=== PATIENT | female | born 1945 | race Caucasian/White ===

== ENCOUNTER → 2017-10-01 16:00 | Outpatient (CLI) | payer MEDICARE, MEDICAID, SELFPAY ==
--- NOTE | 2017-10-01 16:00 | DT_ITS ---
This patient was seen during an EMR downtime September 27, 2017 - October 04, 2017. This patient may have a combination of paper and electronic documentation or all paper documentation. All documentation is viewable within the e-chart portion of [employer] for each patient visit.
[2017-10-05 16:43] LABS: Hematocrit 37.9 % (37-47); Hemoglobin 11.3 g/dl (12.0-15.0); Mean Corpuscular Hgb 26.1 pg (27.0-32.0); Mean Corpuscular Volume 87.5 fL (81-99); Red Blood Count 4.33 M/mm3 (4.2-5.4); White Blood Count 11.5 K/mm3 (4.4-11.0)
[2017-10-05 16:44] LABS: Absolute Neutrophil Count 6.3 X10^3/uL (2.0-7.7); Basophil# 0.03 X10^3/uL; Basophil% 0.3 % (0-1); Eosinophil# 0.05 X10^3/uL; Eosinophils% 0.4 % (0-5); Lymphocyte % 23.6 % (19-41); Mean Corp Hgb Conc 29.8 g/gl (32-36); Mean Platelet Vol. 9.4 fl (6.2-12.0); Monocyte# 2.31 X10^3/uL; Monocyte% 20.2 % (0-10); Neutrophil # 6.32 X10^3/uL (2.7-7.7); Neutrophil % 55.1 % (47-70); POSITIVE COUNT NO; POSITIVE DIFFERENTIAL NO; POSITIVE MORPHOLOGY NO; Platelet Count 490 K/mm3 (150-450); RBC Distribution Width CV 14.9 % (11.6-14.6); RBC Distribution Width SD 47.1 fl (35.1-43.9)
[2017-10-05 16:54] LABS: ALB/GLOB Ratio 0.6 RATIO (0.9-2.4); AST(SGOT) 15 U/L (15-37); Alanine Aminotransfer ALT/SGPT 10 U/L (13-56); Albumin, Serum 2.7 g/dL (3.2-5.0); Alkaline Phosphatase 102 U/L (45-117); BUN 5 mg/dL (7-18); BUN/Creat Ratio 10.4 RATIO (10-20); Calcium,Total 8.9 mg/dL (8.5-10.1); Cholesterol 111 mg/dL (200); Creatinine, Serum 0.48 mg/dL (0.55-1.02); EST Glomerular Filtration Rate 135 mL/min (>60); Est Glom Filt Rate - Afr Amer 164 mL/min (>60); Globulin 4.6 g/dL (2.2-4.2); Glucose 102 mg/dL (74-106); Protein, Total 7.3 g/dL (6.4-8.2)
[2017-10-05 16:55] LABS: Anion Gap 8 (5-15); Chloride 100 mmol/L (98-107); High Density Lipoprotein 43 mg/dL; Potassium 3.5 mmol/L (3.5-5.1); Sodium Level 137 mmol/L (136-145); Thyroid Stim Hormone (TSH) 0.74 uIU/mL (0.358-3.74); Triglycerides 93 mg/dL; Very Low Density Lipoprotein 19 mg/dL (5-40)
[2017-10-05 17:07] LABS: Hemoglobin A1c 5.5 % (4.2-6.3)
== END ==
PROVIDERS: Visit Provider Family Medicine
DX: E11.9 Type 2 diabetes mellitus without complications (principal); Z72.0 Tobacco use
CPT/HCPCS: 36415; 80053; 80061; 83036; 84443; 85025

== ENCOUNTER → 2017-10-13 14:24 | Outpatient (CLI) | payer MEDICARE, SELFPAY ==
--- NOTE | 2017-10-13 14:33 | RAD_ITS ---
STUDY: X-RAY CHEST REASON FOR EXAM: Female, 72 years old. Cough, COPD exacerbation. TECHNIQUE: PA and lateral chest COMPARISON: None. FINDINGS: There is mild underlying pulmonary hyperlucency with flattening of the hemidiaphragms and increased AP diameter of the chest suggesting the presence of underlying COPD/emphysema. There is mild interstitial prominence perihilar bilateral with small bilateral layering pleural effusions and bibasilar atelectasis. There is no significant cardiomegaly. Normal mediastinal silhouette, mercedes and pleural margins. Osteopenia, mild scoliosis. Mild thoracic kyphosis and minimal thoracic degenerative disc disease. RAD/Chest PA and Lateral IMPRESSION: Small bilateral effusions, bibasilar atelectasis, with suspected very minimal perihilar infiltrates. The pattern suggests the possibility of mild CHF. Correlate also for any evidence of acute pneumonia. Electronically Signed: Tobi Pratima, at 15:26 EDT Tel , Service support ,
== END ==
PROVIDERS: Family Provider Family Medicine; PCP Family Medicine; Visit Provider Family Medicine
DX: J44.1 Chronic obstructive pulmonary disease with (acute) exacerbation (principal); N39.0 Urinary tract infection, site not specified
CPT/HCPCS: 71046; 87086; 87088; 87186

== ENCOUNTER → 2017-11-16 08:43 | Outpatient (CLI) | payer MEDICARE, SELFPAY ==
--- NOTE | 2017-11-16 12:03 | PFTCOMP_ITS ---
COMPLETE PULMONARY FUNCTION TEST INTERPRETATION Brief HPI: Patient is a 72 year old female, currently under the care of Dr. Del Valle, who presents to [facility] for complete pulmonary function tests secondary to diagnosis of COPD. Respiratory therapist reports good effort and reproducible results. Interpretation: Forced expiration spirometry shows a moderate large airways obstructive ventilatory defect with an FEV1 of 68% predicted. There is no significant bronchodilator response by ATS criteria. Spirograms are of good quality and plateau slowly, indicating slowly emptying areas of the lungs. The respiratory flow volume loop shows decreased expiratory flow rates at high lung volumes consistent with small airways obstruction. Lung volumes by body plethysmography show a normal total lung capacity at 3.89 L , 93% predicted. All other lung volumes are within normal limits. Diffusion capacity by carbon monoxide is normal at 77% predicted. The airway resistance is elevated. No previous pulmonary function tests were available for review. Impression: Irreversible moderate large airways obstructive ventilatory defect consistent with a diagnosis of chronic bronchitis
== END ==
PROVIDERS: Family Provider Family Medicine; PCP Family Medicine; Visit Provider Family Medicine
DX: J44.9 Chronic obstructive pulmonary disease, unspecified (principal)
CPT/HCPCS: 94060; 94726; 94729

== ENCOUNTER → 2017-11-19 14:04 | Outpatient (CLI) | payer MEDICARE, SELFPAY ==
[2017-11-19 16:06] LABS: Uric Acid 6.6 mg/dL (2.6-6.0)
[2017-11-19 16:20] LABS: Vitamin D,25 Hydroxy 16.1 ng/mL (29.95-100.01)
== END ==
PROVIDERS: Family Provider Family Medicine; PCP Family Medicine; Visit Provider Family Medicine
DX: E55.9 Vitamin D deficiency, unspecified (principal); M10.9 Gout, unspecified
CPT/HCPCS: 36415; 82306; 84550

== ENCOUNTER → 2017-12-20 13:49 | Outpatient (CLI) | payer MEDICARE, SELFPAY | PROVIDERS: Family Provider Family Medicine; PCP Family Medicine; Visit Provider Family Medicine | DX: E04.2 Nontoxic multinodular goiter (principal); I38 Endocarditis, valve unspecified | CPT/HCPCS: 76536; 93306 ==

== ENCOUNTER → 2018-01-11 14:14 | Outpatient (CLI) | payer MEDICARE, SELFPAY | PROVIDERS: Family Provider Family Medicine; PCP Family Medicine; Visit Provider Family Medicine | DX: N39.0 Urinary tract infection, site not specified (principal); Z72.0 Tobacco use; E55.9 Vitamin D deficiency, unspecified; I10 Essential (primary) hypertension; M10.9 Gout, unspecified; E11.9 Type 2 diabetes mellitus without complications | CPT/HCPCS: 87086; 87088; 87186 ==

== ENCOUNTER → 2018-05-03 10:02 | Outpatient (CLI) | payer MEDICARE, SELFPAY ==
[2018-05-03 10:06] LABS: Mucous, Urine 0 SEEN /hpf (<or=2+); Red Blood Cells-Urine 0 SEEN /hpf (0-5)
[2018-05-03 12:15] LABS: Absolute Neutrophil Count 7.2 X10^3/uL (2.0-7.7); Basophil# 0.02 X10^3/uL; Basophil% 0.1 % (0-1); Eosinophil# 0.09 X10^3/uL; Eosinophils% 0.7 % (0-5); Hematocrit 43.2 % (37-47); Hemoglobin 13.6 g/dl (12.0-15.0); Lymphocyte % 29.5 % (19-41); Mean Corp Hgb Conc 31.5 g/gl (32-36); Mean Corpuscular Hgb 27.1 pg (27.0-32.0); Mean Corpuscular Volume 86.1 fL (81-99); Mean Platelet Vol. 9.6 fl (6.2-12.0); Monocyte% 16.2 % (0-10); Neutrophil # 7.21 X10^3/uL (2.7-7.7); Neutrophil % 53.3 % (47-70); Platelet Count 409 K/mm3 (150-450); RBC Distribution Width CV 13.8 % (11.6-14.6); RBC Distribution Width SD 43.3 fl (35.1-43.9); Red Blood Count 5.02 M/mm3 (4.2-5.4); White Blood Count 13.6 K/mm3 (4.4-11.0)
[2018-05-03 12:16] LABS: Differential Indicated SCAN CRITERIA MET; POSITIVE COUNT NO; POSITIVE DIFFERENTIAL YES; POSITIVE MORPHOLOGY NO
[2018-05-03 12:23] LABS: ALB/GLOB Ratio 0.9 RATIO (0.9-2.4); AST(SGOT) 14 U/L (15-37); Alanine Aminotransfer ALT/SGPT 15 U/L (13-56); Albumin, Serum 3.9 g/dL (3.2-5.0); Alkaline Phosphatase 139 U/L (45-117); Anion Gap 9 (5-15); BUN 16 mg/dL (7-18); BUN/Creat Ratio 20.2 RATIO (10-20); Calcium,Total 9.7 mg/dL (8.5-10.1); Chloride 101 mmol/L (98-107); Creatinine, Serum 0.79 mg/dL (0.55-1.02); EST Glomerular Filtration Rate 75 mL/min (>60); Est Glom Filt Rate - Afr Amer 91 mL/min (>60); Globulin 4.4 g/dL (2.2-4.2); Glucose 160 mg/dL (74-106); Potassium 4.8 mmol/L (3.5-5.1); Protein, Total 8.3 g/dL (6.4-8.2); Sodium Level 137 mmol/L (136-145); Uric Acid 7.7 mg/dL (2.6-6.0)
[2018-05-03 12:35] LABS: Color, Urine Yellow (Yellow); Glucose, Dipstick Normal (Normal); Ketone-Dipstick Negative (Negative); Leukocyte Esterase-Dipstick 500 /ul (Negative); Nitrite-Dipstick Negative (Negative); Occult Blood-Urine 25 /ul (Negative); Protein-Dipstick 30 mg/dl (Negative); Urine Bilirubin Dipstick Negative (Negative); Urine Clarity Sl. Cloudy (Clear); Urine Urobilinogen Normal (Normal)
[2018-05-03 12:47] LABS: Bacteria 4+ /hpf (None Seen); Squamous Epithelial Cells - UA 0-5 SEEN /hpf (5-10); White Blood Cells 50-100 SEEN /hpf (0-5)
[2018-05-03 12:53] LABS: Hemoglobin A1c 8.8 % (4.2-6.3)
[2018-05-03 12:59] LABS: Differential Comment SCANNED
[2018-05-03 13:14] LABS: Vitamin D,25 Hydroxy 50.3 ng/mL (29.95-100.01)
== END ==
PROVIDERS: Family Provider Family Medicine; PCP Family Medicine; Visit Provider Family Medicine
DX: E11.9 Type 2 diabetes mellitus without complications (principal); Z72.0 Tobacco use; E55.9 Vitamin D deficiency, unspecified; M10.9 Gout, unspecified; I10 Essential (primary) hypertension; N39.0 Urinary tract infection, site not specified
CPT/HCPCS: 36415; 80053; 81001; 82306; 83036; 84550; 85025; 87086; 87088; 87186

== ENCOUNTER 2018-09-21 00:06 | Inpatient (IN) | payer MEDICARE, SELFPAY ==
[2018-09-21] VITALS (22 sets, daily range): BP systolic 102–198; BP diastolic 52–93; PULSE 50–82; RESP 16–24; TEMP 36.8–37.4; O2SAT 93–100; BMI 28.9; BMI 29.0; BMI 29.2
--- NOTE | 2018-09-21 00:23 | RAD_ITS ---
STUDY: X-RAY - PELVIS AND LEFT HIP REASON FOR EXAM: Female, 73 years old. Left hip pain status post fall TECHNIQUE: 2 views of the left hip with AP view pelvis. COMPARISON: None. FINDINGS: There is a non-specific bowel gas pattern. Normal visualized soft tissue structures. Mild degenerative change of bilateral sacroiliac joints and of the visualized lower lumbar spine. Normal bilateral iliac wings . Normal bilateral superior and inferior pubic rami. Normal pubic symphysis. Normal bilateral ischial tuberosities. Left hip is in normal alignment with moderate degenerative change. Mildly impacted fracture deformity of the mid left femoral neck. Right hip is in normal alignment with mild degenerative change. No right femoral fracture. RAD/HIP, UNI W/ Pelvis 2-3 Views IMPRESSION: 1. Impacted transcervical left femoral neck fracture 2. Mild to moderate bilateral hip and sacroiliac joint osteoarthritic change. Electronically Signed: Nick Hammonds MD at 2:50 EDT Tel , Service support ,
--- NOTE | 2018-09-21 00:25 | ED.DCSUM_ITS ---
- ER Visit Summary Date of Service: 09/21/18 Chief Complaint: Fall History of Present Illness: The patient is a 73 F presenting after fall. Patient states she was using her walker trying to get back into her house. She stepped down one step and lost her balance. She fell onto her left hip. She did not hit her head or lose consciousness. She is not on anticoagulants. She was unable to get up after the fall and EMS was called. Physical Examination: Vitals are stable. Patient is afebrile. Alert no acute distress. HEENT exam is unremarkable. Neck is nontender Lungs are clear and equal bilaterally. Heart is regular rate and rhythm. Abdomen is soft nontender nondistended. Extremities left hip tenderness, left lower extremity externally rotated and shortened, pain with logrolling. Neurovascularly intact distally. Skin is warm and dry. No focal neurologic deficit. Remainder of exam is unremarkable. Emergency Department Course and Treatment: Patient was given morphine, Zofran IV. CBC shows white count 12.2, chemistries unremarkable. Left hip x-ray shows impacted transcervical left femoral neck fracture. Patient was given additional dose of morphine. Discussed with the hospitalist and orthopedics. Disposition: Admission Impression: Left hip fracture status post mechanical fall This note was generated with [employer] dictation software. It may contain incorrect words, spelling, and punctuation that were not noted in review of the chart prior to signing ED Disposition - Plan for ED Patient:
[2018-09-21] MEDS: Ondansetron 4 MG/2 ML Vial IV (00:53)
[2018-09-21] MEDS: Morphine 4 MG/ML Syringe IV ×3 (00:53→04:43)
[2018-09-21 00:57] LABS: Absolute Lymphocyte Count 3.55 X10^3/ul (0.83-4.51); Absolute Neutrophil Count 5.7 X10^3/uL (2.0-7.7); Basophil# 0.02 X10^3/uL; Basophil% 0.2 % (0-1); Eosinophil# 0.08 X10^3/uL; Eosinophils% 0.7 % (0-5); Hematocrit 41.9 % (37-47); Hemoglobin 13.9 g/dl (12.0-15.0); Lymphocyte # 3.55 X10^3/ul (4.0); Mean Corp Hgb Conc 33.2 g/gl (32-36); Mean Corpuscular Hgb 27.7 pg (27.0-32.0); Mean Corpuscular Volume 83.6 fL (81-99); Mean Platelet Vol. 9.4 fl (6.2-12.0); Monocyte% 22.9 % (0-10); Neutrophil # 5.69 X10^3/uL (2.7-7.7); Neutrophil % 46.4 % (47-70); Platelet Count 334 K/mm3 (150-450); RBC Distribution Width SD 42.1 fl (35.1-43.9); Red Blood Count 5.01 M/mm3 (4.2-5.4); White Blood Count 12.2 K/mm3 (4.4-11.0)
[2018-09-21 00:58] LABS: Differential Indicated SCAN CRITERIA MET; POSITIVE COUNT NO; POSITIVE DIFFERENTIAL YES; POSITIVE MORPHOLOGY NO
[2018-09-21 01:08] LABS: Anion Gap 8 (5-15); BUN 18 mg/dL (7-18); BUN/Creat Ratio 20.5 RATIO (10-20); Calcium,Total 9.1 mg/dL (8.5-10.1); Chloride 97 mmol/L (98-107); Creatinine, Serum 0.88 mg/dL (0.55-1.02); EST Glomerular Filtration Rate 67 mL/min (>60); Est Glom Filt Rate - Afr Amer 81 mL/min (>60); Estimated Creatinine Clearance 40.29 ml/min; Glucose 124 mg/dL (74-106); Potassium 3.7 mmol/L (3.5-5.1); Sodium Level 134 mmol/L (136-145)
[2018-09-21 01:33] LABS: Differential Comment SCANNED; Reactive Lymphocyte 2+
--- NOTE | 2018-09-21 03:57 | PCM.HP.STD ---
Problem List (1) Left hip pain Status: Acute History of Present Illness Date of Admission: 09/21/18 Chief Complaint: Left hip pain The patient is a 73 year old F was seen in the emergency room at [facility] after sustaining a fall at home landing on her left hip and complaining of inability to ambulate due to severe left hip pain. Work-up in the emergency room included x-rays of the left hip and pelvis, there was noted to be an impacted transcervical left femoral neck fracture, lab was drawn, white blood cells were slightly elevated at 12.2, glucose was 124, sodium was 134 and the remainder the patient's labs were unremarkable. Patient will be admitted to [place] [address], orthopedic surgery will be consulted (Dr. Jackson). Past Medical History Allergies Sulfa (Sulfonamide Antibiotics) Allergy (Verified 09/21/18 00:17) Hives atorvastatin Adverse Reaction (Verified 09/21/18 00:17) Nausea Home Medications: Ambulatory Orders Medication Instructions Recorded Diltiazem HCl [Cartia Xt] 1 tab PO DAILY 09/21/18 Ergocalciferol [Vitamin D] 1 tab PO QWEEK 09/21/18 Famotidine 20 mg PO BID 09/21/18 Fluticasone/Vilanterol [Breo 1 puff IH DAILY PRN 09/21/18 Ellipta 100-25 Mcg INH] Hydrochlorothiazide [Hctz] 25 mg PO DAILY 09/21/18 Lisinopril [Zestril] 20 mg PO DAILY 09/21/18 Metformin HCl 1,000 mg PO BID 09/21/18 Metoprolol Succinate 100 mg PO BID 09/21/18 Pyridoxine HCl (Vitamin B6) [B-6] 100 mg PO DAILY 09/21/18 Tobramycin Sulf 0.3% [Tobrex] 1 drop LEFT EYE Q4H PRN 09/21/18 Surgical History: cholecystectomy, hysterectomy, tonsillectomy, - - Repair of right femoral fracture Psychiatric History: No pertinent psych hx 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 Lives: With Family Smoking Status: Current every day smoker Tobacco Use: Cigarettes Alcohol: Occasional Drugs: None - *Family History Maternal History Items: Heart Disease Paternal History Items: Heart Disease Review of Systems Constitutional: Denies: Anorexia, Chills, Fever, Night Sweats, Malaise, Weakness, Weight Change, Fatigue Eyes: Denies: Conjunctivae Inflammation, Double vision, Drainage HEENT: Denies: Difficulty Swallowing, Dysphasia, Ear Pain, Eye Pain, Hearing Changes, Nasal bleeding, Nasal Congestion, Post Nasal Drip Cardiovascular: Denies: Chest Pain, Claudication, Chest Pressure, Chest Tightness, Edema, Heaviness, Light Headedness, Orthopnea, Palpitations, Paroxysmal Noc. Dyspnea Respiratory: Denies: Cough, Hemoptysis, Pleuritic Pain, Shortness of Breath, Shortness of breath at rest, Shortness of breath upon exertion, Sputum production Gastrointestinal: Denies: Abdominal Pain, Constipation, Diarrhea, Hematemesis, Hematochezia, Nausea, Melena, Vomiting Genitourinary: Denies: Dysuria, Frequency, Hematuria, Hesitancy, Nocturia, Retention, Urgency Gynecological: Denies: Breast symptoms Musculoskeletal: Reports: Joint Pain - Left hip pain since sustaining fall, Joint Tenderness - Tenderness over left hip area, Leg Pain - Left leg pain since fall. Denies: Back Pain, Hand Pain, Joint stiffness, Joint swelling Skin: Denies: Dryness, Pruritis, Rash Neurological: Denies: Blurred vision, Double vision, Change in Speech, Slurred speech, Difficulty swallowing, Focal weakness, Headaches, Incoordination, Numbness, Tingling, Tremor Psychiatric: Denies: Anxiety, Depression, Homicidal Ideations, Suicidal Ideations Endocrine: Denies: Change in Body Habitus, Heat/ Cold Intolerance, Polydipsia, Polyuria Hematologic/ Lymphatic: Denies: Adenopathy, Anemia, Easy Bruising, Easy Bleeding, Petechiae, Purpura VTE Information - Inpt Only VTE Present on Admission: No VTE Mechan Device Prophylaxis: None VTE Pharm Prophylaxis ordered?: Yes Patient Problems: Active and Suspected Problems Left hip pain (Acute) - Physical Exam General: Alert, Oriented x3, Cooperative, No apparent distress, Well developed, Well nourished HEENT: Atraumatic, PERRLA, EOMI, Normocephalic Oral: Moist Mucosa Neck: Supple, No JVD, Negative Carotid Bruits, No Nuchal Rigidity, Trachea Midline, Thyroid Normal Size and Texture Lungs: Clear to auscultation, Normal air movement, No rhonchi, No wheeze, No rales Cardiovascular: Regular rate, Regular Rhythm, Normal S1, Normal S2, No murmurs, PMI Normal, No rub noted, No Gallop, - - Occasional ectopic beats were noted on examination Abdomen: Bowel Sounds Present, Soft, Non Tender, Non-Distended, No hernias noted Extremities: No clubbing, No cyanosis, Capillary Refill Less than 3 Seconds, Edema - Mild +1 mm pitting edema is noted of both lower legs Skin: No rashes, No breakdown Musculoskeletal: Tenderness - Tenderness to palpation is noted over the left hip area Neurological: Cranial nerves II-XII grossly intact, Neuro grossly intact, Sensory exam intact to light touch and pain Psych/Mental Status: Normal Affect, Appropriate, Alert and oriented to time, place, person, mood and affect Vital Signs Temp Pulse Resp BP Pulse Ox 98.6 F 58 L 16 168/58 H 93 09/21/18 00:07 09/21/18 02:44 09/21/18 02:44 09/21/18 02:44 09/21/18 02:44 Oxygen Delivery Method Room Air Weight: 67.261 kg Body Mass Index (BMI) 28.9 Laboratory Tests Past 24 Hrs 09/21/18 09/21/18 00:45 00:45 WBC 12.2 H RBC 5.01 Hgb 13.9 Hct 41.9 MCV 83.6 MCH 27.7 MCHC 33.2 RDW 14.0 RDW Differential 42.1 Plt Count 334 MPV 9.4 Immature Gran % (Auto) 0.800 Neut % (Auto) 46.4 L Lymph % (Auto) 29.0 [place] % (Auto) 22.9 H Eos % (Auto) 0.7 Baso % (Auto) 0.2 Absolute Neuts (auto) 5.7 Absolute Lymphs (auto) 3.55 Total Counted Not Reportable Differential Comment SCANNED Diff Path Review May foll Reactive Lymphocytes 2+ Sodium 134 L Potassium 3.7 Chloride 97 L Carbon Dioxide 29.0 Anion Gap 8 BUN 18 Creatinine 0.88 Estim Creat Clear Calc 40.29 Est GFR (MDRD) Af Amer 81 Est GFR (MDRD) Non-Af 67 BUN/Creatinine Ratio 20.5 H Glucose 124 H Calcium 9.1 Assessment/Plan All Active Problems Left hip pain (Acute) #1 left impacted transcervical femoral neck fracture secondary to osteoporosis and mechanical fall-patient will be admitted to [facility] 3, she will be seen in consultation by orthopedic surgery #2 type 2 diabetes-blood sugars will be monitored, patient was placed on sliding scale insulin per protocol #3 chronic obstructive pulmonary disease-patient uses a Brio elliptica, I will place her on Pulmicort aerosols twice daily and albuterol aerosols as needed #4 osteoporosis #5 hypertension #6 history of right foot [id number] is secondary to her previous right femoral shaft fracture, patient uses a walker chronically, I discussed the possibility that the patient may need to go to an extended care facility for short-term rehab after her surgery this admission, patient understood that this will probably happen as she requires a walker to ambulate and has a right foot drop. Patient states she lives with her family due to the fact that she cannot live independently because she cannot ambulate without a walker. Code Visit Inpatient E&M: 80188 Init Hosp L3
--- NOTE | 2018-09-21 04:01 | HP.PCM_ITS ---
Problem List (1) Left hip pain Status: Acute History of Present Illness Date of Admission: 09/21/18 Chief Complaint: Left hip pain The patient is a 73 year old F was seen in the emergency room at [facility] after sustaining a fall at home landing on her left hip and complaining of inability to ambulate due to severe left hip pain. Work-up in the emergency room included x-rays of the left hip and pelvis, there was noted to be an impacted transcervical left femoral neck fracture, lab was drawn, white blood cells were slightly elevated at 12.2, glucose was 124, sodium was 134 and the remainder the patient's labs were unremarkable. Patient will be admitted to [place] [address], orthopedic surgery will be consulted (Dr. Jackson). Past Medical History Allergies Sulfa (Sulfonamide Antibiotics) Allergy (Verified 09/21/18 00:17) Hives atorvastatin Adverse Reaction (Verified 09/21/18 00:17) Nausea Home Medications: Ambulatory Orders Medication Instructions Recorded Diltiazem HCl [Cartia Xt] 1 tab PO DAILY 09/21/18 Ergocalciferol [Vitamin D] 1 tab PO QWEEK 09/21/18 Famotidine 20 mg PO BID 09/21/18 Fluticasone/Vilanterol [Breo 1 puff IH DAILY PRN 09/21/18 Ellipta 100-25 Mcg INH] Hydrochlorothiazide [Hctz] 25 mg PO DAILY 09/21/18 Lisinopril [Zestril] 20 mg PO DAILY 09/21/18 Metformin HCl 1,000 mg PO BID 09/21/18 Metoprolol Succinate 100 mg PO BID 09/21/18 Pyridoxine HCl (Vitamin B6) [B-6] 100 mg PO DAILY 09/21/18 Tobramycin Sulf 0.3% [Tobrex] 1 drop LEFT EYE Q4H PRN 09/21/18 Surgical History: cholecystectomy, hysterectomy, tonsillectomy, - - Repair of right femoral fracture Psychiatric History: No pertinent psych hx 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 Lives: With Family Smoking Status: Current every day smoker Tobacco Use: Cigarettes Alcohol: Occasional Drugs: None - *Family History Maternal History Items: Heart Disease Paternal History Items: Heart Disease Review of Systems Constitutional: Denies: Anorexia, Chills, Fever, Night Sweats, Malaise, Weakness, Weight Change, Fatigue Eyes: Denies: Conjunctivae Inflammation, Double vision, Drainage HEENT: Denies: Difficulty Swallowing, Dysphasia, Ear Pain, Eye Pain, Hearing Changes, Nasal bleeding, Nasal Congestion, Post Nasal Drip Cardiovascular: Denies: Chest Pain, Claudication, Chest Pressure, Chest Tightness, Edema, Heaviness, Light Headedness, Orthopnea, Palpitations, Paroxysmal Noc. Dyspnea Respiratory: Denies: Cough, Hemoptysis, Pleuritic Pain, Shortness of Breath, Shortness of breath at rest, Shortness of breath upon exertion, Sputum production Gastrointestinal: Denies: Abdominal Pain, Constipation, Diarrhea, Hematemesis, Hematochezia, Nausea, Melena, Vomiting Genitourinary: Denies: Dysuria, Frequency, Hematuria, Hesitancy, Nocturia, Retention, Urgency Gynecological: Denies: Breast symptoms Musculoskeletal: Reports: Joint Pain - Left hip pain since sustaining fall, Joint Tenderness - Tenderness over left hip area, Leg Pain - Left leg pain since fall. Denies: Back Pain, Hand Pain, Joint stiffness, Joint swelling Skin: Denies: Dryness, Pruritis, Rash Neurological: Denies: Blurred vision, Double vision, Change in Speech, Slurred speech, Difficulty swallowing, Focal weakness, Headaches, Incoordination, Numbness, Tingling, Tremor Psychiatric: Denies: Anxiety, Depression, Homicidal Ideations, Suicidal Ideations Endocrine: Denies: Change in Body Habitus, Heat/ Cold Intolerance, Polydipsia, Polyuria Hematologic/ Lymphatic: Denies: Adenopathy, Anemia, Easy Bruising, Easy Bleeding, Petechiae, Purpura VTE Information - Inpt Only VTE Present on Admission: No VTE Mechan Device Prophylaxis: None VTE Pharm Prophylaxis ordered?: Yes Patient Problems: Active and Suspected Problems Left hip pain (Acute) - Physical Exam General: Alert, Oriented x3, Cooperative, No apparent distress, Well developed, Well nourished HEENT: Atraumatic, PERRLA, EOMI, Normocephalic Oral: Moist Mucosa Neck: Supple, No JVD, Negative Carotid Bruits, No Nuchal Rigidity, Trachea Midline, Thyroid Normal Size and Texture Lungs: Clear to auscultation, Normal air movement, No rhonchi, No wheeze, No rales Cardiovascular: Regular rate, Regular Rhythm, Normal S1, Normal S2, No murmurs, PMI Normal, No rub noted, No Gallop, - - Occasional ectopic beats were noted on examination Abdomen: Bowel Sounds Present, Soft, Non Tender, Non-Distended, No hernias noted Extremities: No clubbing, No cyanosis, Capillary Refill Less than 3 Seconds, Edema - Mild +1 mm pitting edema is noted of both lower legs Skin: No rashes, No breakdown Musculoskeletal: Tenderness - Tenderness to palpation is noted over the left hip area Neurological: Cranial nerves II-XII grossly intact, Neuro grossly intact, Sensory exam intact to light touch and pain Psych/Mental Status: Normal Affect, Appropriate, Alert and oriented to time, place, person, mood and affect Vital Signs Temp Pulse Resp BP Pulse Ox 98.6 F 58 L 16 168/58 H 93 09/21/18 00:07 09/21/18 02:44 09/21/18 02:44 09/21/18 02:44 09/21/18 02:44 Oxygen Delivery Method Room Air Weight: 67.261 kg Body Mass Index (BMI) 28.9 Laboratory Tests Past 24 Hrs 09/21/18 09/21/18 00:45 00:45 WBC 12.2 H RBC 5.01 Hgb 13.9 Hct 41.9 MCV 83.6 MCH 27.7 MCHC 33.2 RDW 14.0 RDW Differential 42.1 Plt Count 334 MPV 9.4 Immature Gran % (Auto) 0.800 Neut % (Auto) 46.4 L Lymph % (Auto) 29.0 [place] % (Auto) 22.9 H Eos % (Auto) 0.7 Baso % (Auto) 0.2 Absolute Neuts (auto) 5.7 Absolute Lymphs (auto) 3.55 Total Counted Not Reportable Differential Comment SCANNED Diff Path Review May foll Reactive Lymphocytes 2+ Sodium 134 L Potassium 3.7 Chloride 97 L Carbon Dioxide 29.0 Anion Gap 8 BUN 18 Creatinine 0.88 Estim Creat Clear Calc 40.29 Est GFR (MDRD) Af Amer 81 Est GFR (MDRD) Non-Af 67 BUN/Creatinine Ratio 20.5 H Glucose 124 H Calcium 9.1 Assessment/Plan All Active Problems Left hip pain (Acute) #1 left impacted transcervical femoral neck fracture secondary to osteoporosis and mechanical fall-patient will be admitted to [facility] 3, she will be seen in consultation by orthopedic surgery #2 type 2 diabetes-blood sugars will be monitored, patient was placed on sliding scale insulin per protocol #3 chronic obstructive pulmonary disease-patient uses a Brio elliptica, I will place her on Pulmicort aerosols twice daily and albuterol aerosols as needed #4 osteoporosis #5 hypertension #6 history of right foot [id number] is secondary to her previous right femoral shaft fracture, patient uses a walker chronically, I discussed the possibility that the patient may need to go to an extended care facility for short-term rehab after her surgery this admission, patient understood that this will probably happen as she requires a walker to ambulate and has a right foot drop. Patient states she lives with her family due to the fact that she cannot live independently because she cannot ambulate without a walker. Code Visit Inpatient E&M: 28336 Init Hosp L3
--- NOTE | 2018-09-21 04:09 | EKG12_ITS ---
Test Reason : AM Blood Pressure : / mmHG Vent. Rate : 058 BPM Atrial Rate : 058 BPM P-R Int : 114 ms QRS Dur : 110 ms QT Int : 474 ms P-R-T Axes : 031 -39 092 degrees QTc Int : 465 ms Sinus bradycardia with Premature atrial complexes in a pattern of bigeminy Left axis deviation Incomplete left bundle branch block Nonspecific ST and T wave abnormality Abnormal ECG No previous ECGs available Confirmed by KUMAR SINGH, MARGARITA ([id number]), photographic editor GALINA BUCIO ([id number] on 09/26/2018 2:46:40 PM Referred By: Confirmed By:MARGARITA HEATH MD
--- NOTE | 2018-09-21 04:10 | RAD_ITS ---
STUDY: X-RAY CHEST REASON FOR EXAM: Female, 73 years old. Preoperative for hip fracture TECHNIQUE: Single AP portable view of the chest. COMPARISON: October 13, 2017 FINDINGS: In the right lateral lower lobe, there is a rounded pulmonary nodule measuring 1.5 cm. Could possibly be calcified. Lungs are otherwise clear. The lungs are clear and expanded. There is no demonstrated pleural abnormality. There is mild cardiac enlargement. Normal mediastinum and mercedes. Normal visualized pulmonary arteries. Normal visualized aortic arch and descending thoracic aorta. There are diffuse degenerative changes of the visualized thoracic spine. Normal visualized ribs, clavicles, and shoulders. There is no demonstrated abnormality of the visualized soft tissue structures of the upper abdomen. RAD/Chest 1 View (Portable) IMPRESSION: Lungs are clear. Possible partially calcified right lower lobe nodule. Recommend chest CT to further evaluate Electronically Signed: Manolo Meneses DO at 9:03 EDT Tel , Service support ,
[2018-09-21] MEDS: 0.9% Normal Saline 1,000 ML 75 ML IV (04:21)
[2018-09-21] MEDS: 0.9% NaCl Peripheral Flush Adult/Peds IV (04:22)
[2018-09-21] MEDS: Insulin Lispro 100 UNIT/ML INSULN.PEN SC ×2 (06:44→16:06)
[2018-09-21 06:56] LABS: Bedside Glucose 181 mg/dL (70-110)
[2018-09-21] MEDS: Budesonide Respules 0.5 MG/2 ML AMPUL.NEB. INHALATION (07:00)
[2018-09-21] MEDS: Metoprolol(XL)Succ 100 MG Tablet PO ×2 (07:19→21:30)
[2018-09-21] MEDS: Famotidine 20 MG Tablet PO ×2 (07:19→21:31)
[2018-09-21] MEDS: Lisinopril 20 MG Tablet PO (07:20)
[2018-09-21] MEDS: hydroCHLOROthiazide 25 MG Tablet PO (07:21)
[2018-09-21] MEDS: dilTIAZem CD 180 MG Capsule PO (07:25)
--- NOTE | 2018-09-21 08:15 | NURSING ---
Daughter Lisandra called, aware of surgery time this am and warehouse picker will be at 0915 from the unit.
--- NOTE | 2018-09-21 08:33 | NURSING ---
called report to ac
--- NOTE | 2018-09-21 08:34 | NURSING ---
pt left for surgery
--- NOTE | 2018-09-21 09:20 | CON.PCM_ITS ---
Reason for Consult Date of Consultation: 09/21/18 Reason for Consultation: Displaced left subcapital femoral neck fracture. Requested by Dr Hardin History of Present Illness: The patient is a 73 year old F with history of multiple medical comorbidities and previous right femur fracture about a year ago. After her right femur fracture patient had a foot drop which has been chronic. She lives at home with her family and is a smoker and uses a walker due to her right foot drop and limited mobility. In public she states she uses a scooter at the grocery store. She was walking in the house from smoking a cigarette last night when she tripped and had a mechanical fall. She had left hip pain. Left hip pain is rated 10 out of 10 located in the left thigh. No associated numbness and tingling. Pain is relieved with immobilization, increased with movement. No fevers chills or night sweats. No lightheadedness dizziness or loss of consciousness. Past Medical History Allergies Sulfa (Sulfonamide Antibiotics) Allergy (Verified 09/21/18 00:17) Hives atorvastatin Adverse Reaction (Verified 09/21/18 00:17) Nausea Home Medications: Ambulatory Orders Medication Instructions Recorded Acetaminophen [Tylenol Extra 500 - 1,000 mg PO Q6H PRN PRN 09/21/18 Strength] Diltiazem HCl [Cartia Xt] 240 mg PO DAILY 09/21/18 Ergocalciferol [Vitamin D] 1 tab PO QWEEK 09/21/18 Famotidine 20 mg PO BID 09/21/18 Fluticasone/Vilanterol [Breo 1 puff IH DAILY PRN 09/21/18 Ellipta 100-25 Mcg INH] Hydrochlorothiazide [Hctz] 25 mg PO DAILY 09/21/18 Lisinopril [Zestril] 20 mg PO BID 09/21/18 Metformin HCl 500 mg PO BID 09/21/18 Metoprolol Succinate 100 mg PO DAILY 09/21/18 Pyridoxine HCl (Vitamin B6) [B-6] 100 mg PO DAILY 09/21/18 Tobramycin Sulf 0.3% [Tobrex] 1 drop LEFT EYE TID 09/21/18 Surgical History: cholecystectomy, hysterectomy, tonsillectomy, - - Repair of right femoral fracture Psychiatric History: No pertinent psych hx 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 Lives: With Family Smoking Status: Current every day smoker Tobacco Use: Cigarettes Alcohol: Occasional Drugs: None - *Family History Maternal History Items: Heart Disease Paternal History Items: Heart Disease Review of Systems Constitutional: Denies: Chills, Fever, Weight Change HEENT: Denies: Head Aches, Sinus Congestion, Sinus Drainage Cardiovascular: Denies: Chest Pain, Palpitations Respiratory: Denies: Cough, Shortness of breath at rest, Sputum production Gastrointestinal: Denies: Abdominal Pain, Nausea, Vomiting Genitourinary: Denies: Dysuria Musculoskeletal: Reports: Joint Pain, Joint Tenderness Skin: Denies: Rash, Wounds Neurological: Reports: - - Chronic right foot drop. Denies: Focal weakness, Numbness, Tingling Psychiatric: Denies: Anxiety, Depression, Homicidal Ideations, Suicidal Ideations Hematologic/ Lymphatic: Denies: Easy Bruising, Easy Bleeding Patient Problems: Active and Suspected Problems Left hip pain (Acute) Objective: Left femur x-ray shows a displaced subcapital femoral neck fracture - Physical Exam General: Alert, Oriented x3, Cooperative Extremities: - - Left lower extremity: Skin clean, dry, and intact. Limb is shortened and externally rotated Motor is intact dorsiflexion, EHL and plantar flexion. Sensation is intact to light touch saphenous, anne,l superficial peroneal, deep peroneal and tibial distributions. Calves are soft and supple. Vital Signs Temp Pulse Resp BP Pulse Ox 98.4 F 68 18 165/84 H 93 09/21/18 07:28 09/21/18 07:28 09/21/18 07:28 09/21/18 07:28 09/21/18 07:28 Oxygen Delivery Method Room Air Weight: 149 lb 8 oz Body Mass Index (BMI) 29.2 Intake and Output for Last 24 Hours 09/19/18 09/20/18 09/21/18 23:59 23:59 23:59 Intake Total 70 / 70 Output Total 525 / 525 Balance -455 / -455 Laboratory Tests Past 24 Hrs 09/21/18 09/21/18 00:45 00:45 WBC 12.2 H RBC 5.01 Hgb 13.9 Hct 41.9 MCV 83.6 MCH 27.7 MCHC 33.2 RDW 14.0 RDW Differential 42.1 Plt Count 334 MPV 9.4 Immature Gran % (Auto) 0.800 Neut % (Auto) 46.4 L Lymph % (Auto) 29.0 [place] % (Auto) 22.9 H Eos % (Auto) 0.7 Baso % (Auto) 0.2 Absolute Neuts (auto) 5.7 Absolute Lymphs (auto) 3.55 Total Counted Not Reportable Differential Comment SCANNED Diff Path Review May foll Reactive Lymphocytes 2+ Sodium 134 L Potassium 3.7 Chloride 97 L Carbon Dioxide 29.0 Anion Gap 8 BUN 18 Creatinine 0.88 Estim Creat Clear Calc 40.29 Est GFR (MDRD) Af Amer 81 Est GFR (MDRD) Non-Af 67 BUN/Creatinine Ratio 20.5 H Glucose 124 H Calcium 9.1 POC Glucose 09/21/18 06:41 POC Glucose 181 H Assessment/Plan All Active Problems Left hip pain (Acute) Displaced left subcapital femoral neck fracture Natural history of the disease process and treatment options were discussed with patient. At this time I recommended a left hip hemiarthroplasty based on patient's limited mobility, maintained joint spaces and overall medical comorbidities. Risks and benefits of the procedure were discussed the patient including but not limited to blood loss, DVTs, PEs, neurovascular damage, infec tion, the risk of anesthesia including loss of life. Patient demonstrates an understanding medical clearance has been obtained we will proceed with surgery today. Patient is n.p.o. 2 g of Ancef will be ordered on-call to the operating room. Patient is adequately consented and cleared. [facility] Office:
[2018-09-21 09:46] LABS: Hemoglobin A1c 7.1 % (4.2-6.3)
--- NOTE | 2018-09-21 10:00 | RAD_ITS ---
STUDY: X-RAY -LEFT HIP REASON FOR EXAM: Female, 73 years old. Total hip. TECHNIQUE: Fluoroscopic assistance was provided to Dr. Lopez. 2 fluoroscopic spot views of the left hip are submitted. FLUOROSCOPY TIME: 3.3 seconds. RADIATION DOSAGE (If Supplied By Facility): 0.33 mGy COMPARISON: The pelvis and additional views of the left hip 0123 hours. FINDINGS: There is a non-specific bowel gas pattern. Normal visualized soft tissue structures. Normal left superior and inferior pubic rami. Normal pubic symphysis. Normal disc and. The patient has undergone left total hip arthroplasty. Following resection of the femoral head and neck, metal bipolar hip prosthesis was placed. Radiopaque cement surrounds the stem of the femoral prosthesis. The acetabular and femoral components appear well seated, and in anatomic alignment. Gas lucencies overlapping the upper consistent with recent surgery. There is no demonstrated acute fracture. RAD/Hip 1 view with Pelvis IMPRESSION: Status post left total hip arthroplasty. Electronically Signed: Dipesh Estrada MD at 14:54 EDT , Service support ,
--- NOTE | 2018-09-21 10:15 | HIP_PTH ---
PATIENT: MARTHA GRAHAM LOC: MS3 U#:[id number] AGE/SX: 73/F ROOM: [facility]306 RE09/21/[address]: Dr. Windy Walker MD : 1945 BED: 1 DIS: 09/26/2018 SPEC #: [id number] RECD: 09/22/18 09:50 STATUS: MAXINE REQ #: [id number] JEANNIE: 09/21/18 10:[address]: Cristino Lopez DEPT: SURGICAL PATHOLOGY RECD BY: Jesus Brumfield ENTERED: 09/22/18 13:11 SP TYPE: TOTAL HIP OTHR DR: MD Dr. Geremias Sheikh DO Dr. Mark Tereletsky, DO Dr. Nana Yaa Koram, MD Tissues: Hip, NOS Procedures: Decalcification bone/plaque Surgery Specimen Level IV HEADER OPERATION: Hemiarthroplasty, hip anterior PRE-OP DIAGNOSIS: Impacted transcervical left femoral neck fracture TISSUE SUBMITTED: Femoral head MICROSCOPIC DIAGNOSIS Femoral head, hemiarthroplasty: Femoral head with focal area of hemorrhage, clinically impacted transcervical left femoral neck fracture. BESSY:huong 09/28/18 MICROSCOPIC DESCRIPTION Slides are reviewed. GROSS DESCRIPTION Received in fixative is one container labeled with the patient's name and designated femoral head. The specimen consists of a fam femoral head measuring 4.7 x 4.5 cm with a femoral neck fracture site at 3.5 cm. The articular surface of the femoral head is fam with some focal granularity. The fracture site shows uneven bone with recent hemorrhage. Crm Developer sections are submitted in two cassettes after decalcification. / CE:huong 09/22/18 TC:5 CPT: 15896, 31563
[2018-09-21] MEDS: Cefazolin 2 GM in 0.9% Normal Saline 100 ML IV (11:27)
--- NOTE | 2018-09-21 11:28 | PCM.PN.HOSP ---
Patient Problems: Active and Suspected Problems Left hip pain (Acute) Subjective: Patient seen and examined. She was admitted through the ED in the early hours of this morning after she fell at home and landed on her left hip was brought in due to severe pain in her left hip and inability to ambulate. She was found to have an impacted transcervical left femoral neck fracture. She has been managed for left hip fracture due to mechanical fall and is awaiting left hip hemiarthroplasty. Patient complains of pain and states is not well controlled. She denies any fever chills, palpitations chest pain, nausea vomiting or diarrhea. Review of systems otherwise negative. Labs and vitals reviewed. She is to go for surgery today. Vitals/I&O's: Vital Signs Temp Pulse Resp BP Pulse Ox 98.4 F 68 18 165/84 H 93 09/21/18 07:28 09/21/18 07:28 09/21/18 07:28 09/21/18 07:28 09/21/18 07:28 Oxygen Delivery Method Room Air Weight: 149 lb 8 oz Body Mass Index (BMI) 29.2 Intake and Output for Last 24 Hours 09/19/18 09/20/18 09/21/18 23:59 23:59 23:59 Intake Total 70 / 70 Output Total 525 / 525 Balance -455 / -455 General: Alert, Oriented x3, Cooperative, No apparent distress HEENT: Atraumatic, PERRLA, EOMI, Normocephalic Oral: Moist Mucosa Neck: Supple, No JVD, Negative Carotid Bruits Lungs: Clear to auscultation, Normal air movement, No rhonchi, No wheeze, No rales Cardiovascular: Regular rate, Regular Rhythm, Normal S1, Normal S2, No murmurs Abdomen: Bowel Sounds Present, Soft, Non Tender, Non-Distended, No Hepato-splenomegaly Extremities: No edema, Capillary Refill Less than 3 Seconds Skin: No rashes, No breakdown Musculoskeletal: - - Left leg slightly shortened with minimal external rotation. Lymphatic: No Cervical, Supraclavicular, or Inguinal Adenopathy Neurological: Cranial nerves II-XII grossly intact, Neuro grossly intact Psych/Mental Status: Normal Affect, Appropriate, Alert and oriented to time, place, person, mood and affect Laboratory Results 09/21/18 00:45: WBC 12.2 H, RBC 5.01, Hgb 13.9, Hct 41.9, MCV 83.6, MCH 27.7, MCHC 33.2, RDW 14.0, RDW Differential 42.1, Plt Count 334, MPV 9.4, Immature Gran % (Auto) 0.800, Neut % (Auto) 46.4 L, Lymph % (Auto) 29.0, Todd % (Auto) 22.9 H, Eos % (Auto) 0.7, Baso % (Auto) 0.2, Absolute Neuts (auto) 5.7, Absolute Lymphs (auto) 3.55, Total Counted Not Reportable, Differential Comment SCANNED, Diff Path Review August, Reactive Lymphocytes 2+ 09/21/18 00:45: Sodium 134 L, Potassium 3.7, Chloride 97 L, Carbon Dioxide 29.0, Anion Gap 8, BUN 18, Creatinine 0.88, Estim Creat Clear Calc 40.29, Est GFR (MDRD) Af Amer 81, Est GFR (MDRD) Non-Af 67, BUN/Creatinine Ratio 20.5 H, Glucose 124 H, Calcium 9.1 09/21/18 06:41: POC Glucose 181 H 09/21/18 09:18: Hemoglobin A1c 7.1 H 09/21/18 09:18: Blood Type A POSITIVE, Antibody Screen NEGATIVE Diagnostic Data Hip/Pelvis X-Ray 09/21/18 00:23 IMPRESSION: 1. Impacted transcervical left femoral neck fracture 2. Mild to moderate bilateral hip and sacroiliac joint osteoarthritic change. Electronically Signed: Nick Hammonds MD at 2:50 EDT Tel , Service support , Chest X-Ray 09/21/18 04:10 IMPRESSION: Lungs are clear. Possible partially calcified right lower lobe nodule. Recommend chest CT to further evaluate Electronically Signed: Manolo Meneses DO at 9:03 EDT Tel , Service support , Current Medications Acetaminophen (Tylenol) 650 mg PO Q6H PRN PRN PRN Reason: Mild Pain (1-3)/Temp > 100.7 F Albuterol Sulfate (Ventolin Aerosols) 2.5 mg INHALATION Q2H PRN PRN PRN Reason: DYSPNEA Budesonide (Pulmicort Aerosol) 0.5 mg INHALATION BID.RT [facility] Last Admin: 09/21/18 07:00 Dose: 0.5 mg Calcium Carbonate (Tums) 500 mg PO BIDCM [facility] Last Admin: 09/21/18 07:22 Dose: Not Given Cholecalciferol (Vitamin D) 2,000 unit PO DAILY [facility] Last Admin: 09/21/18 07:22 Dose: Not Given Diltiazem HCl (Cardizem Cd) 180 mg PO DAILY [facility] Last Admin: 09/21/18 07:25 Dose: 180 mg Docusate Sodium (Colace) 200 mg PO DAILY [facility] Last Admin: 09/21/18 07:21 Dose: Not Given Enoxaparin Sodium (Lovenox) 40 mg SC DAILY@1000 [facility] Last Admin: 09/21/18 07:21 Dose: Not Given Famotidine (Pepcid) 20 mg PO BID [facility] Last Admin: 09/21/18 07:19 Dose: 20 mg Hydrochlorothiazide (Hctz) 25 mg PO DAILY [facility] Last Admin: 09/21/18 07:21 Dose: 25 mg Sodium Chloride () 1,000 mls @ 75 mls/hr IV .[id number] [facility] Last Admin: 09/21/18 04:21 Dose: 75 mls/hr Tranexamic Acid 2,000 mg/ (Sodium Chloride) 120 mls @ 660 mls/hr IV X1 ONE Stop: 09/21/18 11:35 Insulin Human Lispro (Humalog Kwikpen (Bkc)) 0 unit SC ACHS [facility]; Protocol Last Admin: 09/21/18 06:44 Dose: 2 u Lisinopril (Zestril) 20 mg PO DAILY [facility] Last Admin: 09/21/18 07:20 Dose: 20 mg [facility] Last Admin: 09/21/18 07:22 Dose: Not Given Metoprolol Succinate (Toprol Xl (Beta Dionisio)) 100 mg PO BID [facility] Last Admin: 09/21/18 07:19 Dose: 100 mg Morphine Sulfate () 4 - 6 mg IV Q3H PRN PRN PRN Reason: Severe pain (7-10/10) Last Admin: 09/21/18 04:43 Dose: 4 mg Nutritional Formula (Lactose Free) (Glucerna Shake) 120 ml PO 4X/DAY [facility] Last Admin: 09/21/18 07:21 Dose: Not Given Ondansetron HCl (Zofran) 4 mg IV Q6H PRN PRN PRN Reason: NAUSEA/VOMITING Pyridoxine HCl (Vitamin B-6) 100 mg PO DAILY [facility] Last Admin: 09/21/18 07:22 Dose: Not Given Sodium Chloride () 5 - 15 ml IV UD PRN PRN Reason: SALINE FLUSH Last Admin: 09/21/18 04:22 Dose: 10 ml Temazepam (Restoril) 15 mg PO QHS PRN PRN PRN Reason: INSOMNIA Medical Necessity - Tobacco Use Smoking Status: Current every day smoker Tobacco Use: Cigarettes Assessment/Plan All Active Problems Left hip pain (Acute) 1. Left transcervical femoral neck fracture due to mechanical fall pain fairly well controlled. orthopedic surgery on board; for left hip arthroplasty today RCRI risk calclulator 3.9% 30 day risk of , PR or cardiac arrest patient is a Class I risk for surgery 2. Type 2 diabetes mellitus: on ISS. accuchecks ACHS 3. COPD: on Breo. Lungs are clear to auscultation and she was on room air. On a 4. Hypertension: On lisinopril and Cardizem. Is on metoprolol. 5. History of osteoporosis: Vitamin D 6. History of right foot drop: due to previous right femoral neck fracture. Stable DVT prophylaxis: Lovenox Code Visit Inpatient E&M: 94096 [facility] L[facility]
--- NOTE | 2018-09-21 11:39 | PN_ITS ---
Patient Problems: Active and Suspected Problems Left hip pain (Acute) Subjective: Patient seen and examined. She was admitted through the ED in the early hours of this morning after she fell at home and landed on her left hip was brought in due to severe pain in her left hip and inability to ambulate. She was found to have an impacted transcervical left femoral neck fracture. She has been managed for left hip fracture due to mechanical fall and is awaiting left hip hemiarthroplasty. Patient complains of pain and states is not well controlled. She denies any fever chills, palpitations chest pain, nausea vomiting or diarrhea. Review of systems otherwise negative. Labs and vitals reviewed. She is to go for surgery today. Vitals/I&O's: Vital Signs Temp Pulse Resp BP Pulse Ox 98.4 F 68 18 165/84 H 93 09/21/18 07:28 09/21/18 07:28 09/21/18 07:28 09/21/18 07:28 09/21/18 07:28 Oxygen Delivery Method Room Air Weight: 149 lb 8 oz Body Mass Index (BMI) 29.2 Intake and Output for Last 24 Hours 09/19/18 09/20/18 09/21/18 23:59 23:59 23:59 Intake Total 70 / 70 Output Total 525 / 525 Balance -455 / -455 General: Alert, Oriented x3, Cooperative, No apparent distress HEENT: Atraumatic, PERRLA, EOMI, Normocephalic Oral: Moist Mucosa Neck: Supple, No JVD, Negative Carotid Bruits Lungs: Clear to auscultation, Normal air movement, No rhonchi, No wheeze, No rales Cardiovascular: Regular rate, Regular Rhythm, Normal S1, Normal S2, No murmurs Abdomen: Bowel Sounds Present, Soft, Non Tender, Non-Distended, No Hepato- splenomegaly Extremities: No edema, Capillary Refill Less than 3 Seconds Skin: No rashes, No breakdown Musculoskeletal: - - Left leg slightly shortened with minimal external rotation. Lymphatic: No Cervical, Supraclavicular, or Inguinal Adenopathy Neurological: Cranial nerves II-XII grossly intact, Neuro grossly intact Psych/Mental Status: Normal Affect, Appropriate, Alert and oriented to time, place, person, mood and affect Laboratory Results 09/21/18 00:45: WBC 12.2 H, RBC 5.01, Hgb 13.9, Hct 41.9, MCV 83.6, MCH 27.7, MCHC 33.2, RDW 14.0, RDW Differential 42.1, Plt Count 334, MPV 9.4, Immature Gran % (Auto) 0.800, Neut % (Auto) 46.4 L, Lymph % (Auto) 29.0, Humphreys % (Auto) 22.9 H, Eos % (Auto) 0.7, Baso % (Auto) 0.2, Absolute Neuts (auto) 5.7, Absolute Lymphs (auto) 3.55, Total Counted Not Reportable, Differential Comment SCANNED, Diff Path Review August, Reactive Lymphocytes 2+ 09/21/18 00:45: Sodium 134 L, Potassium 3.7, Chloride 97 L, Carbon Dioxide 29.0, Anion Gap 8, BUN 18, Creatinine 0.88, Estim Creat Clear Calc 40.29, Est GFR (MDRD) Af Amer 81, Est GFR (MDRD) Non-Af 67, BUN/Creatinine Ratio 20.5 H, Glucose 124 H, Calcium 9.1 09/21/18 06:41: POC Glucose 181 H 09/21/18 09:18: Hemoglobin A1c 7.1 H 09/21/18 09:18: Blood Type A POSITIVE, Antibody Screen NEGATIVE Diagnostic Data Hip/Pelvis X-Ray 09/21/18 00:23 IMPRESSION: 1. Impacted transcervical left femoral neck fracture 2. Mild to moderate bilateral hip and sacroiliac joint osteoarthritic change. Electronically Signed: Nick Hammonds MD at 2:50 EDT Tel , Service support , Chest X-Ray 09/21/18 04:10 IMPRESSION: Lungs are clear. Possible partially calcified right lower lobe nodule. Recommend chest CT to further evaluate Electronically Signed: Manolo Meneses DO at 9:03 EDT Tel , Service support , Current Medications Acetaminophen (Tylenol) 650 mg PO Q6H PRN PRN PRN Reason: Mild Pain (1-3)/Temp > 100.7 F Albuterol Sulfate (Ventolin Aerosols) 2.5 mg INHALATION Q2H PRN PRN PRN Reason: DYSPNEA Budesonide (Pulmicort Aerosol) 0.5 mg INHALATION BID.RT [facility] Last Admin: 09/21/18 07:00 Dose: 0.5 mg Calcium Carbonate (Tums) 500 mg PO BIDCM [facility] Last Admin: 09/21/18 07:22 Dose: Not Given Cholecalciferol (Vitamin D) 2,000 unit PO DAILY [facility] Last Admin: 09/21/18 07:22 Dose: Not Given Diltiazem HCl (Cardizem Cd) 180 mg PO DAILY [facility] Last Admin: 09/21/18 07:25 Dose: 180 mg Docusate Sodium (Colace) 200 mg PO DAILY [facility] Last Admin: 09/21/18 07:21 Dose: Not Given Enoxaparin Sodium (Lovenox) 40 mg SC DAILY@1000 [facility] Last Admin: 09/21/18 07:21 Dose: Not Given Famotidine (Pepcid) 20 mg PO BID [facility] Last Admin: 09/21/18 07:19 Dose: 20 mg Hydrochlorothiazide (Hctz) 25 mg PO DAILY [facility] Last Admin: 09/21/18 07:21 Dose: 25 mg Sodium Chloride () 1,000 mls @ 75 mls/hr IV .[id number] [facility] Last Admin: 09/21/18 04:21 Dose: 75 mls/hr Tranexamic Acid 2,000 mg/ (Sodium Chloride) 120 mls @ 660 mls/hr IV X1 ONE Stop: 09/21/18 11:35 Insulin Human Lispro (Humalog Kwikpen (Bkc)) 0 unit SC ACHS [facility]; Protocol Last Admin: 09/21/18 06:44 Dose: 2 u Lisinopril (Zestril) 20 mg PO DAILY [facility] Last Admin: 09/21/18 07:20 Dose: 20 mg Metformin HCl (Glucophage) [facility] Last Admin: 09/21/18 07:22 Dose: Not Given Metoprolol Succinate (Toprol Xl (Beta Dionisio)) 100 mg PO BID [facility] Last Admin: 09/21/18 07:19 Dose: 100 mg Morphine Sulfate () 4 - 6 mg IV Q3H PRN PRN PRN Reason: Severe pain (7-10/10) Last Admin: 09/21/18 04:43 Dose: 4 mg Nutritional Formula (Lactose Free) (Glucerna Shake) 120 ml PO 4X/DAY [facility] Last Admin: 09/21/18 07:21 Dose: Not Given Ondansetron HCl (Zofran) 4 mg IV Q6H PRN PRN PRN Reason: NAUSEA/VOMITING Pyridoxine HCl (Vitamin B-6) 100 mg PO DAILY [facility] Last Admin: 09/21/18 07:22 Dose: Not Given Sodium Chloride () 5 - 15 ml IV UD PRN PRN Reason: SALINE FLUSH Last Admin: 09/21/18 04:22 Dose: 10 ml Temazepam (Restoril) 15 mg PO QHS PRN PRN PRN Reason: INSOMNIA Medical Necessity - Tobacco Use Smoking Status: Current every day smoker Tobacco Use: Cigarettes Assessment/Plan All Active Problems Left hip pain (Acute) 1. Left transcervical femoral neck fracture due to mechanical fall * pain fairly well controlled. * orthopedic surgery on board; for left hip arthroplasty today * RCRI risk calclulator 3.9% 30 day risk of , [place] or cardiac arrest * patient is a Class I risk for surgery * 2. Type 2 diabetes mellitus: on ISS. accuchecks ACHS 3. COPD: on Breo. Lungs are clear to auscultation and she was on room air. On a 4. Hypertension: On lisinopril and Cardizem. Is on metoprolol. 5. History of osteoporosis: Vitamin D 6. History of right foot drop: due to previous right femoral neck fracture. Stable DVT prophylaxis: Lovenox Code Visit Inpatient E&M: 15479 [facility] Hosp L3
[2018-09-21 12:16] LABS: Pathologist Review Reviewed
--- NOTE | 2018-09-21 12:48 | OP.PCM_ITS ---
Report of Operation Date of Procedure: 09/21/18 Pre-Operative Diagnosis: Left hip displaced subcapital femoral neck fracture Post-Operative Diagnosis: Left hip displaced subcapital femoral neck fracture Surgery/Procedure Performed:: Left hip cemented hemiarthroplasty Description of Surgical Findings:: Stable hip equal leg lengths orthotics prosthetics assistant: Koffi Aguirre Type of Anesthesia:: Spinal Anesthesiologist: Bruce Laboy Special Medications: 2 g Ancef, 2 g TXA lavage at completion of case, joint cocktail (5 mg Duramorph, 30 mL of 0.5% Ropivicaine, 1000 units of epinephrine, 30 mg of Toradol) Specimen's removed: Femoral head Estimated Blood Loss (mL): 150 Fluids Replaced: 700 mL crystalloid Description of Procedure: Components used: 1. Dory Accolade C size 3 cemented stem 2. Irving Unitrax cobalt-chromium 47 mm femoral head with -4 mm inner sleeve Brief history operative indications: 73-year-old female who fell with displaced subcapital left femoral neck fracture. Risks and benefits of the procedure were discussed the patient including gone to blood loss, DVTs, PEs, neurovascular damage, infection, the risk of anesthesia. We elected to proceed with a hemiarthroplasty based on patient's health age and fracture pattern. Procedure: On the date of procedure the patient's L hip was marked in the preoperative area. Patient was then taken back to the operating room where anesthesia assumed control of the C-spine and airway and administered anesthetic. Patient was transferred to the operating table and placed in the supine position. The hips were placed the break of the bed and a bump was placed in the sacrum. The L lower extremity was then prepped out in a sterile fashion using chlorhexidine while the surgeon scrubbed. Upon reentering the room the L lower extremity was draped in the standard orthopedic fashion and the incision was marked. A timeout was called and everyone agreed upon the side, the site, the procedure be performed, antibody given, and patient's identity. At this time incision was made through skin, subcutaneous tissue, and fat down to fascia. The fascia was then incised and the TFL was retracted laterally. A retractor was placed on the lateral border of the femoral neck. Attention was directed to the inferior portion of the approach and all crossing vessels were identified and appropriately coagulated. A retractor was then placed on the medial portion of the femoral neck. The anterior capsule was then cleared of all soft tissue and then H shaped capsulotomy was made. The retractors were then placed inside the capsule. The femoral neck was identified and a cleanup cut was made. At this time a power corkscrew was used to remove the femoral head. The femoral head was measures and a 47 mm bipolar component was selected. Soft tissue releases on the medial and lateral femoral neck were appropriately done, the leg was externally rotated and lateralized. A Anguiano retractor was placed medially and proximally to the greater trochanter this allowed appropriate visualization and exposure of the femoral canal. Rongeour was then used to remove excess lateral bone. A canal finder and entry broach were used to open the proximal canal. Once we verified we were down the femoral canal we subsequently broached up to a size 3 femur. The appropriate neck was placed in the previously selected head was trialed with a -4mm neck. Traction was pulled and the hip was reduced with internal rotation. Once it was appropriately reduced and stability was checked. There was minimal shuck, equal leg lengths and appropriate stability with hyperextension and external rotation as well as with 90? flexion and internal rotation. The trial components were then dislocated the proximal femur was again exposed and the components were removed from the wound. The final components were verified and opened. The wound was copiously irrigated out with normal saline and bone was prepped for cement. The acetabulum was checked for any residual debris. The final components were cemented into place and cement was allowed to cure and femoral head was again trialed and -4 femoral head was selected. Trunnion was cleaned and impacted in place. Traction and internal rotation were again used to reduce the hip. After adequate reduction the hip remained stable with appropriate leg lengths. The wound was then copiously irrigated with normal saline once more, and hemostasis was obtained. Closure was then done using #1 Vicryl runner to close the fascia. A 2-0 Vicryl runner was used to close the subcutaneous skin. A 3-0 Monocryl and Steri-Strips were used for final skin closure. A Silverlon dressing was placed. Patient was awakened by anesthesia and transferred to the [facility]. Patient was then transferred to the PACU for recovery. Postoperative plan: Patient will get 24 hours postop antibiotics. Patient will get in-house physical therapy and will be weight-bear as tolerated. Patient will follow up in office in 2 weeks for a wound check and x-rays. Grafts/Implants Used: Irving - Complications None - Admit VTE Documentation VTE Present on Admission: No VTE Mechan Device Prophylaxis: Thigh High ANJALI Hose VTE Pharm Prophylaxis ordered?: Yes
--- NOTE | 2018-09-21 12:50 | RAD_ITS ---
STUDY: X-RAY - PELVIS AND LEFT HIP REASON FOR EXAM: Female, 73 years old. Postop left hip. TECHNIQUE: 2 views of the pelvis and hip. COMPARISON: AP pelvis and additional views of the right hip are 0123 hours. FINDINGS: There is a non-specific bowel gas pattern. Vascular calcifications in the pelvic soft tissues are less conspicuous today, but calcific plaquing in the superficial femoral arteries better visualize the mid thighs. Normal visualized bilateral iliac wings and sacrum. Early degenerative changes of the sacroiliac joints may be present. Normal bilateral superior and inferior pubic rami. Normal pubic symphysis. Normal bilateral ischial tuberosities. Minor narrowing of the radiocarpal joint space again noted. The patient has undergone left total hip arthroplasty. Following resection of the femoral head and neck, metal bipolar hip prosthesis was placed. Radiopaque cement surrounds the stem of the femoral prosthesis. The acetabular and femoral components appear well seated, and in anatomic alignment. Gas lucencies in the tissues of the hip and upper thigh are consistent with recent surgery. There is no demonstrated acute fracture. RAD/HIP, UNI W/ Pelvis 2-3 Views IMPRESSION: Status post left total hip arthroplasty. Electronically Signed: Dipesh Estrada MD at 15:19 EDT , Service support ,
[2018-09-21 13:46] LABS: Bedside Glucose 146 mg/dL (70-110)
[2018-09-21] MEDS: Calcium Carbonate 500 MG Tablet PO (16:09)
[2018-09-21] MEDS: Ensure Surgery 237 ML LIQUID PO (16:09)
[2018-09-21] MEDS: metFORMIN HCl 500 MG Tablet 1000 MG PO (16:10)
[2018-09-21 16:20] LABS: Bedside Glucose 171 mg/dL (70-110)
[2018-09-21] MEDS: Cefazolin 1 GM/50 ML BAG IV (18:54)
[2018-09-21] MEDS: Glucerna Shake 120 ML LIQUID PO (21:34)
[2018-09-21 23:16] LABS: Bedside Glucose 146 mg/dL (70-110)
[2018-09-22] VITALS (14 sets, daily range): BP systolic 111–159; BP diastolic 49–87; PULSE 65–88; RESP 16–28; TEMP 37.2–38.5; O2SAT 2–97
--- NOTE | 2018-09-22 02:09 | NURSING ---
PT RESTLESS, KEEPS PULLING HER O2 OFF, CONFUSED AT TIMES, MOIST PRODUCTIVE COUGH, RESP 24-28, COARSE UPPER AIRWAY THAT W CLEAR W COUGH, CRACKLES IN THE BASES. PULSE OX WAS 100% ON 3LNC, DECREASED TO 2L, 96%. CALLED FOR A BREATHING TREATMENT
[2018-09-22] MEDS: Albuterol 2.5 MG/3 ML VIAL.NEB. INHALATION ×4 (02:40→18:54)
--- NOTE | 2018-09-22 02:45 | CPS ---
PRN aerosol treatment given. During tx pt taking oxygen off and swinging arms. This [employer]IV[employer]IST expressed to pt that it is important to keep oxygen on and that we can assist her putting it back on. 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 Nursing aware. Oxygen off at this time SPO2 92% on Room Air.
[2018-09-22] MEDS: Acetaminophen 325 MG Tablet 650 MG PO ×2 (03:04→11:50)
[2018-09-22] MEDS: Ondansetron 4 MG/2 ML Vial IV (03:10)
[2018-09-22] MEDS: Morphine 4 MG/ML Syringe IV (03:10)
[2018-09-22] MEDS: Cefazolin 1 GM/50 ML BAG IV (03:12)
--- NOTE | 2018-09-22 05:12 | RAD_ITS ---
STUDY: X-RAY CHEST REASON FOR EXAM: Female, 73 years old. Fever. Recent hip surgery. TECHNIQUE: Single AP portable view of the chest. COMPARISON: Comparison is made with prior study of September 21, 2018. FINDINGS: The lungs are clear and expanded. Stable calcified nodule in the lateral aspect of the right lower lobe. There is no demonstrated pleural abnormality. Normal size heart. Normal mediastinum and mercedes. Normal visualized pulmonary arteries. There is atherosclerotic calcification of the aortic arch with tortuosity. There are degenerative changes of the visualized thoracic spine. Normal visualized ribs, clavicles, and shoulders. There is no demonstrated abnormality of the visualized soft tissue structures of the upper abdomen. RAD/Chest 1 View (Portable) IMPRESSION: No acute abnormality is seen. There has been no change since prior examination. Electronically Signed: Jr Muñoz, at 10:02 EDT , Service support ,
[2018-09-22 06:21] LABS: Anion Gap 7 (5-15); BUN 13 mg/dL (7-18); BUN/Creat Ratio 17.7 RATIO (10-20); Calcium,Total 8.6 mg/dL (8.5-10.1); Chloride 99 mmol/L (98-107); Creatinine, Serum 0.74 mg/dL (0.55-1.02); EST Glomerular Filtration Rate 82 mL/min (>60); Est Glom Filt Rate - Afr Amer 99 mL/min (>60); Estimated Creatinine Clearance 35.45 ml/min; Glucose 140 mg/dL (74-106); Potassium 3.6 mmol/L (3.5-5.1); Sodium Level 131 mmol/L (136-145)
[2018-09-22 06:52] LABS: Absolute Lymphocyte Count 3.48 X10^3/ul (0.83-4.51); Absolute Neutrophil Count 10.9 X10^3/uL (2.0-7.7); Basophil# 0.02 X10^3/uL; Basophil% 0.1 % (0-1); Eosinophil# 0.04 X10^3/uL; Eosinophils% 0.2 % (0-5); Hemoglobin 12.2 g/dl (12.0-15.0); Lymphocyte # 3.48 X10^3/ul (4.0); Lymphocyte % 19.3 % (19-41); Mean Corpuscular Hgb 27.7 pg (27.0-32.0); Mean Corpuscular Volume 83.9 fL (81-99); Mean Platelet Vol. 9.5 fl (6.2-12.0); Monocyte% 19.4 % (0-10); Neutrophil # 10.94 X10^3/uL (2.7-7.7); Neutrophil % 60.7 % (47-70); Platelet Count 272 K/mm3 (150-450); RBC Distribution Width CV 13.8 % (11.6-14.6); RBC Distribution Width SD 42.4 fl (35.1-43.9); Red Blood Count 4.41 M/mm3 (4.2-5.4)
[2018-09-22 06:58] LABS: Differential Indicated SCAN CRITERIA MET; POSITIVE COUNT NO; POSITIVE DIFFERENTIAL YES; POSITIVE MORPHOLOGY YES
[2018-09-22] MEDS: Budesonide Respules 0.5 MG/2 ML AMPUL.NEB. INHALATION ×2 (07:24→18:54)
[2018-09-22 07:25] LABS: Reactive Lymphocyte 1+
[2018-09-22 08:41] LABS: Bacteria 0 SEEN /hpf (None Seen); Mucous, Urine 0 SEEN /hpf (<or=2+)
[2018-09-22 08:48] LABS: Color, Urine Yellow (Yellow); Glucose, Dipstick Normal (Normal); Ketone-Dipstick Negative (Negative); Leukocyte Esterase-Dipstick 500 /ul (Negative); Nitrite-Dipstick Negative (Negative); Occult Blood-Urine 50 /ul (Negative); Protein-Dipstick 30 mg/dl (Negative); Specific Gravity, Urine 1.015 (1.002-1.030); Urine Clarity Cloudy (Clear); Urine Urobilinogen 8 mg/dl (Normal)
[2018-09-22 08:50] LABS: Urine Bilirubin Dipstick 3 mg/dL (Negative)
[2018-09-22 08:51] LABS: Red Blood Cells-Urine 0-5 SEEN /hpf (0-5); Squamous Epithelial Cells - UA 0-5 SEEN /hpf (5-10); White Blood Cells 5-10 SEEN /hpf (0-5)
[2018-09-22] MEDS: Ensure Surgery 237 ML LIQUID PO (09:14)
[2018-09-22] MEDS: Calcium Carbonate 500 MG Tablet PO ×2 (09:15→17:41)
[2018-09-22] MEDS: metFORMIN HCl 500 MG Tablet 1000 MG PO ×2 (09:15→17:41)
[2018-09-22] MEDS: dilTIAZem CD 180 MG Capsule PO (09:16)
[2018-09-22] MEDS: Docusate Sodium 100 MG Capsule 200 MG PO (09:16)
--- NOTE | 2018-09-22 09:16 | PCM.PN.ORT ---
Patient Problems: Active and Suspected Problems Left hip pain (Acute) Subjective: The patient was sitting in bed upon examination. Patient denies any chest pain, shortness of breath, dizziness, lightheadedness, nausea or vomiting, or calf pain. Patient states her pain is very well controlled with regards to her left hip. Pain is controlled on medications. Nursing states she has had postoperative confusion. Respiratory is involved for treatments. Objective: Temperature 99.6, respiratory rate 20, blood pressure 114/49. Patient is able to plantarflex and dorsiflex actively left lower extremity. Sensation is intact to light touch to saphenous, sural, superficial and deep peroneal, and tibial distribution. Dressing is clean dry and intact. Negative Homans bilaterally, negative signs and symptoms of DVT. - Physical Exam General: Alert, Cooperative, No apparent distress Vital Signs Temp Pulse Resp BP Pulse Ox 99.6 F H 82 16 139/81 H 94 09/22/18 05:00 09/22/18 07:24 09/22/18 07:24 09/22/18 05:00 09/22/18 07:24 Oxygen Flow Rate (L/min) 2 Oxygen Delivery Method Nasal Cannula Weight: 67.812 kg Body Mass Index (BMI) 29.2 Finger Stick Blood Glucose 146 Intake and Output for Last 24 Hours 09/20/18 09/21/18 09/22/18 23:59 23:59 23:59 Intake Total 1564 / 1564 835 / 835 Output Total 1275 / 1275 475 / 475 Balance 289 / 289 360 / 360 Laboratory Tests Past 24 Hrs 09/21/18 09/21/18 09/21/18 00:45 09:18 09:18 WBC RBC Hgb Hct MCV MCH MCHC RDW RDW Differential Plt Count MPV Immature Gran % (Auto) Neut % (Auto) Lymph % (Auto) [place] % (Auto) Eos % (Auto) Baso % (Auto) Absolute Neuts (auto) Absolute Lymphs (auto) Total Counted Differential Comment Diff Path Review Reviewed Reactive Lymphocytes Sodium Potassium Chloride Carbon Dioxide Anion Gap BUN Creatinine Estim Creat Clear Calc Est GFR (MDRD) Af Amer Est GFR (MDRD) Non-Af BUN/Creatinine Ratio Glucose Hemoglobin A1c 7.1 H Calcium Urine Color Urine Clarity Urine pH Ur Specific G[place] Urine Protein Urine Glucose (UA) Urine Ketones Urine Occult Blood Urine Nitrite Urine Bilirubin Urine Urobilinogen Ur Leukocyte Esterase Urine RBC Urine WBC Ur Squamous Epith Cells Urine Bacteria Urine Mucus Blood Type A POSITIVE Antibody Screen NEGATIVE 09/22/18 09/22/18 09/22/18 05:20 05:20 06:00 WBC 18.0 H RBC 4.41 Hgb 12.2 Hct 37.0 MCV 83.9 MCH 27.7 MCHC 33.0 RDW 13.8 RDW Differential 42.4 Plt Count 272 MPV 9.5 Immature Gran % (Auto) 0.300 Neut % (Auto) 60.7 Lymph % (Auto) 19.3 [place] % (Auto) 19.4 H Eos % (Auto) 0.2 Baso % (Auto) 0.1 Absolute Neuts (auto) 10.9 H Absolute Lymphs (auto) 3.48 Total Counted Not Reportable Differential Comment Diff Path Review May foll Reactive Lymphocytes 1+ Sodium 131 L Potassium 3.6 Chloride 99 Carbon Dioxide 25.0 Anion Gap 7 BUN 13 Creatinine 0.74 Estim Creat Clear Calc 35.45 Est GFR (MDRD) Af Amer 99 Est GFR (MDRD) Non-Af 82 BUN/Creatinine Ratio 17.7 Glucose 140 H Hemoglobin A1c Calcium 8.6 Urine Color Yellow Urine Clarity Cloudy Urine pH 5.0 Ur Specific G[place]ay 1.015 Urine Protein 30 H Urine Glucose (UA) Normal Urine Ketones Negative Urine Occult Blood 50 H Urine Nitrite Negative Urine Bilirubin 3 H Urine Urobilinogen 8 H Ur Leukocyte Esterase 500 H Urine RBC 0-5 SEEN Urine WBC 5-10 SEEN Ur Squamous Epith Cells 0-5 SEEN Urine Bacteria 0 SEEN Urine Mucus 0 SEEN Blood Type Antibody Screen POC Glucose 09/21/18 09/21/18 09/21/18 22:47 16:04 13:41 POC Glucose 146 H 171 H 146 H Medical Necessity - Tobacco Use Smoking Status: Current every day smoker Tobacco Use: Cigarettes Assessment/Plan All Active Problems Left hip pain (Acute) 1. S/P left hip cemented hemiarthroplasty POD #1 2. Continue Pain Medications: Continue with Tylenol primarily for pain control, only use oxycodone for as needed breakthrough pain. 3. DVT Prophylaxis: Lovenox 4. PT/OT: Weightbearing as tolerated 5. H & H: 12.2/37.0, asymptomatic 6. Encouraged Incentive Spirometry 7. Continue postoperative medical management per medicine 8. Disposition: Case management involved for appropriate transfer when medically stable.
[2018-09-22] MEDS: Enoxaparin 40 MG/0.4 ML Syringe SC (09:20)
[2018-09-22] MEDS: Famotidine 20 MG Tablet PO ×2 (09:20→21:46)
[2018-09-22] MEDS: Lisinopril 20 MG Tablet PO (09:21)
[2018-09-22] MEDS: hydroCHLOROthiazide 25 MG Tablet PO (09:21)
[2018-09-22] MEDS: Glucerna Shake 120 ML LIQUID PO (09:22)
--- NOTE | 2018-09-22 10:12 | PCM.PN.HOSP ---
Patient Problems: Active and Suspected Problems Left hip pain (Acute) Subjective: Patient seen and examined. She is postop day 1 for left hemiarthroplasty due to displaced subcapital femoral neck fracture of the left hip. Patient states pain is well controlled. She denies any fever chills, palpitations, dizziness, chest pain, diarrhea vomiting. Review of systems otherwise negative. Labs and vitals reviewed. Vitals/I&O's: Vital Signs Temp Pulse Resp BP Pulse Ox 99.6 F H 87 16 114/49 L 94 09/22/18 05:00 09/22/18 09:35 09/22/18 07:24 09/22/18 09:35 09/22/18 07:24 Oxygen Flow Rate (L/min) 2 Oxygen Delivery Method Nasal Cannula Weight: 149 lb 7.998 oz Body Mass Index (BMI) 29.2 Finger Stick Blood Glucose 146 Intake and Output for Last 24 Hours 09/20/18 09/21/18 09/22/18 23:59 23:59 23:59 Intake Total 1564 / 1564 835 / 835 Output Total 1275 / 1275 475 / 475 Balance 289 / 289 360 / 360 General: Alert, Oriented x3, Cooperative, No apparent distress HEENT: Atraumatic, PERRLA, EOMI, Normocephalic Oral: Moist Mucosa Neck: Supple, No JVD, Negative Carotid Bruits Lungs: has diminished breath sounds bibasally, no wheeze or crackles. Few crackles auscultated bibasally. Cardiovascular: Regular rate, Regular Rhythm, Normal S1, Normal S2, No murmurs Abdomen: Bowel Sounds Present, Soft, Non Tender, Non-Distended, No Hepato-splenomegaly Extremities: No edema, Capillary Refill Less than 3 Seconds Skin: No rashes, No breakdown Musculoskeletal: - - left hip dressing intact Lymphatic: No Cervical, Supraclavicular, or Inguinal Adenopathy Neurological: Cranial nerves II-XII grossly intact, Neuro grossly intact Psych/Mental Status: Normal Affect, Appropriate, Alert and oriented to time, place, person, mood and affect Laboratory Results 09/21/18 00:45: Diff Path Review Reviewed 09/21/18 13:41: POC Glucose 146 H 09/21/18 16:04: POC Glucose 171 H 09/21/18 22:47: POC Glucose 146 H 09/22/18 05:20: WBC 18.0 H, RBC 4.41, Hgb 12.2, Hct 37.0, MCV 83.9, MCH 27.7, MCHC 33.0, RDW 13.8, RDW Differential 42.4, Plt Count 272, MPV 9.5, Immature Gran % (Auto) 0.300, Neut % (Auto) 60.7, Lymph % (Auto) 19.3, [place]ardo % (Auto) 19.4 H, Eos % (Auto) 0.2, Baso % (Auto) 0.1, Absolute Neuts (auto) 10.9 H, Absolute Lymphs (auto) 3.48, Total Counted Not Reportable, Differential Comment , Diff Path Review May foll, Reactive Lymphocytes 1+ 09/22/18 05:20: Sodium 131 L, Potassium 3.6, Chloride 99, Carbon Dioxide 25.0, Anion Gap 7, BUN 13, Creatinine 0.74, Estim Creat Clear Calc 35.45, Est GFR (MDRD) Af Amer 99, Est GFR (MDRD) Non-Af 82, BUN/Creatinine Ratio 17.7, Glucose 140 H, Calcium 8.6 09/22/18 06:00: Urine Color Yellow, Urine Clarity Cloudy, Urine pH 5.0, Ur Specific Frederica 1.015, Urine Protein 30 H, Urine Glucose (UA) Normal, Urine Ketones Negative, Urine Occult Blood 50 H, Urine Nitrite Negative, Urine Bilirubin 3 H, Urine Urobilinogen 8 H, Ur Leukocyte Esterase 500 H, Urine RBC 0-5 SEEN, Urine WBC 5-10 SEEN, Ur Squamous Epith Cells 0-5 SEEN, Urine Bacteria 0 SEEN, Urine Mucus 0 SEEN Current Medications Acetaminophen (Tylenol) 650 mg PO Q6H PRN PRN PRN Reason: Mild Pain (1-3)/Temp > 100.7 F Last Admin: 09/22/18 03:04 Dose: 650 mg Albuterol Sulfate (Ventolin Aerosols) 2.5 mg INHALATION Q2H PRN PRN PRN Reason: DYSPNEA Last Admin: 09/22/18 02:40 Dose: 2.5 mg Budesonide (Pulmicort Aerosol) 0.5 mg INHALATION BID.RT JYOTI Last Admin: 09/22/18 07:24 Dose: 0.5 mg Calcium Carbonate (Tums) 500 mg PO BIDCM JYOTI Last Admin: 09/22/18 09:15 Dose: 500 mg Cholecalciferol (Vitamin D) 2,000 unit PO DAILY [facility] Last Admin: 09/22/18 09:20 Dose: 2,000 unit Diltiazem HCl (Cardizem Cd) 180 mg PO DAILY [facility] Last Admin: 09/22/18 09:16 Dose: 180 mg Docusate Sodium (Colace) 200 mg PO DAILY [facility] Last Admin: 09/22/18 09:16 Dose: 200 mg Enoxaparin Sodium (Lovenox) 40 mg SC DAILY@1000 [facility] Last Admin: 09/22/18 09:20 Dose: 40 mg Enteral Nutritional Formula (Ensure Surgery) 237 ml PO TIDCM [facility] Last Admin: 09/22/18 09:14 Dose: 237 ml Famotidine (Pepcid) 20 mg PO BID [facility] Last Admin: 09/22/18 09:20 Dose: 20 mg Hydrochlorothiazide (Hctz) 25 mg PO DAILY [facility] Last Admin: 09/22/18 09:21 Dose: 25 mg Sodium Chloride () 1,000 mls @ 75 mls/hr IV .[id number] [facility] Last Admin: 09/21/18 04:21 Dose: 75 mls/hr Insulin Human Lispro (Humalog Kwikpen (Bkc)) 0 unit SC ACHS [facility]; Protocol Last Admin: 09/22/18 06:55 Dose: Not Given Lisinopril (Zestril) 20 mg PO DAILY [facility] Last Admin: 09/22/18 09:21 Dose: 20 mg Metformin HCl (Glucophage) [facility] Last Admin: 09/22/18 09:15 Dose: 1,000 mg Metoprolol Succinate (Toprol Xl (Beta Dionisio)) 100 mg PO BID [facility] Last Admin: 09/22/18 09:35 Dose: Not Given Morphine Sulfate () 4 - 6 mg IV Q3H PRN PRN PRN Reason: Severe pain (7-10/10) Last Admin: 09/22/18 03:10 Dose: 4 mg Nutritional Formula (Lactose Free) (Glucerna Shake) 120 ml PO 4X/DAY [facility] Last Admin: 09/22/18 09:22 Dose: 120 ml Ondansetron HCl (Zofran) 4 mg IV Q6H PRN PRN PRN Reason: NAUSEA/VOMITING Last Admin: 09/22/18 03:10 Dose: 4 mg Oxycodone HCl (Oxyir) 2.5 mg PO Q4H PRN PRN PRN Reason: MOD-SEVERE PAIN (4-10/10) Pyridoxine HCl (Vitamin B-6) 100 mg PO DAILY JYOTI Last Admin: 09/21/18 07:22 Dose: Not Given Sodium Chloride () 5 - 15 ml IV UD PRN PRN Reason: SALINE FLUSH Last Admin: 09/21/18 04:22 Dose: 10 ml Temazepam (Restoril) 15 mg PO QHS PRN PRN PRN Reason: INSOMNIA Medical Necessity - Tobacco Use Smoking Status: Current every day smoker Tobacco Use: Cigarettes Assessment/Plan All Active Problems Left hip pain (Acute) 1. Left transcervical femoral neck fracture due to mechanical fall s/p left hip hemiarthroplasty. Today is POD 1. pain is well controlled on Tylenol oxycodone and IV morphine for pain PT OT on board. 2. Type 2 diabetes mellitus: on ISS. accuchecks ACHS 3. COPD: on Breo. Has diminished breath sounds this morning with few crackles. This is likely due to postop atelectasis. Incentive spirometry. Chest physiotherapy. Breathing treatments 4. Hypertension: On lisinopril and Cardizem and metoprolol. 5. History of osteoporosis: Vitamin D 6. History of right foot drop: due to previous right femoral neck fracture. Stable DVT prophylaxis: Lovenox 40mg daily. To switch to eliquis tomorrow. Disposition: will need placement. Code Visit Inpatient E&M: 42343 Subs Hosp L2
--- NOTE | 2018-09-22 10:16 | PN_ITS ---
Patient Problems: Active and Suspected Problems Left hip pain (Acute) Subjective: Patient seen and examined. She is postop day 1 for left hemiarthroplasty due to displaced subcapital femoral neck fracture of the left hip. Patient states pain is well controlled. She denies any fever chills, palpitations, dizziness, chest pain, diarrhea vomiting. Review of systems otherwise negative. Labs and vitals reviewed. Vitals/I&O's: Vital Signs Temp Pulse Resp BP Pulse Ox 99.6 F H 87 16 114/49 L 94 09/22/18 05:00 09/22/18 09:35 09/22/18 07:24 09/22/18 09:35 09/22/18 07:24 Oxygen Flow Rate (L/min) 2 Oxygen Delivery Method Nasal Cannula Weight: 149 lb 7.998 oz Body Mass Index (BMI) 29.2 Finger Stick Blood Glucose 146 Intake and Output for Last 24 Hours 09/20/18 09/21/18 09/22/18 23:59 23:59 23:59 Intake Total 1564 / 1564 835 / 835 Output Total 1275 / 1275 475 / 475 Balance 289 / 289 360 / 360 General: Alert, Oriented x3, Cooperative, No apparent distress HEENT: Atraumatic, PERRLA, EOMI, Normocephalic Oral: Moist Mucosa Neck: Supple, No JVD, Negative Carotid Bruits Lungs: has diminished breath sounds bibasally, no wheeze or crackles. Few crackles auscultated bibasally. Cardiovascular: Regular rate, Regular Rhythm, Normal S1, Normal S2, No murmurs Abdomen: Bowel Sounds Present, Soft, Non Tender, Non-Distended, No Hepato- splenomegaly Extremities: No edema, Capillary Refill Less than 3 Seconds Skin: No rashes, No breakdown Musculoskeletal: - - left hip dressing intact Lymphatic: No Cervical, Supraclavicular, or Inguinal Adenopathy Neurological: Cranial nerves II-XII grossly intact, Neuro grossly intact Psych/Mental Status: Normal Affect, Appropriate, Alert and oriented to time, place, person, mood and affect Laboratory Results 09/21/18 00:45: Diff Path Review Reviewed 09/21/18 13:41: POC Glucose 146 H 09/21/18 16:04: POC Glucose 171 H 09/21/18 22:47: POC Glucose 146 H 09/22/18 05:20: WBC 18.0 H, RBC 4.41, Hgb 12.2, Hct 37.0, MCV 83.9, MCH 27.7, MCHC 33.0, RDW 13.8, RDW Differential 42.4, Plt Count 272, MPV 9.5, Immature Gran % (Auto) 0.300, Neut % (Auto) 60.7, Lymph % (Auto) 19.3, [place] % (Auto) 19.4 H, Eos % (Auto) 0.2, Baso % (Auto) 0.1, Absolute Neuts (auto) 10.9 H, Absolute Lymphs (auto) 3.48, Total Counted Not Reportable, Differential Comment , Diff Path Review May foll, Reactive Lymphocytes 1+ 09/22/18 05:20: Sodium 131 L, Potassium 3.6, Chloride 99, Carbon Dioxide 25.0, Anion Gap 7, BUN 13, Creatinine 0.74, Estim Creat Clear Calc 35.45, Est GFR (MDRD) Af Amer 99, Est GFR (MDRD) Non-Af 82, BUN/Creatinine Ratio 17.7, Glucose 140 H, Calcium 8.6 09/22/18 06:00: Urine Color Yellow, Urine Clarity Cloudy, Urine pH 5.0, Ur Specific [place] 1.015, Urine Protein 30 H, Urine Glucose (UA) Normal, Urine Ketones Negative, Urine Occult Blood 50 H, Urine Nitrite Negative, Urine Bilirubin 3 H, Urine Urobilinogen 8 H, Ur Leukocyte Esterase 500 H, Urine RBC 0- 5 SEEN, Urine WBC 5-10 SEEN, Ur Squamous Epith Cells 0-5 SEEN, Urine Bacteria 0 SEEN, Urine Mucus 0 SEEN Current Medications Acetaminophen (Tylenol) 650 mg PO Q6H PRN PRN PRN Reason: Mild Pain (1-3)/Temp > 100.7 F Last Admin: 09/22/18 03:04 Dose: 650 mg Albuterol Sulfate (Ventolin Aerosols) 2.5 mg INHALATION Q2H PRN PRN PRN Reason: DYSPNEA Last Admin: 09/22/18 02:40 Dose: 2.5 mg Budesonide (Pulmicort Aerosol) 0.5 mg INHALATION BID.RT JYOTI Last Admin: 09/22/18 07:24 Dose: 0.5 mg Calcium Carbonate (Tums) 500 mg PO BIDCM JYOTI Last Admin: 09/22/18 09:15 Dose: 500 mg Cholecalciferol (Vitamin D) 2,000 unit PO DAILY [facility] Last Admin: 09/22/18 09:20 Dose: 2,000 unit Diltiazem HCl (Cardizem Cd) 180 mg PO DAILY [facility] Last Admin: 09/22/18 09:16 Dose: 180 mg Docusate Sodium (Colace) 200 mg PO DAILY [facility] Last Admin: 09/22/18 09:16 Dose: 200 mg Enoxaparin Sodium (Lovenox) 40 mg SC DAILY@1000 [facility] Last Admin: 09/22/18 09:20 Dose: 40 mg Enteral Nutritional Formula (Ensure Surgery) 237 ml PO TIDCM [facility] Last Admin: 09/22/18 09:14 Dose: 237 ml Famotidine (Pepcid) 20 mg PO BID [facility] Last Admin: 09/22/18 09:20 Dose: 20 mg Hydrochlorothiazide (Hctz) 25 mg PO DAILY [facility] Last Admin: 09/22/18 09:21 Dose: 25 mg Sodium Chloride () 1,000 mls @ 75 mls/hr IV .[id number] [facility] Last Admin: 09/21/18 04:21 Dose: 75 mls/hr Insulin Human Lispro (Humalog Kwikpen (Bkc)) 0 unit SC ACHS [facility]; Protocol Last Admin: 09/22/18 06:55 Dose: Not Given Lisinopril (Zestril) 20 mg PO DAILY [facility] Last Admin: 09/22/18 09:21 Dose: 20 mg [facility] Last Admin: 09/22/18 09:15 Dose: 1,000 mg Metoprolol Succinate (Toprol Xl (Beta Dionisio)) 100 mg PO BID [facility] Last Admin: 09/22/18 09:35 Dose: Not Given Morphine Sulfate () 4 - 6 mg IV Q3H PRN PRN PRN Reason: Severe pain (7-10/10) Last Admin: 09/22/18 03:10 Dose: 4 mg Nutritional Formula (Lactose Free) (Glucerna Shake) 120 ml PO 4X/DAY [facility] Last Admin: 09/22/18 09:22 Dose: 120 ml Ondansetron HCl (Zofran) 4 mg IV Q6H PRN PRN PRN Reason: NAUSEA/VOMITING Last Admin: 09/22/18 03:10 Dose: 4 mg Oxycodone HCl (Oxyir) 2.5 mg PO Q4H PRN PRN PRN Reason: MOD-SEVERE PAIN (4-10/10) Pyridoxine HCl (Vitamin B-6) 100 mg PO DAILY JYOTI Last Admin: 09/21/18 07:22 Dose: Not Given Sodium Chloride () 5 - 15 ml IV UD PRN PRN Reason: SALINE FLUSH Last Admin: 09/21/18 04:22 Dose: 10 ml Temazepam (Restoril) 15 mg PO QHS PRN PRN PRN Reason: INSOMNIA Medical Necessity - Tobacco Use Smoking Status: Current every day smoker Tobacco Use: Cigarettes Assessment/Plan All Active Problems Left hip pain (Acute) 1. Left transcervical femoral neck fracture due to mechanical fall * s/p left hip hemiarthroplasty. Today is POD 1. * pain is well controlled * on Tylenol oxycodone and IV morphine for pain * PT OT on board. * * 2. Type 2 diabetes mellitus: on ISS. accuchecks ACHS 3. COPD: * on Breo. Has diminished breath sounds this morning with few crackles. * This is likely due to postop atelectasis. * Incentive spirometry. Chest physiotherapy. * Breathing treatments 4. Hypertension: On lisinopril and Cardizem and metoprolol. 5. History of osteoporosis: Vitamin D 6. History of right foot drop: due to previous right femoral neck fracture. Stable DVT prophylaxis: Lovenox 40mg daily. To switch to eliquis tomorrow. Disposition: will need placement. Code Visit Inpatient E&M: 19303 Subs Hosp L2
--- NOTE | 2018-09-22 10:50 | CASEMGMT ---
KITTY GUZMÁN Face to Face with patient for initial transition planning/care coordination assessment. KITTY GUZMÁN introduced self and role at [facility]. Patient lying in bed, alert and oriented, daughter at bedside. Patient willing to participate in assessment and is able to answer all questions appropriately. Care providers, pharmacy, and demographics verified. Patient wishes to discharge to SNF with [facility] as her first choice. KITTY GUZMÁN explained that LAY would review if [facility] is in network with her insurance, if not, LAY will provide list of in network facilities. Patient states she has no further needs or concerns at this time. LAY Serra updated with request for SNF. PCP: Ivon Specialists: None [facility]erred [facility]acy[facility] Insurance: [facility] Prescription Benefit: Yes Living Will/HPOA: Yes, daughter Lisandra Gerber LNOK: daughters Living Arrangements: Patient lives with family in 1 story home with 3 steps to enter the home. Transportation: family DME/HHC: Patient has cane, walker, and wheelchair. Patient denies HHC in past. Patient states she has been to [facility] previously. Disposition Plan: SNF pending PreCert Daniella NINO, RN, CM
[2018-09-22 11:40] LABS: Bedside Glucose 149 mg/dL (70-110)
[2018-09-22 11:46] LABS: Bedside Glucose 160 mg/dL (70-110)
[2018-09-22] MEDS: Insulin Lispro 100 UNIT/ML INSULN.PEN SC ×2 (11:51→21:44)
[2018-09-22] MEDS: Pyridoxine HCl 100 MG Tablet PO (11:52)
[2018-09-22 14:28] LABS: Pathologist Review Reviewed
[2018-09-22 16:10] LABS: Bedside Glucose 134 mg/dL (70-110)
--- NOTE | 2018-09-22 16:14 | CASEMGMT ---
Social Work Note LAY placed a call to [facility] and spoke with Leanna who confirms they are not in network with pt's insurance. SW met with pt, introduced self and role at [facility]. Pt is alert and orientated x3. SW informed pt that [facility] not in network with pt's insurance and that pt can go to [facility] but that it would be private pay. SW educated on on SNF in area that accept pt's insurance. Pt gave this worker permission to call her daughter Lisandra to ask about SNF and that Lisandra can decide on SNF for pt. SW educated pt on [facility] but that this worker isn't sure if they have a bed. Pt gave this worker permission to check with TCU regarding beds. SW placed a call to Leah with [facility]. Leah states it is unlikely pt would get approved for [facility] and that TCU doesn't have any beds. SW placed a call to pt's daughter Lisandra. SW updated Lisandra that [facility] is not in network with pt's insurance. Lisandra asked about [facility]. SW reviewed in network list of SNF and [facility] is not listed as in network facility. SW informed Lisandra that this worker can check with [facility] but it appears that they are not in network. LAY educated pt on SNF in area that take pt's insurance ([facility], [place] and [facility]). Lisandra states pt was at [facility] in the past and doesn't want pt to return there. LAY went over Medicare ratings with Lisandra. Lisandra agreeable to send referral to [facility] if [facility] is not in network with pt's insurance. LAY placed a call to [facility] and spoke with Tara. Tara confirms that they are not in network. LAY placed a call to Setphanie at [facility], left message informing her of referral and to submit for pre-cert if they are able to accept pt. LAY faxed referral to [facility]. Plan: [facility] pending acceptance and pre-cert Daniella Serra APPLICATION PACKAGER, TRAILER TECHNICIAN
[2018-09-22] MEDS: Metoprolol(XL)Succ 100 MG Tablet PO (21:46)
[2018-09-22 22:30] LABS: Bedside Glucose 198 mg/dL (70-110)
[2018-09-23] VITALS (12 sets, daily range): BP systolic 138–153; BP diastolic 64–93; PULSE 70–85; RESP 16–20; TEMP 37–38.1; O2SAT 92–97
[2018-09-23] MEDS: Acetaminophen 325 MG Tablet 650 MG PO ×2 (03:56→10:26)
[2018-09-23 05:38] LABS: Hematocrit 34.2 % (37-47); Hemoglobin 11.4 g/dl (12.0-15.0); Mean Corp Hgb Conc 33.3 g/gl (32-36); Mean Corpuscular Hgb 27.7 pg (27.0-32.0); Mean Platelet Vol. 9.2 fl (6.2-12.0); Platelet Count 248 K/mm3 (150-450); RBC Distribution Width CV 13.7 % (11.6-14.6); RBC Distribution Width SD 41.3 fl (35.1-43.9); Red Blood Count 4.12 M/mm3 (4.2-5.4); White Blood Count 22.7 K/mm3 (4.4-11.0)
[2018-09-23 05:54] LABS: Anion Gap 9 (5-15); BUN 13 mg/dL (7-18); BUN/Creat Ratio 20.2 RATIO (10-20); Calcium,Total 8.9 mg/dL (8.5-10.1); Chloride 95 mmol/L (98-107); Creatinine, Serum 0.64 mg/dL (0.55-1.02); EST Glomerular Filtration Rate 96 mL/min (>60); Est Glom Filt Rate - Afr Amer 116 mL/min (>60); Estimated Creatinine Clearance 35.45 ml/min; Glucose 158 mg/dL (74-106); Potassium 3.5 mmol/L (3.5-5.1); Sodium Level 131 mmol/L (136-145)
[2018-09-23 05:57] LABS: Differential Indicated MANUAL DIFF; POSITIVE COUNT NO; POSITIVE DIFFERENTIAL NO; POSITIVE MORPHOLOGY YES
[2018-09-23 06:08] LABS: Lymphocyte 11 % (19-41); Monocyte 17 % (0-10); Neutrophil-Band 1 % (0-5); Neutrophil-Segmented 71 % (47-70); Total Cells Counted 100 (MANUAL DIFF)
[2018-09-23] MEDS: Insulin Lispro 100 UNIT/ML INSULN.PEN SC ×2 (06:34→11:50)
--- NOTE | 2018-09-23 06:34 | PCM.PN.ORT ---
Patient Problems: Active and Suspected Problems Left hip pain (Acute) Subjective: Patient remains in stable condition. No acute events overnight. Patient was found to have no dressing over the wound this morning on nursing assessment. Dressing was unable to be found. No documentation of nursing removing dressing. She is breathing somewhat labored this morning with raspy air movements. She is laying flat in bed. She states the hip feels well with minimal pain. No excessive swelling. No chest pain. No calf pain. Her white count did jump to 22.7. Hemoglobin remained stable. Objective: Postoperative radiographs show stable well-placed left cemented hemiarthroplasty - Physical Exam General: Alert, Oriented x3, Cooperative Extremities: - - Left lower extremity: Dressing is clean dry and intact Sensations intact to light touch saphenous, sural, superficial peroneal, deep peroneal, and tibial distributions Motors intact EHL, DF, PF calves are soft and supple There is some mild lateral erythema appears more reactive than infectious in nature. No tenderness or unexpected swelling in the thigh. Vital Signs Temp Pulse Resp BP Pulse Ox 100.6 F H 84 20 H 152/93 H 93 09/23/18 03:52 09/23/18 03:52 09/23/18 03:52 09/23/18 03:52 09/23/18 03:52 Oxygen Flow Rate (L/min) 2 Oxygen Delivery Method Room Air Weight: 149 lb 7.998 oz Body Mass Index (BMI) 29.2 Finger Stick Blood Glucose 146 Intake and Output for Last 24 Hours 09/21/18 09/22/18 09/23/18 23:59 23:59 23:59 Intake Total 1564 / 1564 2235 / 2235 200 / 200 Output Total 1275 / 1275 1425 / 1425 Balance 289 / 289 810 / 810 200 / 200 Laboratory Tests Past 24 Hrs 09/22/18 09/22/18 09/23/18 05:20 06:00 05:10 WBC 18.0 H 22.7 H RBC 4.41 4.12 L Hgb 12.2 11.4 L Hct 37.0 34.2 L MCV 83.9 83.0 MCH 27.7 27.7 MCHC 33.0 33.3 RDW 13.8 13.7 RDW Differential 42.4 41.3 Plt Count 272 248 MPV 9.5 9.2 Immature Gran % (Auto) 0.300 Neut % (Auto) 60.7 Not Reportable Lymph % (Auto) 19.3 [place] % (Auto) 19.4 H Eos % (Auto) 0.2 Baso % (Auto) 0.1 Absolute Neuts (auto) 10.9 H Not Reportable Absolute Lymphs (auto) 3.48 Total Counted Not Reportable 100 Neutrophils % (Manual) 71 H Band Neutrophils % 1 Lymphocytes % (Manual) 11 L Monocytes % (Manual) 17 H Differential Comment Diff Path Review Reviewed May foll Reactive Lymphocytes 1+ Sodium Potassium Chloride Carbon Dioxide Anion Gap BUN Creatinine Estim Creat Clear Calc Est GFR (MDRD) Af Amer Est GFR (MDRD) Non-Af BUN/Creatinine Ratio Glucose Calcium Urine Color Yellow Urine Clarity Cloudy Urine pH 5.0 Ur Specific [place] 1.015 Urine Protein 30 H Urine Glucose (UA) Normal Urine Ketones Negative Urine Occult Blood 50 H Urine Nitrite Negative Urine Bilirubin 3 H Urine Urobilinogen 8 H Ur Leukocyte Esterase 500 H Urine RBC 0-5 SEEN Urine WBC 5-10 SEEN Ur Squamous Epith Cells 0-5 SEEN Urine Bacteria 0 SEEN Urine Mucus 0 SEEN 09/23/18 05:10 WBC RBC Hgb Hct MCV MCH MCHC RDW RDW Differential Plt Count MPV Immature Gran % (Auto) Neut % (Auto) Lymph % (Auto) [place] % (Auto) Eos % (Auto) Baso % (Auto) Absolute Neuts (auto) Absolute Lymphs (auto) Total Counted Neutrophils % (Manual) Band Neutrophils % Lymphocytes % (Manual) Monocytes % (Manual) Differential Comment Diff Path Review Reactive Lymphocytes Sodium 131 L Potassium 3.5 Chloride 95 L Carbon Dioxide 27.0 Anion Gap 9 BUN 13 Creatinine 0.64 Estim Creat Clear Calc 35.45 Est GFR (MDRD) Af Amer 116 Est GFR (MDRD) Non-Af 96 BUN/Creatinine Ratio 20.2 H Glucose 158 H Calcium 8.9 Urine Color Urine Clarity Urine pH Ur Specific [place] Urine Protein Urine Glucose (UA) Urine Ketones Urine Occult Blood Urine Nitrite Urine Bilirubin Urine Urobilinogen Ur Leukocyte Esterase Urine RBC Urine WBC Ur Squamous Epith Cells Urine Bacteria Urine Mucus POC Glucose 09/22/18 09/22/18 09/22/18 21:43 16:06 11:40 POC Glucose 198 H 134 H 160 H 09/22/18 06:44 POC Glucose 149 H Medical Necessity - Tobacco Use Smoking Status: Current every day smoker Tobacco Use: Cigarettes Assessment/Plan All Active Problems Left hip pain (Acute) Displaced left subcapital femoral neck fracture 1. S/P left hip cemented hemiarthroplasty POD #2 2. Continue Pain Medications: Continue with Tylenol primarily for pain control, only use oxycodone for as needed breakthrough pain. 3. DVT Prophylaxis: Lovenox 4. PT/OT: Weightbearing as tolerated 5. H & H: 11.4, asymptomatic 6. Encouraged Incentive Spirometry. Discussed incentive spirometer at length with the patient. Patient is breathing more labored. She was only able to obtain assisted to her goal incentive spirometry on deep inspiration. She is also becoming more labored in breathing. My concern is that the increased white blood cell count is related to pulmonary issues. The thigh and hip itself have no signs of infection. I explained the serious complications that can be associated with postoperative pneumonia in this setting with the patient including a possible admission to the ICU which could be life-threatening. 7. Continue postoperative medical management per medicine 8. Disposition: Case management involved for appropriate transfer when medically stable. At this time patient hip is following a adequate postoperative course. Please contact orthopedics for any further questions. Upon discharge patient should remain on Lovenox for DVT prophylaxis her decreased mobility puts her at increased risk for VTE. Follow-up in the office with Renato Conteh in 2 weeks. [facility] Office:
[2018-09-23 06:56] LABS: Bedside Glucose 162 mg/dL (70-110)
[2018-09-23] MEDS: Albuterol 2.5 MG/3 ML VIAL.NEB. INHALATION (07:21)
[2018-09-23] MEDS: Budesonide Respules 0.5 MG/2 ML AMPUL.NEB. INHALATION ×2 (07:21→19:20)
[2018-09-23] MEDS: oxyCODONE 5 MG Tablet 2.5 MG PO (08:48)
[2018-09-23] MEDS: metFORMIN HCl 500 MG Tablet 1000 MG PO ×2 (08:49→17:22)
[2018-09-23] MEDS: Calcium Carbonate 500 MG Tablet PO ×2 (08:50→17:22)
--- NOTE | 2018-09-23 09:40 | CASEMGMT ---
Social Work Note SW received message from Stephanie at [facility] stating she is able to accept pt and submitted for pre-cert. Plan: [facility] pending pre-cert Daniella Serra AIR DEFENSE ARTILLERY OFFICER, MACHINE SWEEPER BRUSH MAKER
[2018-09-23] MEDS: Ceftriaxone 1 GM/50 ML BAG IV (10:24)
[2018-09-23] MEDS: Famotidine 20 MG Tablet PO ×2 (10:25→21:15)
[2018-09-23] MEDS: Docusate Sodium 100 MG Capsule 200 MG PO (10:25)
[2018-09-23] MEDS: Enoxaparin 40 MG/0.4 ML Syringe SC (10:25)
[2018-09-23] MEDS: Metoprolol(XL)Succ 100 MG Tablet PO ×2 (10:25→21:15)
[2018-09-23] MEDS: Pyridoxine HCl 100 MG Tablet PO (10:25)
[2018-09-23] MEDS: dilTIAZem CD 180 MG Capsule PO (10:26)
[2018-09-23] MEDS: hydroCHLOROthiazide 25 MG Tablet PO (10:26)
[2018-09-23] MEDS: Lisinopril 20 MG Tablet PO (10:27)
--- NOTE | 2018-09-23 10:55 | CASEMGMT ---
Addendum entered by Daniella Serra 09/23/18 12:12: SW faxed updated clinicals to [facility]. Original Note: Social Work Note SW met with pt, updated her that this worker spoke with her daughter Lisandra yesterday and Lisandra suggested W. SW informed pt that this worker made referral to [facility] and they are able to accept pt pending pre-cert. SW explained to pt that if pre-cert isn't obtained today then pt will be at [facility] throughout the weekend as insurance doesn't work over the weekend. SW informed pt that this worker will update her daughter Lisandra. Pt states understanding. SW placed a call to pt's daughter Lisandra and updated her on pt's acceptance to [facility] pending pre-cert. SW explained to Lisandra that if pre-cert is not obtained today then pt will be at [facility] through weekend. SW informed Lisandra that if pre-cert is obtained today pt could potentially discharge today or over the weekend. Lisandra spent some time stating that she takes care of pt and has custody over a three year old and six year old and that it has been a lot to deal with and it can be frustrating. Lisandra states that she told both of her parents that she would never permanently place them in a snf. LAY reiterated that pt going to [facility] will be for short term rehabilitation. SW offered support to Lisandra. Plan: [facility] pending pre-cert Daniella Serra HOSPITALITY SPECIALIST, FUNDING ANALYST
[2018-09-23 11:20] LABS: Bedside Glucose 247 mg/dL (70-110)
[2018-09-23] MEDS: Ipratropium/Albuterol Sulfate 3 ML AMPUL.NEB INHALATION ×3 (11:56→19:20)
--- NOTE | 2018-09-23 14:30 | CASEMGMT ---
Social Work Note SW received message from Stephanie at [facility] stating she is still waiting for pre-cert. SW called Stephanie at [facility], left message, informing her this worker is leaving around 3:30pm today and if gets pre-cert to call main floor number. Main floor number provided. SW completed convalescent 7000 in [place], copy on pt's chart. Green sheet and transportation form on pt's chart in the event pre-cert is obtained. Plan: [facility] pending pre-cert Daniella Serra STEEL CRANE OPERATOR, CONTENT PUBLISHER
--- NOTE | 2018-09-23 16:03 | PCM.PN.HOSP ---
Patient Problems: Active and Suspected Problems Left hip pain (Acute) Subjective: Patient was having low-grade fever, T-max 100.6 Fahrenheit last night. No tachycardia. Patient further said she has history of UTI in the past; long time ago. She also has history of his smoking cigarettes and smokes half pack per day. History of COPD. Currently denies increased frequency, urgency or burning micturition. Has chronic urinary incontinence. Vitals/I&O's: Vital Signs Temp Pulse Resp BP Pulse Ox 98.6 F 70 18 138/70 H 95 09/23/18 15:49 09/23/18 15:49 09/23/18 15:49 09/23/18 15:49 09/23/18 15:49 Oxygen Flow Rate (L/min) 2 Oxygen Delivery Method Room Air Weight: 149 lb 7.998 oz Body Mass Index (BMI) 29.2 Finger Stick Blood Glucose 146 Intake and Output for Last 24 Hours 09/21/18 09/22/18 09/23/18 23:59 23:59 23:59 Intake Total 1564 / 1564 2235 / 2235 1125 / 1125 Output Total 1275 / 1275 1425 / 1425 Balance 289 / 289 810 / 810 1125 / 1125 General: Alert, Oriented x3, Cooperative HEENT: Atraumatic, PERRLA, EOMI, Normocephalic Neck: Supple, No JVD, Negative Carotid Bruits Lungs: No wheeze, No rales, Diminished, Rhonchi Cardiovascular: Regular rate, Regular Rhythm, Normal S1, Normal S2, No murmurs Abdomen: Bowel Sounds Present, Soft, Non Tender, Non-Distended Extremities: No edema, Capillary Refill Less than 3 Seconds Skin: No rashes, No breakdown Musculoskeletal: No Tenderness to Palpation of Joints or Extremities, Arthritic Changes Neurological: Cranial nerves II-XII grossly intact Psych/Mental Status: Normal Affect, Appropriate Laboratory Results 09/22/18 16:06: POC Glucose 134 H 09/22/18 21:43: POC Glucose 198 H 09/23/18 05:10: WBC 22.7 H, RBC 4.12 L, Hgb 11.4 L, Hct 34.2 L, MCV 83.0, MCH 27.7, MCHC 33.3, RDW 13.7, RDW Differential 41.3, Plt Count 248, MPV 9.2, Neut % (Auto) Not Reportable, Absolute Neuts (auto) Not Reportable, Total Counted 100, Neutrophils % (Manual) 71 H, Band Neutrophils % 1, Lymphocytes % (Manual) 11 L, Monocytes % (Manual) 17 H, Diff Path Review August09/23/18 05:10: Sodium 131 L, Potassium 3.5, Chloride 95 L, Carbon Dioxide 27.0, Anion Gap 9, BUN 13, Creatinine 0.64, Estim Creat Clear Calc 35.45, Est GFR (MDRD) Af Amer 116, Est GFR (MDRD) Non-Af 96, BUN/Creatinine Ratio 20.2 H, Glucose 158 H, Calcium 8.9 09/23/18 06:26: POC Glucose 162 H 09/23/18 11:15: POC Glucose 247 H Current Medications Acetaminophen (Tylenol) 650 mg PO Q6H PRN PRN PRN Reason: Mild Pain (1-3)/Temp > 100.7 F Last Admin: 09/23/18 10:26 Dose: 650 mg Albuterol Sulfate (Ventolin Aerosols) 2.5 mg INHALATION Q2H PRN PRN PRN Reason: SOB/WHEEZING Albuterol/Ipratropium (Duoneb) 3 ml INHALATION Q4HWA.RT [facility] Last Admin: 09/23/18 15:26 Dose: 3 ml Budesonide (Pulmicort Aerosol) 0.5 mg INHALATION BID.RT [facility] Last Admin: 09/23/18 07:21 Dose: 0.5 mg Calcium Carbonate (Tums) 500 mg PO BIDCM [facility] Last Admin: 09/23/18 08:50 Dose: 500 mg Cholecalciferol (Vitamin D) 2,000 unit PO DAILY [facility] Last Admin: 09/23/18 10:26 Dose: 2,000 unit Diltiazem HCl (Cardizem Cd) 180 mg PO DAILY [facility] Last Admin: 09/23/18 10:26 Dose: 180 mg Docusate Sodium (Colace) 200 mg PO DAILY [facility] Last Admin: 09/23/18 10:25 Dose: 200 mg Enoxaparin Sodium (Lovenox) 40 mg SC DAILY@1000 [facility] Last Admin: 09/23/18 10:25 Dose: 40 mg Enteral Nutritional Formula (Ensure Surgery) 237 ml PO TIDCM [facility] Last Admin: 09/23/18 11:52 Dose: Not Given Famotidine (Pepcid) 20 mg PO BID [facility] Last Admin: 09/23/18 10:25 Dose: 20 mg Hydrochlorothiazide (Hctz) 25 mg PO DAILY [facility] Last Admin: 09/23/18 10:26 Dose: 25 mg Ceftriaxone Sodium (Rocephin) 1 gm in 50 mls @ 100 mls/hr IV Q24 [facility] Last Admin: 09/23/18 10:24 Dose: 100 mls/hr Insulin Human Lispro (Humalog Kwikpen (Bkc)) 0 unit SC ACHS [facility]; Protocol Last Admin: 09/23/18 11:50 Dose: 4 u Lisinopril (Zestril) 20 mg PO DAILY [facility] Last Admin: 09/23/18 10:27 Dose: 20 mg [facility] Last Admin: 09/23/18 08:49 Dose: 1,000 mg Metoprolol Succinate (Toprol Xl (Beta Dionisio)) 100 mg PO BID [facility] Last Admin: 09/23/18 10:25 Dose: 100 mg Morphine Sulfate () 4 - 6 mg IV Q3H PRN PRN PRN Reason: Severe pain (7-10/10) Last Admin: 09/22/18 03:10 Dose: 4 mg Nicotine (Nicoderm Cq (Pbkc)) 14 mg TRANSDERM. DAILY [facility] Last Admin: 09/23/18 10:24 Dose: 14 mg Ondansetron HCl (Zofran) 4 mg IV Q6H PRN PRN PRN Reason: NAUSEA/VOMITING Last Admin: 09/22/18 03:10 Dose: 4 mg Oxycodone HCl (Oxyir) 2.5 mg PO Q4H PRN PRN PRN Reason: MOD-SEVERE PAIN (4-10/10) Last Admin: 09/23/18 08:48 Dose: 2.5 mg Pyridoxine HCl (Vitamin B-6) 100 mg PO DAILY [facility] Last Admin: 09/23/18 10:25 Dose: 100 mg Sodium Chloride () 5 - 15 ml IV UD PRN PRN Reason: SALINE FLUSH Last Admin: 09/21/18 04:22 Dose: 10 ml Temazepam (Restoril) 15 mg PO QHS PRN PRN PRN Reason: INSOMNIA Medical Necessity - Tobacco Use Smoking Status: Current every day smoker Tobacco Use: Cigarettes Assessment/Plan All Active Problems Left hip pain (Acute) This is a 73 old female was admitted after a fall on her left hip with resulting severe left hip pain and transcervical femoral neck fracture. 1. Left transcervical femoral neck fracture due to mechanical fall s/p left hip hemiarthroplasty. Today is POD 2. pain is well controlled on Tylenol oxycodone and IV morphine for pain PT OT on board. Surgical dressing is dry. 2. Low-grade fever, possible due to atelectasis or/UTI: UA is positive of pyuria, WBC 5-10 cells, RBC 0-5, nitrite negative. It may be asymptomatic bacteria. Urine culture is pending. Empirically started on IV ceftriaxone. Type 2 diabetes mellitus: on ISS. accuchecks ACHS 3. COPD: on Breo. Has diminished breath sounds with rhonchi. This is likely due to postop atelectasis. Incentive spirometry. Chest physiotherapy. Breathing treatments 4. Hypertension: On lisinopril and Cardizem and metoprolol. 5. History of osteoporosis: Vitamin D 6. History of right foot drop: due to previous right femoral neck fracture. Stable DVT prophylaxis: Lovenox 40mg daily. Code Visit Inpatient E&M: 34621 Subs Hosp L3
--- NOTE | 2018-09-23 16:10 | PN_ITS ---
Patient Problems: Active and Suspected Problems Left hip pain (Acute) Subjective: Patient was having low-grade fever, T-max 100.6 Fahrenheit last night. No tachycardia. Patient further said she has history of UTI in the past; long time ago. She also has history of his smoking cigarettes and smokes half pack per day. History of COPD. Currently denies increased frequency, urgency or burning micturition. Has chronic urinary incontinence. Vitals/I&O's: Vital Signs Temp Pulse Resp BP Pulse Ox 98.6 F 70 18 138/70 H 95 09/23/18 15:49 09/23/18 15:49 09/23/18 15:49 09/23/18 15:49 09/23/18 15:49 Oxygen Flow Rate (L/min) 2 Oxygen Delivery Method Room Air Weight: 149 lb 7.998 oz Body Mass Index (BMI) 29.2 Finger Stick Blood Glucose 146 Intake and Output for Last 24 Hours 09/21/18 09/22/18 09/23/18 23:59 23:59 23:59 Intake Total 1564 / 1564 2235 / 2235 1125 / 1125 Output Total 1275 / 1275 1425 / 1425 Balance 289 / 289 810 / 810 1125 / 1125 General: Alert, Oriented x3, Cooperative HEENT: Atraumatic, PERRLA, EOMI, Normocephalic Neck: Supple, No JVD, Negative Carotid Bruits Lungs: No wheeze, No rales, Diminished, Rhonchi Cardiovascular: Regular rate, Regular Rhythm, Normal S1, Normal S2, No murmurs Abdomen: Bowel Sounds Present, Soft, Non Tender, Non-Distended Extremities: No edema, Capillary Refill Less than 3 Seconds Skin: No rashes, No breakdown Musculoskeletal: No Tenderness to Palpation of Joints or Extremities, Arthritic Changes Neurological: Cranial nerves II-XII grossly intact Psych/Mental Status: Normal Affect, Appropriate Laboratory Results 09/22/18 16:06: POC Glucose 134 H 09/22/18 21:43: POC Glucose 198 H 09/23/18 05:10: WBC 22.7 H, RBC 4.12 L, Hgb 11.4 L, Hct 34.2 L, MCV 83.0, MCH 27.7, MCHC 33.3, RDW 13.7, RDW Differential 41.3, Plt Count 248, MPV 9.2, Neut % (Auto) Not Reportable, Absolute Neuts (auto) Not Reportable, Total Counted 100, Neutrophils % (Manual) 71 H, Band Neutrophils % 1, Lymphocytes % (Manual) 11 L, Monocytes % (Manual) 17 H, Diff Path Review August09/23/18 05:10: Sodium 131 L, Potassium 3.5, Chloride 95 L, Carbon Dioxide 27.0, Anion Gap 9, BUN 13, Creatinine 0.64, Estim Creat Clear Calc 35.45, Est GFR (MDRD) Af Amer 116, Est GFR (MDRD) Non-Af 96, BUN/Creatinine Ratio 20.2 H, Glucose 158 H, Calcium 8.9 09/23/18 06:26: POC Glucose 162 H 09/23/18 11:15: POC Glucose 247 H Current Medications Acetaminophen (Tylenol) 650 mg PO Q6H PRN PRN PRN Reason: Mild Pain (1-3)/Temp > 100.7 F Last Admin: 09/23/18 10:26 Dose: 650 mg Albuterol Sulfate (Ventolin Aerosols) 2.5 mg INHALATION Q2H PRN PRN PRN Reason: SOB/WHEEZING Albuterol/Ipratropium (Duoneb) 3 ml INHALATION Q4HWA.RT [facility] Last Admin: 09/23/18 15:26 Dose: 3 ml Budesonide (Pulmicort Aerosol) 0.5 mg INHALATION BID.RT [facility] Last Admin: 09/23/18 07:21 Dose: 0.5 mg Calcium Carbonate (Tums) 500 mg PO BIDCM [facility] Last Admin: 09/23/18 08:50 Dose: 500 mg Cholecalciferol (Vitamin D) 2,000 unit PO DAILY [facility] Last Admin: 09/23/18 10:26 Dose: 2,000 unit Diltiazem HCl (Cardizem Cd) 180 mg PO DAILY [facility] Last Admin: 09/23/18 10:26 Dose: 180 mg Docusate Sodium (Colace) 200 mg PO DAILY [facility] Last Admin: 09/23/18 10:25 Dose: 200 mg Enoxaparin Sodium (Lovenox) 40 mg SC DAILY@1000 [facility] Last Admin: 09/23/18 10:25 Dose: 40 mg Enteral Nutritional Formula (Ensure Surgery) 237 ml PO TIDCM [facility] Last Admin: 09/23/18 11:52 Dose: Not Given Famotidine (Pepcid) 20 mg PO BID [facility] Last Admin: 09/23/18 10:25 Dose: 20 mg Hydrochlorothiazide (Hctz) 25 mg PO DAILY [facility] Last Admin: 09/23/18 10:26 Dose: 25 mg Ceftriaxone Sodium (Rocephin) 1 gm in 50 mls @ 100 mls/hr IV Q24 [facility] Last Admin: 09/23/18 10:24 Dose: 100 mls/hr Insulin Human Lispro (Humalog Kwikpen (Bkc)) 0 unit SC ACHS [facility]; Protocol Last Admin: 09/23/18 11:50 Dose: 4 u Lisinopril (Zestril) 20 mg PO DAILY [facility] Last Admin: 09/23/18 10:27 Dose: 20 mg [facility] ([facility]) [facility] Last Admin: 09/23/18 08:49 Dose: 1,000 mg Metoprolol Succinate (Toprol Xl (Beta Dionisio)) 100 mg PO BID [facility] Last Admin: 09/23/18 10:25 Dose: 100 mg Morphine Sulfate () 4 - 6 mg IV Q3H PRN PRN PRN Reason: Severe pain (7-10/10) Last Admin: 09/22/18 03:10 Dose: 4 mg Nicotine (Nicoderm Cq (Pbkc)) 14 mg TRANSDERM. DAILY [facility] Last Admin: 09/23/18 10:24 Dose: 14 mg Ondansetron HCl (Zofran) 4 mg IV Q6H PRN PRN PRN Reason: NAUSEA/VOMITING Last Admin: 09/22/18 03:10 Dose: 4 mg Oxycodone HCl (Oxyir) 2.5 mg PO Q4H PRN PRN PRN Reason: MOD-SEVERE PAIN (4-10/10) Last Admin: 09/23/18 08:48 Dose: 2.5 mg Pyridoxine HCl (Vitamin B-6) 100 mg PO DAILY [facility] Last Admin: 09/23/18 10:25 Dose: 100 mg Sodium Chloride () 5 - 15 ml IV UD PRN PRN Reason: SALINE FLUSH Last Admin: 09/21/18 04:22 Dose: 10 ml Temazepam (Restoril) 15 mg PO QHS PRN PRN PRN Reason: INSOMNIA Medical Necessity - Tobacco Use Smoking Status: Current every day smoker Tobacco Use: Cigarettes Assessment/Plan All Active Problems Left hip pain (Acute) This is a 73 old female was admitted after a fall on her left hip with resulting severe left hip pain and transcervical femoral neck fracture. 1. Left transcervical femoral neck fracture due to mechanical fall * s/p left hip hemiarthroplasty. Today is POD 2. * pain is well controlled * on Tylenol oxycodone and IV morphine for pain * PT OT on board. * Surgical dressing is dry. 2. Low-grade fever, possible due to atelectasis or/UTI: UA is positive of pyuria, WBC 5-10 cells, RBC 0-5, nitrite negative. It may be asymptomatic bacteria. Urine culture is pending. Empirically started on IV ceftriaxone. Type 2 diabetes mellitus: on ISS. accuchecks ACHS 3. COPD: * on Breo. Has diminished breath sounds with rhonchi. * This is likely due to postop atelectasis. * Incentive spirometry. Chest physiotherapy. * Breathing treatments 4. Hypertension: On lisinopril and Cardizem and metoprolol. 5. History of osteoporosis: Vitamin D 6. History of right foot drop: due to previous right femoral neck fracture. Stable DVT prophylaxis: Lovenox 40mg daily. Code Visit Inpatient E&M: 14871 [facility] Hosp L3
[2018-09-23 17:26] LABS: Bedside Glucose 142 mg/dL (70-110)
[2018-09-23] MEDS: 0.9% NaCl Peripheral Flush Adult/Peds IV (21:16)
[2018-09-23 21:30] LABS: Bedside Glucose 148 mg/dL (70-110)
[2018-09-24] VITALS (10 sets, daily range): BP systolic 127–166; BP diastolic 46–66; PULSE 64–77; RESP 16–22; TEMP 36.8–37.6; O2SAT 92–99
[2018-09-24 06:50] LABS: Bedside Glucose 118 mg/dL (70-110)
[2018-09-24] MEDS: Ipratropium/Albuterol Sulfate 3 ML AMPUL.NEB INHALATION ×4 (06:59→18:59)
[2018-09-24] MEDS: Budesonide Respules 0.5 MG/2 ML AMPUL.NEB. INHALATION ×2 (06:59→18:59)
[2018-09-24 08:11] LABS: Absolute Neutrophil Count 9.5 X10^3/uL (2.0-7.7); Basophil# 0.01 X10^3/uL; Basophil% 0.1 % (0-1); Eosinophil# 0.03 X10^3/uL; Eosinophils% 0.2 % (0-5); Hematocrit 33.8 % (37-47); Hemoglobin 11.5 g/dl (12.0-15.0); Lymphocyte % 12.7 % (19-41); Mean Corpuscular Volume 82.2 fL (81-99); Mean Platelet Vol. 9.8 fl (6.2-12.0); Monocyte# 4.79 X10^3/uL; Neutrophil % 57.3 % (47-70); Platelet Count 262 K/mm3 (150-450); RBC Distribution Width CV 13.8 % (11.6-14.6); RBC Distribution Width SD 41.8 fl (35.1-43.9); Red Blood Count 4.11 M/mm3 (4.2-5.4); White Blood Count 16.5 K/mm3 (4.4-11.0)
[2018-09-24 08:12] LABS: Differential Indicated SCAN CRITERIA MET; POSITIVE COUNT NO; POSITIVE DIFFERENTIAL YES; POSITIVE MORPHOLOGY YES
[2018-09-24 08:20] LABS: Anion Gap 7 (5-15); BUN 15 mg/dL (7-18); BUN/Creat Ratio 27.2 RATIO (10-20); Calcium,Total 8.8 mg/dL (8.5-10.1); Chloride 91 mmol/L (98-107); Creatinine, Serum 0.55 mg/dL (0.55-1.02); EST Glomerular Filtration Rate 114 mL/min (>60); Est Glom Filt Rate - Afr Amer 138 mL/min (>60); Estimated Creatinine Clearance 35.45 ml/min; Glucose 119 mg/dL (74-106); Potassium 3.6 mmol/L (3.5-5.1); Sodium Level 124 mmol/L (136-145)
[2018-09-24 08:51] LABS: Differential Comment SCANNED
[2018-09-24] MEDS: Enoxaparin 40 MG/0.4 ML Syringe SC (09:29)
[2018-09-24] MEDS: dilTIAZem CD 180 MG Capsule PO (09:29)
[2018-09-24] MEDS: Metoprolol(XL)Succ 100 MG Tablet PO ×2 (09:29→22:31)
[2018-09-24] MEDS: hydroCHLOROthiazide 25 MG Tablet PO (09:29)
[2018-09-24] MEDS: metFORMIN HCl 500 MG Tablet 1000 MG PO ×2 (09:30→16:52)
[2018-09-24] MEDS: Pyridoxine HCl 100 MG Tablet PO (09:31)
[2018-09-24] MEDS: Famotidine 20 MG Tablet PO ×2 (09:31→22:31)
[2018-09-24] MEDS: Lisinopril 20 MG Tablet PO (09:31)
[2018-09-24] MEDS: Calcium Carbonate 500 MG Tablet PO ×2 (09:31→16:52)
[2018-09-24] MEDS: Docusate Sodium 100 MG Capsule 200 MG PO (09:31)
[2018-09-24] MEDS: Ceftriaxone 1 GM/50 ML BAG IV (10:51)
[2018-09-24] MEDS: 0.9% NaCl Peripheral Flush Adult/Peds IV (10:52)
--- NOTE | 2018-09-24 11:21 | CASEMGMT ---
LAY was asked to talk with the patient. LAY met with patient and she said she wants to go to TCU. LAY looked at LAY Espinoza's notes. Apparently SW spoke with patient's daughter as patient is confused. They wanted TCU, but TCU had no beds. The next choice was [facility]. [facility] accepted patient and started the pre-cert . LAY told patient above and that she will be going to [facility] as TCU had no beds and we are waiting on her insurance. Plan: [facility] pending insurance approval. Nicole MARROQUIN MSW
[2018-09-24] MEDS: Insulin Lispro 100 UNIT/ML INSULN.PEN SC ×2 (12:05→16:51)
[2018-09-24 12:36] LABS: Bedside Glucose 157 mg/dL (70-110)
--- NOTE | 2018-09-24 13:35 | PCM.PN.HOSP ---
Patient Problems: Active and Suspected Problems Left hip pain (Acute) Subjective: Patient did not had any fever or chills. Patient states she has cough for about 1 to 2 weeks and was given some antibiotic as an outpatient. He denies URI symptoms including rhinorrhea, sore throat or postnasal drip. She also has history of recurrent UTI; urine culture in April 2018, December 2017 and September 2017 shows E. coli. Vitals/I&O's: Vital Signs Temp Pulse Resp BP Pulse Ox 99.2 F H 67 18 166/66 H 99 09/24/18 09:24 09/24/18 11:31 09/24/18 11:31 09/24/18 09:24 09/24/18 09:24 Oxygen Flow Rate (L/min) 2 Oxygen Delivery Method Room Air Weight: 149 lb 7.998 oz Body Mass Index (BMI) 29.2 Finger Stick Blood Glucose 146 Intake and Output for Last 24 Hours 09/22/18 09/23/18 09/24/18 23:59 23:59 23:59 Intake Total 2235 / 2235 1125 / 1125 550 / 550 Output Total 1425 / 1425 Balance 810 / 810 1125 / 1125 550 / 550 General: Alert, Oriented x3, Cooperative HEENT: Atraumatic, PERRLA, EOMI, Normocephalic Neck: Supple, No JVD, Negative Carotid Bruits Lungs: Clear to auscultation, No rhonchi, No wheeze, No rales, Diminished Cardiovascular: Regular rate, Regular Rhythm, Normal S1, Normal S2, No murmurs Abdomen: Bowel Sounds Present, Soft, Non Tender, Non-Distended Extremities: No edema, Capillary Refill Less than 3 Seconds Skin: No rashes, No breakdown Musculoskeletal: No Tenderness to Palpation of Joints or Extremities Neurological: Cranial nerves II-XII grossly intact, Deep Tendon Reflexes 2+/4 and Symmetrical, Neuro grossly intact Psych/Mental Status: Normal Affect, Appropriate Laboratory Results 09/23/18 17:08: POC Glucose 142 H 09/23/18 21:13: POC Glucose 148 H 09/24/18 06:47: POC Glucose 118 H 09/24/18 07:36: WBC 16.5 H, RBC 4.11 L, Hgb 11.5 L, Hct 33.8 L, MCV 82.2, MCH 28.0, MCHC 34.0, RDW 13.8, RDW Differential 41.8, Plt Count 262, MPV 9.8, Immature Gran % (Auto) 0.700, Neut % (Auto) 57.3, Lymph % (Auto) 12.7 L, [place] % (Auto) 29.0 H, Eos % (Auto) 0.2, Baso % (Auto) 0.1, Absolute Neuts (auto) 9.5 H, Absolute Lymphs (auto) 2.10, Total Counted Not Reportable, Differential Comment SCANNED, Diff Path Review August foll 09/24/18 07:36: Sodium 124 L, Potassium 3.6, Chloride 91 L, Carbon Dioxide 26.0, Anion Gap 7, BUN 15, Creatinine 0.55, Estim Creat Clear Calc 35.45, Est GFR (MDRD) Af Amer 138, Est GFR (MDRD) Non-Af 114, BUN/Creatinine Ratio 27.2 H, Glucose 119 H, Calcium 8.8 09/24/18 12:02: POC Glucose 157 H Current Medications Acetaminophen (Tylenol) 650 mg PO Q6H PRN PRN PRN Reason: Mild Pain (1-3)/Temp > 100.7 F Last Admin: 09/23/18 10:26 Dose: 650 mg Albuterol Sulfate (Ventolin Aerosols) 2.5 mg INHALATION Q2H PRN PRN PRN Reason: SOB/WHEEZING Albuterol/Ipratropium (Duoneb) 3 ml INHALATION Q4HWA.RT [facility] Last Admin: 09/24/18 11:31 Dose: 3 ml Budesonide (Pulmicort Aerosol) 0.5 mg INHALATION BID.RT [facility] Last Admin: 09/24/18 06:59 Dose: 0.5 mg Calcium Carbonate ([facility]) [facility] Last Admin: 09/24/18 09:31 Dose: 500 mg Cholecalciferol (Vitamin D) 2,000 unit PO DAILY [facility] Last Admin: 09/24/18 09:31 Dose: 2,000 unit Diltiazem HCl (Cardizem Cd) 180 mg PO DAILY [facility] Last Admin: 09/24/18 09:29 Dose: 180 mg Docusate Sodium (Colace) 200 mg PO DAILY [facility] Last Admin: 09/24/18 09:31 Dose: 200 mg Enoxaparin Sodium (Lovenox) 40 mg SC DAILY@1000 [facility] Last Admin: 09/24/18 09:29 Dose: 40 mg Enteral Nutritional Formula (Ensure Surgery) 237 ml PO TIDCM [facility] Last Admin: 09/24/18 12:04 Dose: Not Given Famotidine (Pepcid) 20 mg PO BID [facility] Last Admin: 09/24/18 09:31 Dose: 20 mg Hydrochlorothiazide (Hctz) 25 mg PO DAILY [facility] Last Admin: 09/24/18 09:29 Dose: 25 mg Ceftriaxone Sodium (Rocephin) 1 gm in 50 mls @ 100 mls/hr IV Q24 [facility] Last Admin: 09/24/18 10:51 Dose: 100 mls/hr Insulin Human Lispro (Humalog Kwikpen (Bkc)) 0 unit SC ACHS [facility]; Protocol Last Admin: 09/24/18 12:05 Dose: 2 u Lisinopril (Zestril) 20 mg PO DAILY [facility] Last Admin: 09/24/18 09:31 Dose: 20 mg Metformin HCl (Glucophage) [facility] Last Admin: 09/24/18 09:30 Dose: 1,000 mg Metoprolol Succinate (Toprol Xl (Beta Dionisio)) 100 mg PO BID [facility] Last Admin: 09/24/18 09:29 Dose: 100 mg Morphine Sulfate () 4 - 6 mg IV Q3H PRN PRN PRN Reason: Severe pain (7-10/10) Last Admin: 09/22/18 03:10 Dose: 4 mg Nicotine (Nicoderm Cq (Pbkc)) 14 mg TRANSDERM. DAILY [facility] Last Admin: 09/24/18 09:30 Dose: Not Given Ondansetron HCl (Zofran) 4 mg IV Q6H PRN PRN PRN Reason: NAUSEA/VOMITING Last Admin: 09/22/18 03:10 Dose: 4 mg Oxycodone HCl (Oxyir) 2.5 mg PO Q4H PRN PRN PRN Reason: MOD-SEVERE PAIN (4-10/10) Last Admin: 09/23/18 08:48 Dose: 2.5 mg Pyridoxine HCl (Vitamin B-6) 100 mg PO DAILY [facility] Last Admin: 09/24/18 09:31 Dose: 100 mg Sodium Chloride () 5 - 15 ml IV UD PRN PRN Reason: SALINE FLUSH Last Admin: 09/24/18 10:52 Dose: 10 ml Temazepam (Restoril) 15 mg PO QHS PRN PRN PRN Reason: INSOMNIA Medical Necessity - Tobacco Use Smoking Status: Current every day smoker Tobacco Use: Cigarettes Assessment/Plan All Active Problems Left hip pain (Acute) This is a 73 old female was admitted after a fall on her left hip with resulting severe left hip pain and transcervical femoral neck fracture. 1. Left transcervical femoral neck fracture due to mechanical fall s/p left hip hemiarthroplasty. Today is POD 2. pain is well controlled on Tylenol oxycodone and IV morphine for pain PT OT on board. Surgical dressing is dry. 2. Low-grade fever, possible due to atelectasis or/UTI: UA is positive of pyuria, WBC 5-10 cells, RBC 0-5, nitrite negative. It may be asymptomatic bacteria. Urine culture is pending. Empirically started on IV ceftriaxone. She also has history of recurrent UTI; urine culture in April 2018, December 2017 and September 2017 shows E. coli. E. coli sensitive to ceftriaxone and previous urine cultures Type 2 diabetes mellitus: on ISS. accuchecks ACHS. Blood sugars are controlled 3. COPD: on Breo. Has diminished breath sounds with rhonchi. This is likely due to postop atelectasis. Incentive spirometry. Chest physiotherapy. Breathing treatments 4. Hypertension: On lisinopril and Cardizem and metoprolol. 5. History of osteoporosis: Vitamin D 6. History of right foot drop: due to previous right femoral neck fracture. Stable DVT prophylaxis: Lovenox 40mg daily. Clinical Impression(s) from Imaging Studies Hip/Pelvis X-Ray 09/21/18 00:23 IMPRESSION: 1. Impacted transcervical left femoral neck fracture 2. Mild to moderate bilateral hip and sacroiliac joint osteoarthritic change. Hip/Pelvis X-Ray 09/21/18 10:00 IMPRESSION: Status post left total hip arthroplasty. Electronically Signed: Dipesh Estrada MD at 14:54 EDT , Service support , Hip/Pelvis X-Ray 09/21/18 12:50 IMPRESSION: Status post left total hip arthroplasty. Chest X-Ray 09/22/18 05:12 IMPRESSION: No acute abnormality is seen. There has been no change since prior examination. Code Visit Inpatient E&M: 47725 Subs Hosp L3
--- NOTE | 2018-09-24 13:41 | PN_ITS ---
Patient Problems: Active and Suspected Problems Left hip pain (Acute) Subjective: Patient did not had any fever or chills. Patient states she has cough for about 1 to 2 weeks and was given some antibiotic as an outpatient. He denies URI symptoms including rhinorrhea, sore throat or postnasal drip. She also has history of recurrent UTI; urine culture in April 2018, December 2017 and September 2017 shows E. coli. Vitals/I&O's: Vital Signs Temp Pulse Resp BP Pulse Ox 99.2 F H 67 18 166/66 H 99 09/24/18 09:24 09/24/18 11:31 09/24/18 11:31 09/24/18 09:24 09/24/18 09:24 Oxygen Flow Rate (L/min) 2 Oxygen Delivery Method Room Air Weight: 149 lb 7.998 oz Body Mass Index (BMI) 29.2 Finger Stick Blood Glucose 146 Intake and Output for Last 24 Hours 09/22/18 09/23/18 09/24/18 23:59 23:59 23:59 Intake Total 2235 / 2235 1125 / 1125 550 / 550 Output Total 1425 / 1425 Balance 810 / 810 1125 / 1125 550 / 550 General: Alert, Oriented x3, Cooperative HEENT: Atraumatic, PERRLA, EOMI, Normocephalic Neck: Supple, No JVD, Negative Carotid Bruits Lungs: Clear to auscultation, No rhonchi, No wheeze, No rales, Diminished Cardiovascular: Regular rate, Regular Rhythm, Normal S1, Normal S2, No murmurs Abdomen: Bowel Sounds Present, Soft, Non Tender, Non-Distended Extremities: No edema, Capillary Refill Less than 3 Seconds Skin: No rashes, No breakdown Musculoskeletal: No Tenderness to Palpation of Joints or Extremities Neurological: Cranial nerves II-XII grossly intact, Deep Tendon Reflexes 2+/4 and Symmetrical, Neuro grossly intact Psych/Mental Status: Normal Affect, Appropriate Laboratory Results 09/23/18 17:08: POC Glucose 142 H 09/23/18 21:13: POC Glucose 148 H 09/24/18 06:47: POC Glucose 118 H 09/24/18 07:36: WBC 16.5 H, RBC 4.11 L, Hgb 11.5 L, Hct 33.8 L, MCV 82.2, MCH 28.0, MCHC 34.0, RDW 13.8, RDW Differential 41.8, Plt Count 262, MPV 9.8, Immature Gran % (Auto) 0.700, Neut % (Auto) 57.3, Lymph % (Auto) 12.7 L, [place] % (Auto) 29.0 H, Eos % (Auto) 0.2, Baso % (Auto) 0.1, Absolute Neuts (auto) 9.5 H, Absolute Lymphs (auto) 2.10, Total Counted Not Reportable, Differential Comment SCANNED, Diff Path Review August foll 09/24/18 07:36: Sodium 124 L, Potassium 3.6, Chloride 91 L, Carbon Dioxide 26.0, Anion Gap 7, BUN 15, Creatinine 0.55, Estim Creat Clear Calc 35.45, Est GFR (MDRD) Af Amer 138, Est GFR (MDRD) Non-Af 114, BUN/Creatinine Ratio 27.2 H, Glucose 119 H, Calcium 8.8 09/24/18 12:02: POC Glucose 157 H Current Medications Acetaminophen (Tylenol) 650 mg PO Q6H PRN PRN PRN Reason: Mild Pain (1-3)/Temp > 100.7 F Last Admin: 09/23/18 10:26 Dose: 650 mg Albuterol Sulfate (Ventolin Aerosols) 2.5 mg INHALATION Q2H PRN PRN PRN Reason: SOB/WHEEZING Albuterol/Ipratropium (Duoneb) 3 ml INHALATION Q4HWA.RT [facility] Last Admin: 09/24/18 11:31 Dose: 3 ml Budesonide (Pulmicort Aerosol) 0.5 mg INHALATION BID.RT [facility] Last Admin: 09/24/18 06:59 Dose: 0.5 mg Calcium Carbonate (Tums) [facility] Last Admin: 09/24/18 09:31 Dose: 500 mg Cholecalciferol (Vitamin D) 2,000 unit PO DAILY [facility] Last Admin: 09/24/18 09:31 Dose: 2,000 unit Diltiazem HCl (Cardizem Cd) 180 mg PO DAILY [facility] Last Admin: 09/24/18 09:29 Dose: 180 mg Docusate Sodium (Colace) 200 mg PO DAILY [facility] Last Admin: 09/24/18 09:31 Dose: 200 mg Enoxaparin Sodium (Lovenox) 40 mg SC DAILY@1000 [facility] Last Admin: 09/24/18 09:29 Dose: 40 mg Enteral Nutritional Formula (Ensure Surgery) 237 ml PO TIDCM [facility] Last Admin: 09/24/18 12:04 Dose: Not Given Famotidine (Pepcid) 20 mg PO BID [facility] Last Admin: 09/24/18 09:31 Dose: 20 mg Hydrochlorothiazide (Hctz) 25 mg PO DAILY [facility] Last Admin: 09/24/18 09:29 Dose: 25 mg Ceftriaxone Sodium (Rocephin) 1 gm in 50 mls @ 100 mls/hr IV Q24 [facility] Last Admin: 09/24/18 10:51 Dose: 100 mls/hr Insulin Human Lispro (Humalog Kwikpen (Bkc)) 0 unit SC ACHS [facility]; Protocol Last Admin: 09/24/18 12:05 Dose: 2 u Lisinopril (Zestril) 20 mg PO DAILY [facility] Last Admin: 09/24/18 09:31 Dose: 20 mg Metformin HCl (Glucophage) 1,[facility] Last Admin: 09/24/18 09:30 Dose: 1,000 mg Metoprolol Succinate (Toprol Xl (Beta Dionisio)) 100 mg PO BID [facility] Last Admin: 09/24/18 09:29 Dose: 100 mg Morphine Sulfate () 4 - 6 mg IV Q3H PRN PRN PRN Reason: Severe pain (7-10/10) Last Admin: 09/22/18 03:10 Dose: 4 mg Nicotine (Nicoderm Cq (Pbkc)) 14 mg TRANSDERM. DAILY [facility] Last Admin: 09/24/18 09:30 Dose: Not Given Ondansetron HCl (Zofran) 4 mg IV Q6H PRN PRN PRN Reason: NAUSEA/VOMITING Last Admin: 09/22/18 03:10 Dose: 4 mg Oxycodone HCl (Oxyir) 2.5 mg PO Q4H PRN PRN PRN Reason: MOD-SEVERE PAIN (4-10/10) Last Admin: 09/23/18 08:48 Dose: 2.5 mg Pyridoxine HCl (Vitamin B-6) 100 mg PO DAILY [facility] Last Admin: 09/24/18 09:31 Dose: 100 mg Sodium Chloride () 5 - 15 ml IV UD PRN PRN Reason: SALINE FLUSH Last Admin: 09/24/18 10:52 Dose: 10 ml Temazepam (Restoril) 15 mg PO QHS PRN PRN PRN Reason: INSOMNIA Medical Necessity - Tobacco Use Smoking Status: Current every day smoker Tobacco Use: Cigarettes Assessment/Plan All Active Problems Left hip pain (Acute) This is a 73 old female was admitted after a fall on her left hip with resulting severe left hip pain and transcervical femoral neck fracture. 1. Left transcervical femoral neck fracture due to mechanical fall * s/p left hip hemiarthroplasty. Today is POD 2. * pain is well controlled * on Tylenol oxycodone and IV morphine for pain * PT OT on board. * Surgical dressing is dry. 2. Low-grade fever, possible due to atelectasis or/UTI: UA is positive of pyuria, WBC 5-10 cells, RBC 0-5, nitrite negative. It may be asymptomatic bacteria. Urine culture is pending. Empirically started on IV ceftriaxone. She also has history of recurrent UTI; urine culture in April 2018, December 2017 and September 2017 shows E. coli. E. coli sensitive to ceftriaxone and previous urine cultures Type 2 diabetes mellitus: on ISS. accuchecks ACHS. Blood sugars are controlled 3. COPD: * on Breo. Has diminished breath sounds with rhonchi. * This is likely due to postop atelectasis. * Incentive spirometry. Chest physiotherapy. * Breathing treatments 4. Hypertension: On lisinopril and Cardizem and metoprolol. 5. History of osteoporosis: Vitamin D 6. History of right foot drop: due to previous right femoral neck fracture. Stable DVT prophylaxis: Lovenox 40mg daily. Clinical Impression(s) from Imaging Studies Hip/Pelvis X-Ray 09/21/18 00:23 IMPRESSION: 1. Impacted transcervical left femoral neck fracture 2. Mild to moderate bilateral hip and sacroiliac joint osteoarthritic change. Hip/Pelvis X-Ray 09/21/18 10:00 IMPRESSION: Status post left total hip arthroplasty. Electronically Signed: Dipesh Estrada MD at 14:54 EDT , Service support , Hip/Pelvis X-Ray 09/21/18 12:50 IMPRESSION: Status post left total hip arthroplasty. Chest X-Ray 09/22/18 05:12 IMPRESSION: No acute abnormality is seen. There has been no change since prior examination. Code Visit Inpatient E&M: 11768 [facility] Hosp L3
[2018-09-24 16:55] LABS: Bedside Glucose 150 mg/dL (70-110)
[2018-09-24 22:41] LABS: Bedside Glucose 149 mg/dL (70-110)
[2018-09-25] VITALS (10 sets, daily range): BP systolic 101–152; BP diastolic 54–75; PULSE 62–78; RESP 16–18; TEMP 36.4–37.2; O2SAT 95–99
[2018-09-25 06:51] LABS: Bedside Glucose 130 mg/dL (70-110)
[2018-09-25] MEDS: Budesonide Respules 0.5 MG/2 ML AMPUL.NEB. INHALATION ×2 (06:59→19:09)
[2018-09-25] MEDS: Ipratropium/Albuterol Sulfate 3 ML AMPUL.NEB INHALATION ×4 (06:59→19:08)
[2018-09-25] MEDS: Acetaminophen 325 MG Tablet 650 MG PO ×3 (07:32→22:41)
[2018-09-25] MEDS: Calcium Carbonate 500 MG Tablet PO ×2 (08:14→17:48)
[2018-09-25] MEDS: metFORMIN HCl 500 MG Tablet 1000 MG PO ×2 (08:14→17:48)
[2018-09-25 08:39] LABS: Absolute Lymphocyte Count 2.33 X10^3/ul (0.83-4.51); Absolute Neutrophil Count 7.2 X10^3/uL (2.0-7.7); Basophil# 0.01 X10^3/uL; Basophil% 0.1 % (0-1); Eosinophil# 0.03 X10^3/uL; Eosinophils% 0.2 % (0-5); Hematocrit 31.5 % (37-47); Hemoglobin 10.9 g/dl (12.0-15.0); Lymphocyte # 2.33 X10^3/ul (4.0); Lymphocyte % 17.7 % (19-41); Mean Corp Hgb Conc 34.6 g/gl (32-36); Mean Corpuscular Hgb 28.1 pg (27.0-32.0); Mean Corpuscular Volume 81.2 fL (81-99); Mean Platelet Vol. 9.8 fl (6.2-12.0); Monocyte# 3.51 X10^3/uL; Monocyte% 26.7 % (0-10); Neutrophil % 54.8 % (47-70); Platelet Count 305 K/mm3 (150-450); RBC Distribution Width CV 13.6 % (11.6-14.6); RBC Distribution Width SD 40.2 fl (35.1-43.9); Red Blood Count 3.88 M/mm3 (4.2-5.4); White Blood Count 13.1 K/mm3 (4.4-11.0)
[2018-09-25 08:42] LABS: Differential Indicated SCAN CRITERIA MET; POSITIVE COUNT NO; POSITIVE DIFFERENTIAL YES; POSITIVE MORPHOLOGY YES
[2018-09-25] MEDS: Metoprolol(XL)Succ 100 MG Tablet PO ×2 (08:58→22:41)
[2018-09-25] MEDS: Pyridoxine HCl 100 MG Tablet PO (08:59)
[2018-09-25] MEDS: Lisinopril 20 MG Tablet PO (08:59)
[2018-09-25 09:00] LABS: Differential Comment SCANNED
[2018-09-25] MEDS: Enoxaparin 40 MG/0.4 ML Syringe SC (09:00)
[2018-09-25] MEDS: Famotidine 20 MG Tablet PO ×2 (09:00→22:40)
[2018-09-25] MEDS: dilTIAZem CD 180 MG Capsule PO (09:01)
[2018-09-25] MEDS: hydroCHLOROthiazide 25 MG Tablet PO (09:01)
[2018-09-25] MEDS: 0.9% NaCl Peripheral Flush Adult/Peds IV (09:11)
[2018-09-25] MEDS: Ceftriaxone 1 GM/50 ML BAG IV (09:11)
[2018-09-25 09:13] LABS: Anion Gap 7 (5-15); BUN 14 mg/dL (7-18); BUN/Creat Ratio 29.9 RATIO (10-20); Calcium,Total 8.7 mg/dL (8.5-10.1); Chloride 91 mmol/L (98-107); Creatinine, Serum 0.47 mg/dL (0.55-1.02); EST Glomerular Filtration Rate 138 mL/min (>60); Est Glom Filt Rate - Afr Amer 167 mL/min (>60); Estimated Creatinine Clearance 35.45 ml/min; Glucose 113 mg/dL (74-106); Potassium 3.5 mmol/L (3.5-5.1); Sodium Level 126 mmol/L (136-145)
--- NOTE | 2018-09-25 12:59 | PCM.PN.HOSP ---
Patient Problems: Active and Suspected Problems Left hip pain (Acute) Subjective: Patient complain of loose bowel movement 2 times today. Patient has history of diarrhea once in 3 months and it persisted for about 2 to 3 days and his PCP advised Imodium. When asked about diagnosis of IBS-D she is not clear of that. She gets cramps/discomfort along with IBS D. She denies any recent outpatient antibiotic intake in the last 6 months. Initiated on ceftriaxone for UTI, empirically for pyuria and low-grade fever but discontinued today after urine culture is negative. Vitals/I&O's: Vital Signs Temp Pulse Resp BP Pulse Ox 99.0 F 74 18 138/65 H 96 09/25/18 08:17 09/25/18 10:43 09/25/18 10:43 09/25/18 08:58 09/25/18 08:17 Oxygen Flow Rate (L/min) 2 Oxygen Delivery Method Room Air Weight: 149 lb 7.998 oz Body Mass Index (BMI) 29.2 Finger Stick Blood Glucose 146 Intake and Output for Last 24 Hours 09/23/18 09/24/18 09/25/18 23:59 23:59 23:59 Intake Total 1125 / 1125 1180 / 1180 700 / 700 Output Total 300 / 300 Balance 1125 / 1125 1180 / 1180 400 / 400 General: Alert, Oriented x3, Cooperative HEENT: Atraumatic, PERRLA, EOMI, Normocephalic Neck: Supple, No JVD, Negative Carotid Bruits Lungs: Diminished, Rhonchi Cardiovascular: Regular rate, Regular Rhythm, Normal S1, Normal S2, No murmurs Abdomen: Bowel Sounds Present, Soft, Non Tender, Non-Distended Extremities: No edema, Capillary Refill Less than 3 Seconds Skin: No rashes, No breakdown Musculoskeletal: Arthritic Changes, Tenderness - Mild tenderness of operative left hip Neurological: Cranial nerves II-XII grossly intact, Deep Tendon Reflexes 2+/4 and Symmetrical, Neuro grossly intact Psych/Mental Status: Normal Affect, Appropriate Microbiology Past 72 Hours 09/23/18 Unknown Urine, Catheterized Urine Culture - Final Culture exhibits no growth. Laboratory Results 09/24/18 16:46: POC Glucose 150 H 09/24/18 22:29: POC Glucose 149 H 09/25/18 06:37: POC Glucose 130 H 09/25/18 07:58: WBC 13.1 H, RBC 3.88 L, Hgb 10.9 L, Hct 31.5 L, MCV 81.2, MCH 28.1, MCHC 34.6, RDW 13.6, RDW Differential 40.2, Plt Count 305, MPV 9.8, Immature Gran % (Auto) 0.500, Neut % (Auto) 54.8, Lymph % (Auto) 17.7 L, [place] % (Auto) 26.7 H, Eos % (Auto) 0.2, Baso % (Auto) 0.1, Absolute Neuts (auto) 7.2, Absolute Lymphs (auto) 2.33, Total Counted Not Reportable, Differential Comment SCANNED, Diff Path Review August foll 09/25/18 07:58: Sodium 126 L, Potassium 3.5, Chloride 91 L, Carbon Dioxide 28.0, Anion Gap 7, BUN 14, Creatinine 0.47 L, Estim Creat Clear Calc 35.45, Est GFR (MDRD) Af Amer 167, Est GFR (MDRD) Non-Af 138, BUN/Creatinine Ratio 29.9 H, Glucose 113 H, Calcium 8.7 Current Medications Acetaminophen (Tylenol) 650 mg PO Q6H PRN PRN PRN Reason: Mild Pain (1-3)/Temp > 100.7 F Last Admin: 09/25/18 07:32 Dose: 650 mg Albuterol Sulfate (Ventolin Aerosols) 2.5 mg INHALATION Q2H PRN PRN PRN Reason: SOB/WHEEZING Albuterol/Ipratropium (Duoneb) 3 ml INHALATION Q4HWA.RT [facility] Last Admin: 09/25/18 10:46 Dose: 3 ml Budesonide (Pulmicort Aerosol) 0.5 mg INHALATION BID.RT [facility] Last Admin: 09/25/18 06:59 Dose: 0.5 mg Calcium Carbonate (Tums) 500 mg PO BIDCM [facility] Last Admin: 09/25/18 08:14 Dose: 500 mg Cholecalciferol (Vitamin D) 2,000 unit PO DAILY [facility] Last Admin: 09/25/18 08:59 Dose: 2,000 unit Diltiazem HCl (Cardizem Cd) 180 mg PO DAILY [facility] Last Admin: 09/25/18 09:01 Dose: 180 mg Docusate Sodium (Colace) 200 mg PO DAILY [facility] Last Admin: 09/25/18 09:00 Dose: Not Given Enoxaparin Sodium (Lovenox) 40 mg SC DAILY@1000 [facility] Last Admin: 09/25/18 09:00 Dose: 40 mg Enteral Nutritional Formula (Ensure Surgery) 237 ml PO TIDCM [facility] Last Admin: 09/25/18 12:14 Dose: Not Given Famotidine (Pepcid) 20 mg PO BID [facility] Last Admin: 09/25/18 09:00 Dose: 20 mg Hydrochlorothiazide (Hctz) 25 mg PO DAILY [facility] Last Admin: 09/25/18 09:01 Dose: 25 mg Ceftriaxone Sodium (Rocephin) 1 gm in 50 mls @ 100 mls/hr IV Q24 [facility] Last Admin: 09/25/18 09:11 Dose: 100 mls/hr Insulin Human Lispro (Humalog Kwikpen (Bkc)) 0 unit SC ACHS [facility]; Protocol Last Admin: 09/25/18 12:13 Dose: Not Given Lisinopril (Zestril) 20 mg PO DAILY [facility] Last Admin: 09/25/18 08:59 Dose: 20 mg [facility] ([facility]) [facility] Last Admin: 09/25/18 08:14 Dose: 1,000 mg Metoprolol Succinate (Toprol Xl (Beta Dionisio)) 100 mg PO BID [facility] Last Admin: 09/25/18 08:58 Dose: 100 mg Morphine Sulfate () 4 - 6 mg IV Q3H PRN PRN PRN Reason: Severe pain (7-10/10) Last Admin: 09/22/18 03:10 Dose: 4 mg Nicotine (Nicoderm Cq (Pbkc)) 14 mg TRANSDERM. DAILY [facility] Last Admin: 09/25/18 08:59 Dose: 14 mg Ondansetron HCl (Zofran) 4 mg IV Q6H PRN PRN PRN Reason: NAUSEA/VOMITING Last Admin: 09/22/18 03:10 Dose: 4 mg Oxycodone HCl (Oxyir) 2.5 mg PO Q4H PRN PRN PRN Reason: MOD-SEVERE PAIN (4-10/10) Last Admin: 09/23/18 08:48 Dose: 2.5 mg Pyridoxine HCl (Vitamin B-6) 100 mg PO DAILY [facility] Last Admin: 09/25/18 08:59 Dose: 100 mg Sodium Chloride () 5 - 15 ml IV UD PRN PRN Reason: SALINE FLUSH Last Admin: 09/25/18 09:11 Dose: 10 ml Temazepam (Restoril) 15 mg PO QHS PRN PRN PRN Reason: INSOMNIA Medical Necessity - Tobacco Use Smoking Status: Current every day smoker Tobacco Use: Cigarettes Assessment/Plan All Active Problems Left hip pain (Acute) This is a 73 old female was admitted after a fall on her left hip with resulting severe left hip pain and transcervical femoral neck fracture. 1. Left transcervical femoral neck fracture due to mechanical fall s/p left hip hemiarthroplasty on 09/21 2018 pain is well controlled on Tylenol oxycodone and IV morphine for pain PT OT on board. Surgical dressing is dry. 2. Low-grade fever, possible due to atelectasis or possible viral bronchitis/COPD: UA is positive of pyuria, WBC 5-10 cells, RBC 0-5, nitrite negative. It may be asymptomatic bacteria. Urine culture shows no growth so therefore asymptomatic bacteriuria. UTI ruled out. Ceftriaxone discontinued although she got 3 doses of IV ceftriaxone. No fever for more than 48 hours. She also has history of recurrent UTI; urine culture in April 2018, December 2017 and September 2017 shows E. coli. E. coli sensitive to ceftriaxone and previous urine cultures. Type 2 diabetes mellitus: on ISS. accuchecks ACHS. Blood sugars are controlled 3. COPD: on Breo. Has diminished breath sounds with rhonchi. This is likely due to postop atelectasis. Incentive spirometry. Chest physiotherapy. Breathing treatments 4. Hypertension: On lisinopril and Cardizem and metoprolol. 5. History of osteoporosis: Vitamin D 6. History of right foot drop: due to previous right femoral neck fracture. Stable Diarrhea, chronic in nature most probably IBS?D: Stool for C. difficile ordered patient was on ceftriaxone which is discontinued. Treat symptomatic with Imodium if C. difficile is negative. DVT prophylaxis: Lovenox 40mg daily. Clinical Impression(s) from Imaging Studies Hip/Pelvis X-Ray 09/21/18 00:23 IMPRESSION: 1. Impacted transcervical left femoral neck fracture 2. Mild to moderate bilateral hip and sacroiliac joint osteoarthritic change. Hip/Pelvis X-Ray 09/21/18 10:00 IMPRESSION: Status post left total hip arthroplasty. Electronically Signed: Dipesh Estrada MD at 14:54 EDT , Service support , Hip/Pelvis X-Ray 09/21/18 12:50 IMPRESSION: Status post left total hip arthroplasty. Chest X-Ray 09/22/18 05:12 IMPRESSION: No acute abnormality is seen. There has been no change since prior examination. Code Visit Inpatient E&M: [id number] Subs Hosp L2
--- NOTE | 2018-09-25 13:06 | PN_ITS ---
Patient Problems: Active and Suspected Problems Left hip pain (Acute) Subjective: Patient complain of loose bowel movement 2 times today. Patient has history of diarrhea once in 3 months and it persisted for about 2 to 3 days and his PCP advised Imodium. When asked about diagnosis of IBS-D she is not clear of that. She gets cramps/discomfort along with IBS D. She denies any recent outpatient antibiotic intake in the last 6 months. Initiated on ceftriaxone for UTI, empirically for pyuria and low-grade fever but discontinued today after urine culture is negative. Vitals/I&O's: Vital Signs Temp Pulse Resp BP Pulse Ox 99.0 F 74 18 138/65 H 96 09/25/18 08:17 09/25/18 10:43 09/25/18 10:43 09/25/18 08:58 09/25/18 08:17 Oxygen Flow Rate (L/min) 2 Oxygen Delivery Method Room Air Weight: 149 lb 7.998 oz Body Mass Index (BMI) 29.2 Finger Stick Blood Glucose 146 Intake and Output for Last 24 Hours 09/23/18 09/24/18 09/25/18 23:59 23:59 23:59 Intake Total 1125 / 1125 1180 / 1180 700 / 700 Output Total 300 / 300 Balance 1125 / 1125 1180 / 1180 400 / 400 General: Alert, Oriented x3, Cooperative HEENT: Atraumatic, PERRLA, EOMI, Normocephalic Neck: Supple, No JVD, Negative Carotid Bruits Lungs: Diminished, Rhonchi Cardiovascular: Regular rate, Regular Rhythm, Normal S1, Normal S2, No murmurs Abdomen: Bowel Sounds Present, Soft, Non Tender, Non-Distended Extremities: No edema, Capillary Refill Less than 3 Seconds Skin: No rashes, No breakdown Musculoskeletal: Arthritic Changes, Tenderness - Mild tenderness of operative left hip Neurological: Cranial nerves II-XII grossly intact, Deep Tendon Reflexes 2+/4 and Symmetrical, Neuro grossly intact Psych/Mental Status: Normal Affect, Appropriate Microbiology Past 72 Hours 09/23/18 Unknown Urine, Catheterized Urine Culture - Final Culture exhibits no growth. Laboratory Results 09/24/18 16:46: POC Glucose 150 H 09/24/18 22:29: POC Glucose 149 H 09/25/18 06:37: POC Glucose 130 H 09/25/18 07:58: WBC 13.1 H, RBC 3.88 L, Hgb 10.9 L, Hct 31.5 L, MCV 81.2, MCH 28.1, MCHC 34.6, RDW 13.6, RDW Differential 40.2, Plt Count 305, MPV 9.8, Immature Gran % (Auto) 0.500, Neut % (Auto) 54.8, Lymph % (Auto) 17.7 L, [place] % (Auto) 26.7 H, Eos % (Auto) 0.2, Baso % (Auto) 0.1, Absolute Neuts (auto) 7.2, Absolute Lymphs (auto) 2.33, Total Counted Not Reportable, Differential Comment SCANNED, Diff Path Review August foll 09/25/18 07:58: Sodium 126 L, Potassium 3.5, Chloride 91 L, Carbon Dioxide 28.0, Anion Gap 7, BUN 14, Creatinine 0.47 L, Estim Creat Clear Calc 35.45, Est GFR (MDRD) Af Amer 167, Est GFR (MDRD) Non-Af 138, BUN/Creatinine Ratio 29.9 H, Glucose 113 H, Calcium 8.7 Current Medications Acetaminophen (Tylenol) 650 mg PO Q6H PRN PRN PRN Reason: Mild Pain (1-3)/Temp > 100.7 F Last Admin: 09/25/18 07:32 Dose: 650 mg Albuterol Sulfate (Ventolin Aerosols) 2.5 mg INHALATION Q2H PRN PRN PRN Reason: SOB/WHEEZING Albuterol/Ipratropium (Duoneb) 3 ml INHALATION Q4HWA.RT [facility] Last Admin: 09/25/18 10:46 Dose: 3 ml Budesonide (Pulmicort Aerosol) 0.5 mg INHALATION BID.RT [facility] Last Admin: 09/25/18 06:59 Dose: 0.5 mg Calcium Carbonate (Tums) 500 mg PO BIDCM [facility] Last Admin: 09/25/18 08:14 Dose: 500 mg Cholecalciferol (Vitamin D) 2,000 unit PO DAILY [facility] Last Admin: 09/25/18 08:59 Dose: 2,000 unit Diltiazem HCl (Cardizem Cd) 180 mg PO DAILY [facility] Last Admin: 09/25/18 09:01 Dose: 180 mg Docusate Sodium (Colace) 200 mg PO DAILY [facility] Last Admin: 09/25/18 09:00 Dose: Not Given Enoxaparin Sodium (Lovenox) 40 mg SC DAILY@1000 [facility] Last Admin: 09/25/18 09:00 Dose: 40 mg Enteral Nutritional Formula (Ensure Surgery) 237 ml PO TIDCM [facility] Last Admin: 09/25/18 12:14 Dose: Not Given Famotidine (Pepcid) 20 mg PO BID [facility] Last Admin: 09/25/18 09:00 Dose: 20 mg Hydrochlorothiazide (Hctz) 25 mg PO DAILY [facility] Last Admin: 09/25/18 09:01 Dose: 25 mg Ceftriaxone Sodium (Rocephin) 1 gm in 50 mls @ 100 mls/hr IV Q24 [facility] Last Admin: 09/25/18 09:11 Dose: 100 mls/hr Insulin Human Lispro (Humalog Kwikpen (Bkc)) 0 unit SC ACHS [facility]; Protocol Last Admin: 09/25/18 12:13 Dose: Not Given Lisinopril (Zestril) 20 mg PO DAILY [facility] Last Admin: 09/25/18 08:59 Dose: 20 mg [facility] ([facility]) [facility] Last Admin: 09/25/18 08:14 Dose: 1,000 mg Metoprolol Succinate (Toprol Xl (Beta Dionisio)) 100 mg PO BID [facility] Last Admin: 09/25/18 08:58 Dose: 100 mg Morphine Sulfate () 4 - 6 mg IV Q3H PRN PRN PRN Reason: Severe pain (7-10/10) Last Admin: 09/22/18 03:10 Dose: 4 mg Nicotine (Nicoderm Cq (Pbkc)) 14 mg TRANSDERM. DAILY [facility] Last Admin: 09/25/18 08:59 Dose: 14 mg Ondansetron HCl (Zofran) 4 mg IV Q6H PRN PRN PRN Reason: NAUSEA/VOMITING Last Admin: 09/22/18 03:10 Dose: 4 mg Oxycodone HCl (Oxyir) 2.5 mg PO Q4H PRN PRN PRN Reason: MOD-SEVERE PAIN (4-10/10) Last Admin: 09/23/18 08:48 Dose: 2.5 mg Pyridoxine HCl (Vitamin B-6) 100 mg PO DAILY [facility] Last Admin: 09/25/18 08:59 Dose: 100 mg Sodium Chloride () 5 - 15 ml IV UD PRN PRN Reason: SALINE FLUSH Last Admin: 09/25/18 09:11 Dose: 10 ml Temazepam (Restoril) 15 mg PO QHS PRN PRN PRN Reason: INSOMNIA Medical Necessity - Tobacco Use Smoking Status: Current every day smoker Tobacco Use: Cigarettes Assessment/Plan All Active Problems Left hip pain (Acute) This is a 73 old female was admitted after a fall on her left hip with resulting severe left hip pain and transcervical femoral neck fracture. 1. Left transcervical femoral neck fracture due to mechanical fall * s/p left hip hemiarthroplasty on 09/21 2018 * pain is well controlled * on Tylenol oxycodone and IV morphine for pain * PT OT on board. * Surgical dressing is dry. 2. Low-grade fever, possible due to atelectasis or possible viral bronchitis/COPD: UA is positive of pyuria, WBC 5-10 cells, RBC 0-5, nitrite negative. It may be asymptomatic bacteria. Urine culture shows no growth so therefore asymptomatic bacteriuria. UTI ruled out. Ceftriaxone discontinued although she got 3 doses of IV ceftriaxone. No fever for more than 48 hours. She also has history of recurrent UTI; urine culture in April 2018, December 2017 and September 2017 shows E. coli. E. coli sensitive to ceftriaxone and previous urine cultures. Type 2 diabetes mellitus: on ISS. accuchecks ACHS. Blood sugars are controlled 3. COPD: * on Breo. Has diminished breath sounds with rhonchi. * This is likely due to postop atelectasis. * Incentive spirometry. Chest physiotherapy. * Breathing treatments 4. Hypertension: On lisinopril and Cardizem and metoprolol. 5. History of osteoporosis: Vitamin D 6. History of right foot drop: due to previous right femoral neck fracture. Stable Diarrhea, chronic in nature most probably IBS?D: Stool for C. difficile ordered patient was on ceftriaxone which is discontinued. Treat symptomatic with Imodium if C. difficile is negative. DVT prophylaxis: Lovenox 40mg daily. Clinical Impression(s) from Imaging Studies Hip/Pelvis X-Ray 09/21/18 00:23 IMPRESSION: 1. Impacted transcervical left femoral neck fracture 2. Mild to moderate bilateral hip and sacroiliac joint osteoarthritic change. Hip/Pelvis X-Ray 09/21/18 10:00 IMPRESSION: Status post left total hip arthroplasty. Electronically Signed: Dipesh Estrada MD at 14:54 EDT , Service support , Hip/Pelvis X-Ray 09/21/18 12:50 IMPRESSION: Status post left total hip arthroplasty. Chest X-Ray 09/22/18 05:12 IMPRESSION: No acute abnormality is seen. There has been no change since prior examination. Code Visit Inpatient E&M: 39230 Subs Hosp L2
[2018-09-25 13:51] LABS: Bedside Glucose 108 mg/dL (70-110)
[2018-09-25 18:25] LABS: Bedside Glucose 139 mg/dL (70-110)
[2018-09-25 23:06] LABS: Bedside Glucose 147 mg/dL (70-110)
[2018-09-26 03:00] VITALS: BP 133/64; PULSE 64; RESP 18; TEMP 36.6; O2SAT 99
[2018-09-26] MEDS: Insulin Lispro 100 UNIT/ML INSULN.PEN SC ×2 (06:19→11:55)
[2018-09-26] MEDS: Acetaminophen 325 MG Tablet 650 MG PO (06:29)
[2018-09-26 06:51] VITALS: PULSE 74; RESP 16; O2SAT 97
[2018-09-26] MEDS: Ipratropium/Albuterol Sulfate 3 ML AMPUL.NEB INHALATION (06:51)
[2018-09-26] MEDS: Budesonide Respules 0.5 MG/2 ML AMPUL.NEB. INHALATION (06:55)
[2018-09-26 07:15] LABS: Bedside Glucose 156 mg/dL (70-110)
[2018-09-26 09:10] LABS: Pathologist Review Reviewed
--- NOTE | 2018-09-26 09:13 | CASEMGMT ---
Social Work Note SW faxed updated clinicals to [facility]. Plan: [facility] pending pre-cert Daniella Serra [employer], [employer]
[2018-09-26 09:21] LABS: Anion Gap 10 (5-15); BUN 15 mg/dL (7-18); BUN/Creat Ratio 17.3 RATIO (10-20); Calcium,Total 8.5 mg/dL (8.5-10.1); Chloride 101 mmol/L (98-107); Creatinine, Serum 0.87 mg/dL (0.55-1.02); EST Glomerular Filtration Rate 68 mL/min (>60); Est Glom Filt Rate - Afr Amer 82 mL/min (>60); Estimated Creatinine Clearance 40.75 ml/min; Glucose 119 mg/dL (74-106); Potassium 3.8 mmol/L (3.5-5.1); Sodium Level 134 mmol/L (136-145)
[2018-09-26 09:24] VITALS: BP 157/61; PULSE 64; RESP 18; TEMP 36.6; O2SAT 99
[2018-09-26 09:28] VITALS: PULSE 64
[2018-09-26] MEDS: hydroCHLOROthiazide 25 MG Tablet PO (09:28)
[2018-09-26] MEDS: Pyridoxine HCl 100 MG Tablet PO (09:28)
[2018-09-26] MEDS: metFORMIN HCl 500 MG Tablet 1000 MG PO (09:28)
[2018-09-26] MEDS: Metoprolol(XL)Succ 100 MG Tablet PO (09:28)
[2018-09-26] MEDS: Famotidine 20 MG Tablet PO (09:28)
[2018-09-26] MEDS: Lisinopril 20 MG Tablet PO (09:28)
[2018-09-26] MEDS: dilTIAZem CD 180 MG Capsule PO (09:28)
[2018-09-26] MEDS: Calcium Carbonate 500 MG Tablet PO (09:28)
[2018-09-26] MEDS: Enoxaparin 40 MG/0.4 ML Syringe SC (09:28)
[2018-09-26 09:40] VITALS: PULSE 64
--- NOTE | 2018-09-26 11:12 | PCM.TXEXTCAR ---
- Diet 09/21/18 16:13 ADA [Diet: Calorie Controlled] Food consistency:: Mechanical Soft/Ground Liquid Consistency:: Regular/Thin Is pt able to select menu?: Yes How many daily calories?: 1800 calorie - Routine Orders/Code Status Enema Type: Fleetz Enema Frequency: Daily PRN Suppository Type: Dulcolax 10mg Suppository Frequency: Daily PRN O2 Frequency: PRN Keep PO Greater than or Equal to (%): 90 - Wound(s) left hip Wound Type: Surgical Incision - Therapies Weight Bearing: Weight bearing as tolerated Physical Therapy: Eval and Treat Occupational Therapy: Eval and Treat - Allergies/Procedures Done in Hospital Allergies/Adverse Reactions: Allergies Sulfa (Sulfonamide Antibiotics) Allergy (Verified 09/21/18 00:17) Hives atorvastatin Adverse Reaction (Verified 09/21/18 00:17) Nausea Procedures: None - Type of Care/Length of Stay Estimated LOS: Convalescent Care Less Than 30 days Type of Care Needed: Skilled Rehab Potential: Fair Prognosis: Fair - Additional Orders/Day of Discharge Day of Discharge: 09/26/18 - Dietary and Speech Recommendations Dietitian Recommendations/Changes: Rec diet change to 1600 calorie mech soft. Rec d/c ONS medpas at time of discharge. - Follow Up Care Primary Care Physician: John Del Valle MD [Primary Care Provider] - Please follow up with your Primary Care Physician in: one week Please Follow Up With: Cristino Lopez MD When: 2 weeks
--- NOTE | 2018-09-26 12:15 | CASEMGMT ---
Social Work Note SW received message from Stephanie at [facility] stating pre-cert has been obtained and pt is able to discharge today. Physician updated. LAY faxed completed discharge paperwork to Stephanie at [facility] including transfer to extended care facility, signed medication list and any scripts. Original in SNF folder and copy on pt's chart. SW had completed [facility] in [facility] Wednesday. Original in SNF folder and copy on pt's chart. LAY spoke with RN who states due to pt's confusion and hallucination, pt can be transported via cot and that pt no longer needs to be in isolation. LAY placed a call to [facility] and arranged transportation via cot. Transportation form on SNF folder and copy on pt's chart. LAY placed a call to Stephanie at [facility], left her a message informing her of transportation time. LAY updated pt and placed a call to pt's daughter Lisandra and updated her on discharge to [facility] today and transportation time. Lisandra asked this worker about rehab at [facility] as pt mentioned this over the weekend. LAY informed Lisandra that this worker did call TCU last week at [facility] and at that time they didn't have any beds available which is why pt needed to go to a different SNF for short term rehabilitation. LAY explained that pre-cert has been obtained and that if pre-cert were to get submitted again pt may get denied as she is walking well now (Per PT pt is walking 50ft stand by assist). LAY informed Lisandra that placement is short term at [facility]. Lisandra states understanding. Plan: Pt to discharge to [facility] skilled today with [facility] transporting via cot at 1:00pm Daniella HYDE, MELL
[2018-09-26 12:16] LABS: Bedside Glucose 159 mg/dL (70-110)
[2018-09-26 12:55] VITALS: BP 147/63; PULSE 68; RESP 18; TEMP 36.7; O2SAT 97
--- NOTE | 2018-09-26 14:40 | PCM.DC.SUM ---
Discharge Date and Diagnosis Date of Admission: 09/21/18 Date of Discharge: 09/26/18 - Primary Discharge Diagnosis left femoral neck fracture mechanical fall Hospital Course and Treatment Imaging Results: Diagnostic Data Hip/Pelvis X-Ray 09/21/18 12:50 IMPRESSION: Status post left total hip arthroplasty. Electronically Signed: Dipesh Estrada MD at 15:19 EDT , Service support , Chest X-Ray 09/22/18 05:12 IMPRESSION: No acute abnormality is seen. There has been no change since prior examination. Electronically Signed: Jr Muñoz, at 10:02 EDT , Service support , orthopedic surgery- Dr Jalil Lopez Operations: - - Left hip hemiarthroplasty Procedures: None Summary of Care Provided: The patient is a 73 year old F with past medical history as listed was admitted through the ED on 09/21/2018 with a complaint of a fall after she went out to smoke. She landed on her left hip and was unable to ambulate. Imaging done in the ED showed impacted transcervical left femoral neck fracture. She was admitted and managed for left hip fracture due to mechanical fall. Orthopedics was consulted. She had left hip hemiarthroplasty on 09/21/2018. Patient subsequently developed a low-grade fever and was empirically started on ceftriaxone for UTI. However UA was negative and urine culture was also negative. She remained stable and was discharged to halfway on 09/26/2018 for intensive rehab. She was put on Eliquis 2.5 mg twice daily for 35 days for DVT prophylaxis. She is to follow-up with her primary care doctor and with orthopedic surgery. Of note, history was also completed on mildly by hyponatremia which is due to be due to dehydration. This corrected with demonstration of IV fluids was 134 on day of discharge. Patient seen and examined prior to discharge. She had no complaints and felt well. Pain was well controlled. She had had some diarrhea but this is stopped for a few days. Review of systems otherwise negative. Labs vitals reviewed. Home medication reviewed and reconciled. o/e: Vital Signs Height 5 ft Weight: 149 lb 7.998 oz Weight in Pounds 149.5 lbs Pulse Ox 97 Temperature 98.0 F Pulse Rate 68 Respiratory Rate 18 Blood Pressure [BP] 146/63 Blood Pressure 147/63 Blood Pressure Position [BP] Semi-Fowlers Blood Pressure Position Sitting [] General: Alert, Oriented x3, Cooperative, No apparent distress HEENT: Atraumatic, PERRLA, EOMI, Normocephalic Oral: Moist Mucosa Neck: Supple, No JVD, Negative Carotid Bruits Lungs: has diminished breath sounds bibasally, no wheeze or crackles. Cardiovascular: Regular rate, Regular Rhythm, Normal S1, Normal S2, No murmurs Abdomen: Bowel Sounds Present, Soft, Non Tender, Non-Distended, No Hepato-splenomegaly Extremities: No edema, Capillary Refill Less than 3 Seconds Skin: No rashes, No breakdown Musculoskeletal: - - left hip surgical site well healed; Lymphatic: No Cervical, Supraclavicular, or Inguinal Adenopathy Neurological: Cranial nerves II-XII grossly intact, Neuro grossly intact Psych/Mental Status: Normal Affect, Appropriate, Alert and oriented to time, place, person, mood and affect Plan as above. - Physical Exam Vital Signs Temp Pulse Resp BP Pulse Ox 98.0 F 68 18 147/63 H 97 09/26/18 12:55 09/26/18 12:55 09/26/18 12:55 09/26/18 12:55 09/26/18 12:55 Oxygen Flow Rate (L/min) 2 Oxygen Delivery Method Room Air Weight: 149 lb 7.998 oz Body Mass Index (BMI) 29.2 Finger Stick Blood Glucose 146 Intake and Output for Last 24 Hours 09/24/18 09/25/18 09/26/18 23:59 23:59 23:59 Intake Total 1180 / 1180 1075 / 1075 900 / 900 Output Total 300 / 300 Balance 1180 / 1180 775 / 775 900 / 900 Microbiology Past 72 Hours 09/23/18 Unknown Urine Culture - Final Urine, Catheterized Culture exhibits no growth. Laboratory Tests Past 24 Hrs 09/23/18 09/26/18 05:10 08:40 Diff Path Review Reviewed Sodium 134 L Potassium 3.8 Chloride 101 Carbon Dioxide 23.0 Anion Gap 10 BUN 15 Creatinine 0.87 Estim Creat Clear Calc 40.75 Est GFR (MDRD) Af Amer 82 Est GFR (MDRD) Non-Af 68 BUN/Creatinine Ratio 17.3 Glucose 119 H Calcium 8.5 POC Glucose 09/26/18 09/26/18 09/25/18 11:53 06:17 22:37 POC Glucose 159 H 156 H 147 H 09/25/18 16:13 POC Glucose 139 H Discharge Diet: Low fat/ Low Cholesterol Home Medications: Medications to take at Discharge Acetaminophen [Tylenol] 500 - 1,000 mg PO Q6H PRN PRN 09/21/18 Diltiazem HCl [Cartia Xt] 240 mg PO DAILY 09/21/18 Ergocalciferol [Vitamin D] 1 tab PO QWEEK 09/21/18 Famotidine 20 mg PO BID 09/21/18 Fluticasone/Vilanterol [Breo Ellipta 100-25 Mcg INH] 1 puff IH DAILY PRN 09/21/18 Hydrochlorothiazide [Hctz] 25 mg PO DAILY 09/21/18 Lisinopril [Zestril] 20 mg PO BID 09/21/18 Metformin HCl 500 mg PO BID 09/21/18 Metoprolol Succinate 100 mg PO DAILY 09/21/18 Pyridoxine HCl (Vitamin B6) [B-6] 100 mg PO DAILY 09/21/18 Tobramycin Sulf 0.3% [Tobrex] 1 drop LEFT EYE TID 09/21/18 Apixaban [Eliquis] 2.5 mg PO BID 35 Days #70 tab 09/26/18 Following Prescrptions Were Given to Patient: Apixaban [Eliquis] 2.5 mg PO BID 35 Days #70 tab Primary Care Physician: John Del Valle MD [Primary Care Provider] - Please follow up with your Primary Care Physician in: one week Please Follow Up With: Cristino Lopez MD When: 2 weeks Disposition: Detention facility Minutes spent on discharge:: 40 Patient Condition:: Stable Medical Necessity - Tobacco Use Smoking Status: Current every day smoker Tobacco Use: Cigarettes Meaningful Use Info Meaningful Use Diagnoses (Choose all that apply): None applicable Code Visit Inpatient E&M: 76020 Disch Hosp
--- NOTE | 2018-09-26 14:46 | DS.PCM_ITS ---
Discharge Date and Diagnosis Date of Admission: 09/21/18 Date of Discharge: 09/26/18 - Primary Discharge Diagnosis left femoral neck fracture mechanical fall Hospital Course and Treatment Imaging Results: Diagnostic Data Hip/Pelvis X-Ray 09/21/18 12:50 IMPRESSION: Status post left total hip arthroplasty. Electronically Signed: Dipesh Estrada MD at 15:19 EDT , Service support , Chest X-Ray 09/22/18 05:12 IMPRESSION: No acute abnormality is seen. There has been no change since prior examination. Electronically Signed: Jr Muñoz, at 10:02 EDT , Service support , orthopedic surgery- Dr Jalil Lopez Operations: - - Left hip hemiarthroplasty Procedures: None Summary of Care Provided: The patient is a 73 year old F with past medical history as listed was admitted through the ED on 09/21/2018 with a complaint of a fall after she went out to smoke. She landed on her left hip and was unable to ambulate. Imaging done in the ED showed impacted transcervical left femoral neck fracture. She was admitted and managed for left hip fracture due to mechanical fall. Orthopedics was consulted. She had left hip hemiarthroplasty on 09/21/2018. Patient subsequently developed a low-grade fever and was empirically started on ceftriaxone for UTI. However UA was negative and urine culture was also negative. She remained stable and was discharged to [facility] on 09/26/2018 for intensive rehab. She was put on Eliquis 2.5 mg twice daily for 35 days for DVT prophylaxis. She is to follow-up with her primary care doctor and with orthopedic surgery. Of note, history was also completed on mildly by hyponatremia which is due to be due to dehydration. This corrected with demonstration of IV fluids was 134 on day of discharge. Patient seen and examined prior to discharge. She had no complaints and felt well. Pain was well controlled. She had had some diarrhea but this is stopped for a few days. Review of systems otherwise negative. Labs vitals reviewed. Home medication reviewed and reconciled. o/e: Vital Signs Height 5 ft Weight: 149 lb 7.998 oz Weight in Pounds 149.5 lbs Pulse Ox 97 Temperature 98.0 F Pulse Rate 68 Respiratory Rate 18 Blood Pressure [BP] 146/63 Blood Pressure 147/63 Blood Pressure Position [BP] Semi-Fowlers Blood Pressure Position Sitting [] General: Alert, Oriented x3, Cooperative, No apparent distress HEENT: Atraumatic, PERRLA, EOMI, Normocephalic Oral: Moist Mucosa Neck: Supple, No JVD, Negative Carotid Bruits Lungs: has diminished breath sounds bibasally, no wheeze or crackles. Cardiovascular: Regular rate, Regular Rhythm, Normal S1, Normal S2, No murmurs Abdomen: Bowel Sounds Present, Soft, Non Tender, Non-Distended, No Hepato- splenomegaly Extremities: No edema, Capillary Refill Less than 3 Seconds Skin: No rashes, No breakdown Musculoskeletal: - - left hip surgical site well healed; Lymphatic: No Cervical, Supraclavicular, or Inguinal Adenopathy Neurological: Cranial nerves II-XII grossly intact, Neuro grossly intact Psych/Mental Status: Normal Affect, Appropriate, Alert and oriented to time, place, person, mood and affect Plan as above. - Physical Exam Vital Signs Temp Pulse Resp BP Pulse Ox 98.0 F 68 18 147/63 H 97 09/26/18 12:55 09/26/18 12:55 09/26/18 12:55 09/26/18 12:55 09/26/18 12:55 Oxygen Flow Rate (L/min) 2 Oxygen Delivery Method Room Air Weight: 149 lb 7.998 oz Body Mass Index (BMI) 29.2 Finger Stick Blood Glucose 146 Intake and Output for Last 24 Hours 09/24/18 09/25/18 09/26/18 23:59 23:59 23:59 Intake Total 1180 / 1180 1075 / 1075 900 / 900 Output Total 300 / 300 Balance 1180 / 1180 775 / 775 900 / 900 Microbiology Past 72 Hours 09/23/18 Unknown Urine Culture - Final Urine, Catheterized Culture exhibits no growth. Laboratory Tests Past 24 Hrs 09/23/18 09/26/18 05:10 08:40 Diff Path Review Reviewed Sodium 134 L Potassium 3.8 Chloride 101 Carbon Dioxide 23.0 Anion Gap 10 BUN 15 Creatinine 0.87 Estim Creat Clear Calc 40.75 Est GFR (MDRD) Af Amer 82 Est GFR (MDRD) Non-Af 68 BUN/Creatinine Ratio 17.3 Glucose 119 H Calcium 8.5 POC Glucose 09/26/18 09/26/18 09/25/18 11:53 06:17 22:37 POC Glucose 159 H 156 H 147 H 09/25/18 16:13 POC Glucose 139 H Discharge Diet: Low fat/ Low Cholesterol Home Medications: Medications to take at Discharge Acetaminophen [Tylenol] 500 - 1,000 mg PO Q6H PRN PRN 09/21/18 Diltiazem HCl [Cartia Xt] 240 mg PO DAILY 09/21/18 Ergocalciferol [Vitamin D] 1 tab PO QWEEK 09/21/18 Famotidine 20 mg PO BID 09/21/18 Fluticasone/Vilanterol [Breo Ellipta 100-25 Mcg INH] 1 puff IH DAILY PRN 09/21/18 Hydrochlorothiazide [Hctz] 25 mg PO DAILY 09/21/18 Lisinopril [Zestril] 20 mg PO BID 09/21/18 Metformin HCl 500 mg PO BID 09/21/18 Metoprolol Succinate 100 mg PO DAILY 09/21/18 Pyridoxine HCl (Vitamin B6) [B-6] 100 mg PO DAILY 09/21/18 Tobramycin Sulf 0.3% [Tobrex] 1 drop LEFT EYE TID 09/21/18 Apixaban [Eliquis] 2.5 mg PO BID 35 Days #70 tab 09/26/18 Following Prescrptions Were Given to Patient: Apixaban [Eliquis] 2.5 mg PO BID 35 Days #70 tab Primary Care Physician: John Del Valle MD [Primary Care Provider] - Please follow up with your Primary Care Physician in: one week Please Follow Up With: Cristino Lopez MD When: 2 weeks Disposition: Nursing Home facility Minutes spent on discharge:: 40 Patient Condition:: Stable Medical Necessity - Tobacco Use Smoking Status: Current every day smoker Tobacco Use: Cigarettes Meaningful Use Info Meaningful Use Diagnoses (Choose all that apply): None applicable Code Visit Inpatient E&M: 38554 Disch Hosp
[2018-09-26 15:13] LABS: Pathologist Review Reviewed
[2018-09-26 15:22] LABS: Pathologist Review Reviewed
== END 2018-09-26 13:11 | DRG 470 ==
LOC: ED 02:16 → MS3 03:11
PROVIDERS: Anesthesiology; Internal Medicine; Specialist; Admitting Provider Internal Medicine; Emergency Provider Emergency Medicine; Family Provider Family Medicine; PCP Family Medicine; Visit Provider Student in an Organized Health Care Education/Training Program
PROC: 0SRS019 Replacement of Left Hip Joint, Femoral Surface with Metal Synthetic Substitute, Cemented, Open Approach (ICD-10-PCS; CPT 27125; principal; 2018-09-21 09:55)
DX: S72.012A Unspecified intracapsular fracture of left femur, initial encounter for closed fracture (principal); E87.1 Hypo-osmolality and hyponatremia; W10.9XXA Fall (on) (from) unspecified stairs and steps, initial encounter; Y93.89 Activity, other specified; Y92.008 Other place in unspecified non-institutional (private) residence as the place of occurrence of the external cause; F17.210 Nicotine dependence, cigarettes, uncomplicated; J44.9 Chronic obstructive pulmonary disease, unspecified; I10 Essential (primary) hypertension; E11.9 Type 2 diabetes mellitus without complications; M21.371 Foot drop, right foot; E86.0 Dehydration; R32 Unspecified urinary incontinence
CPT/HCPCS: 36415; 71045; 73501; 73502; 76000; 80048; 81001; 82962; 83036; 85025; 86850; 86900; 87086; 88305; 88311; 93005; 94640; 94667; 94668; 94762; 97110; 97116; 97162; 97166; 97530; 97535; 97803; 99251; 99283; 99406; C1776; J7030; A4216; G0463; J2405

== ENCOUNTER → 2018-11-11 | Outpatient (CLI) | payer MEDICARE, SELFPAY ==
[2018-09-21 08:29] VITALS: BMI 29.2
--- NOTE | 2018-11-11 06:34 | CT_ITS ---
STUDY: CT CHEST WITHOUT CONTRAST REASON FOR EXAM: Female, 73 years old. Lung nodule. History of uterine cancer. RADIATION DOSAGE (If Supplied By Facility): CTDIvol = ( 11.03 ) mGy, DLP = ( 385.70 ) mGycm TECHNIQUE: Transaxial imaging was performed without the administration of intravenous contrast material. Individualized dose optimization techniques were used for this CT. COMPARISON: None. FINDINGS: There is heterogeneous enlargement of both lobes of the thyroid gland more prominent on the right side with substernal extension on the right side. Focal calcification is seen along the lateral aspect of the right lobe of the thyroid. Small bilateral axillary lymph nodes. There is a 3.3 mm partially calcified nodule in the right upper lobe as seen on axial image #28. This most likely represents a granuloma. Mild degree of the linear scarring at the lung bases. There is no demonstrated pleural abnormality. There are calcifications of the coronary arteries. There are multiple small lymph nodes within the mediastinum, which are normal in size and morphology most compatible with reactive lymph hyperplasia. Normal hilar regions. Normal unenhanced pulmonary arteries. There is atherosclerotic calcification of the aortic arch with tortuosity and elongation of the aortic arch and descending thoracic aorta. There are multi-level degenerative changes of the thoracic spine. There is no demonstrated abnormality of the visualized upper abdomen. CT/Chest without Contrast IMPRESSION: Markedly enlarged thyroid with a right-sided substernal extension. Calcified granuloma in the right upper lobe. The previously seen nodular density in the chest radiograph most likely recurrence prominence of the rib. Electronically Signed: Jr Muñoz, at 8:50 EDT , Service support ,
== END | disposition home or self-care (01) ==
LOC: CT 06:33
PROVIDERS: Family Provider Family Medicine; PCP Family Medicine; Referring Provider Family Medicine; Visit Provider Family Medicine
DX: R91.1 Solitary pulmonary nodule (principal)
CPT/HCPCS: 71250

== ENCOUNTER → 2018-11-16 | Outpatient (CLI) | payer MEDICARE, SELFPAY ==
[2018-09-21 08:29] VITALS: BMI 29.2
--- NOTE | 2018-11-16 14:30 | US_ITS ---
STUDY: THYROID ULTRASOUND REASON FOR EXAM: Female, 73 years old. Thyromegaly TECHNIQUE: Ultrasound evaluation of the thyroid was performed with real-time and static nicole-scale imaging. COMPARISON: 12/20/2017 FINDINGS: RIGHT LOBE: The right lobe of the thyroid gland measures 9.7 x 4.0 x 4.1 cm. There is a heterogeneous echotexture. There are multiple solid nodules. The 3 largest measure 1.9, 2.3, and 4.2 cm. LEFT LOBE: The left lobe of the thyroid gland measures 7.7 x 3.8 x 3.3 cm. There is a heterogeneous echotexture. There are multiple solid nodules. The 3 largest measure 2.0, 2.0, 2.1, and 2.1 cm. ISTHMUS: The isthmus measures 8 mm . The regional lymph nodes are normal. US/Thyroid IMPRESSION: Probable moderately large multinodular goiter, grossly stable. Electronically Signed: Shankar Fiore MD at 16:54 EDT , Service support ,
== END | disposition home or self-care (01) ==
PROVIDERS: Family Provider Family Medicine; PCP Family Medicine; Referring Provider Family Medicine; Visit Provider Family Medicine
DX: E01.0 Iodine-deficiency related diffuse (endemic) goiter (principal)
CPT/HCPCS: 76536

== ENCOUNTER → 2018-12-15 | Outpatient (CLI) | payer MEDICARE, SELFPAY ==
[2018-09-21 08:29] VITALS: BMI 29.2
== END | disposition home or self-care (01) ==
PROVIDERS: Family Provider Family Medicine; PCP Family Medicine; Referring Provider Family Medicine; Visit Provider Family Medicine
DX: N39.0 Urinary tract infection, site not specified (principal)
CPT/HCPCS: 87077; 87086; 87088; 87186

== ENCOUNTER → 2019-02-28 16:32 | Outpatient (CLI) | payer MEDICARE, SELFPAY ==
[2018-09-21 08:29] VITALS: BMI 29.2
== END ==
PROVIDERS: Family Provider Family Medicine; PCP Family Medicine; Referring Provider Family Medicine; Visit Provider Family Medicine
DX: R30.0 Dysuria (principal)
CPT/HCPCS: 87077; 87086; 87088; 87186

== ENCOUNTER → 2019-04-05 13:02 | Outpatient (CLI) | payer MEDICARE, SELFPAY ==
[2018-09-21 08:29] VITALS: BMI 29.2
--- NOTE | 2019-04-05 13:05 | RAD_ITS ---
STUDY: X-RAY - LUMBAR SPINE REASON FOR EXAM: Female, 73 years old. Lower back pain. Hip and leg pain. TECHNIQUE: 5 view(s) of the lumbar spine were obtained. COMPARISON: None FINDINGS: Normal lumbar lordosis. There is a mild levoscoliosis with convexity at L2. There is a normal alignment of the vertebrae. There is diffuse demineralization with multi-level endplate spondylosis. There is multi-level degenerative disc disease with multi-level disc space narrowing. There is no evidence of acute fracture or loss of vertebral axial height. There is no demonstrated spondylolysis of the pars interarticulares. There is atherosclerotic calcification of the abdominal aorta without a demonstrated aneurysm. There is a left total hip arthroplasty. Cholecystectomy clips are seen in the right upper quadrant. RAD/L/S Spine Min 4 Views IMPRESSION: Degenerative changes of the spine, as detailed above. Electronically Signed: Kel Cope DO at 19:07 EST Tel [phone], Service support ,
== END ==
PROVIDERS: Family Provider Family Medicine; PCP Family Medicine; Referring Provider Family Medicine; Visit Provider Family Medicine
DX: M54.5 Low back pain (principal); N39.0 Urinary tract infection, site not specified
CPT/HCPCS: 72110; 87086; 87088

== ENCOUNTER → 2019-05-02 12:12 | Outpatient (CLI) | payer MEDICARE, SELFPAY ==
[2018-09-21 08:29] VITALS: BMI 29.2
[2019-05-02 15:40] LABS: Anion Gap 9 (5-15); BUN 13 mg/dL (7-18); BUN/Creat Ratio 18.7 RATIO (10-20); Calcium,Total 9.8 mg/dL (8.5-10.1); Chloride 89 mmol/L (98-107); EST Glomerular Filtration Rate 87 mL/min (>60); Est Glom Filt Rate - Afr Amer 106 mL/min (>60); Glucose 135 mg/dL (74-106); Potassium 4.9 mmol/L (3.5-5.1); Sodium Level 125 mmol/L (136-145)
== END ==
PROVIDERS: Family Provider Family Medicine; PCP Family Medicine; Referring Provider Family Medicine; Visit Provider Family Medicine
DX: E87.1 Hypo-osmolality and hyponatremia (principal)
CPT/HCPCS: 36415; 80048

== ENCOUNTER 2019-05-02 20:26 | Inpatient (IN) | payer MEDICARE, SELFPAY ==
[2019-05-02 20:29] VITALS: BP 138/79; PULSE 63; RESP 16; TEMP 36.7; O2SAT 97; BMI 25.4
[2019-05-02 22:05] VITALS: BP 166/66; PULSE 70; RESP 17; O2SAT 98
--- NOTE | 2019-05-02 22:17 | EKG12_ITS ---
Test Reason : SOB Blood Pressure : / mmHG Vent. Rate : 067 BPM Atrial Rate : 067 BPM P-R Int : 140 ms QRS Dur : 120 ms QT Int : 426 ms P-R-T Axes : 065 -40 090 degrees QTc Int : 450 ms Sinus rhythm with marked sinus arrhythmia Left axis deviation / LAHB Possible Anterior infarct , age undetermined Abnormal ECG Confirmed by TROY WAYNE ([id number]), newspaper or periodical editor GALINA BUCIO ([id number] on 05/04/2019 10:45:36 AM Referred By: MATT Confirmed By:TROY WAYNE
--- NOTE | 2019-05-02 22:21 | ED.VIS.GEN ---
History of Present Illness Chief Complaint: Abn Labs Detail of Chief Complaint: Sodium 125 and change in mental status Informant: Patient, Family, PCP Onset: - - Normal labs noted today Context: - - Unknown Timing: - - Unknown Quality: Patient with confusion, low sodium and urinary symptoms Location: Home Current Severity: Mild Maximum Severity: Moderate Worsened by: Possible UTI and hyponatremia Relieved by: Nothing Associated Symptoms: Limited history Narrative: Patient is a 74-year-old woman who was recently admitted to [facility] for compression fraction and hyponatremia. She had a 21-day stay. She was discharged from [facility] this past April 29. She had blood work performed today which revealed a sodium of 125 per her PCP. She is slightly confused. She is not her normal self according to daughter. She also had frequency and some discomfort with urination. She also has had a cough for the past several days. The cough is nonproductive. No other history is obtainable. Prior similar symptoms: Yes Recent Illness/Hospitalization: Yes - Past Medical History (1) Recent compression fractures Status: Acute (2) Urinary tract infection Status: Acute (3) Hyponatremia Status: Acute Past Medical History - Allergies and Home Meds Allergies/Adverse Reactions: Allergies Iodinated Contrast Media Adverse Reaction (Verified 05/02/19 20:32) Vomiting Primary Care Physician: John Del Valle MD [Primary Care Provider] - Prior records reviewed: No Surgical History: noncontributory Lives: With Family Smoking Status: Current every day smoker Alcohol: None Drugs: None Review of Systems ROS: Unable to Obtain - Noted to what daughter was able to tell me and what PCP told me prior to her arrival General: Reports: Malaise. Denies: Chills, Fever Eyes: Denies: Visual changes - bilaterally, Blurred Vision - bilaterally ENT: Denies: Rhinorrhea, Sore throat Cardiovascular: Denies: Chest pain, Palpitations Respiratory: Reports: Dyspnea, Cough, Dyspnea on exertion. Denies: Sputum, Orthopnea Gastrointestinal: Denies: Abdominal pain, Nausea, Vomiting Genitourinary: Reports: Dysuria, Frequency. Denies: Hematuria Musculoskeletal: Reports: Back pain. Denies: Myalgias, Arthralgias, Neck pain, Swelling Skin: Denies: Rash, Wounds Neurological: Reports: Weakness. Denies: Headache, Parasthesia Hematologic: Denies: Easy bruising, Easy bleeding Allergy: Denies: Uticaria, Swelling of the mouth, Swelling of the tongue Physical Exam Vital Signs/Narrative: Vital Signs Temp Pulse Resp BP Pulse Ox 05/02/19 22:05 70 17 166/66 H 98 05/02/19 20:29 98.0 F 63 16 138/79 H 97 Inital Vital Signs reviewed: Yes General: Well nourished, Well developed, Obese, No Acute Distress Head: Normocephalic, Atraumatic Eyes: Perrl, EOMI. Negative for: Pale conjunctiva, Scleral icterus ENT: No rhinorrhea, TM's clear Neck: Supple, Nontender, No lymphadenopathy, No JVD Cardiovascular: Regular rate, Regular rhythm, No murmurs, Normal S1, Normal S2 Respiratory: No distress, Chest nontender, Rhonchi. Negative for: CTA bilaterally Abdomen: Soft, Nontender, Nondistended, Normal bowel sounds Rectal: Deferred Back: Nontender, Normal Inspection Extremities: Nontender, No edema Skin: No rash, No Trauma, Pallor. Negative for: Normal color, Cyanosis, Diaphoresis, Jaundice Neurological: Alert, Cranial nerves II-XII grossly intact, Normal Strength, Normal Sensation. Negative for: Oriented x3 Psychological: Normal affect Diagnostic/Tx/Re-eval Chest X-Ray - ED: 2 View, Read by ED Physician, Normal, Heart, Bony Structures, No Acute Disease, Chronic Changes, - - There is congestion of the hilum bilaterally. There are chronic changes noted. There is degenerative changes of the thoracic vertebrae noted. There is no evidence of pneumothorax or effusion. There is no infiltrate. X-rays interpreted by me at 2312. Impressions Chest X-Ray 05/02/19 22:40 IMPRESSION: Prominent central pulmonary vasculature. Electronically Signed: Efren Al DO at 23:28 EST Tel [phone], Service support , 05/02/19 22:40 Chest PA and Lateral [RAD] Stat Laboratory Results 05/02/19 05/02/19 05/02/19 23:16 23:16 23:26 WBC 17.4 H RBC 4.87 Hgb 13.1 Hct 38.9 MCV 79.9 L MCH 26.9 L MCHC 33.7 RDW Std Deviation 37.3 RDW Coeff of Erinn 13.2 Plt Count 328 MPV 8.0 Immature Gran % (Auto) 1.400 H Neut % (Auto) 60.7 Lymph % (Auto) 24.0 [place] % (Auto) 13.1 H Eos % (Auto) 0.5 Baso % (Auto) 0.3 Absolute Neuts (auto) 10.6 H Absolute Lymphs (auto) 4.16 Nucleated RBC % 0 Sodium 124 L Potassium 5.0 Chloride 91 L Carbon Dioxide 25.0 Anion Gap 8 BUN 14 Creatinine 0.56 Estim Creat Clear Calc 34.91 Est GFR (MDRD) Af Amer 134 Est GFR (MDRD) Non-Af 111 BUN/Creatinine Ratio 24.8 H Glucose 133 H Calcium 9.5 Urine Color Yellow Urine Clarity Clear Urine pH 7.0 Ur Specific [place] 1.005 Urine Protein Negative Urine Glucose (UA) Normal Urine Ketones Negative Urine Occult Blood Negative Urine Nitrite Negative Urine Bilirubin Negative Urine Urobilinogen Normal Ur Leukocyte Esterase Negative There is no evidence of urinary tract infection. Patient sodium is low at 124. This is in all likelihood the cause of her symptoms and confusion. According to PCP her sodium had normalized prior to discharge from [facility]. She was discharged 3 days ago. Suspect the hyponatremia and hypochloremia secondary to thiazide diuretic. Because white count is 17.4 with recent infection blood cultures were obtained. There is no evidence of pneumonia or urinary tract infection. - EKG Initial EKG Interpretation: Sinus Rhythm - Sinus rhythm with a ventricular rate of 67. NC interval is 140 ms. QS duration 120 ms. QT duration 426 ms. There is decreased anterior force. [place] to the left. - Medical Decision Making With confusion and history of hyponatremia and recent urinary tract infection with urinary symptoms will obtain CBC, basic metabolic panel, UA. If sodium is low will obtain urine osmolarity and serum osmolarity as well. Because patient has cough with rhonchi will obtain a chest x-ray to evaluate for pneumonia. Urine osmolarity was not obtained nor was urine sodium or chloride since she is on a thiazide diuretic. Since her physician called and informed me that her sodium had normalized nothing abruptly abnormal suspect this is the cause of her change in mental status. Macro urine results are negative. Micro is pending. ED Disposition - Plan for ED Patient: Disposition: Acute Care Hospital [facility] Diagnosis: Acute hyponatremia, Leukocytosis, unspecified Referrals: John Del Valle MD [Primary Care Provider] -
--- NOTE | 2019-05-02 22:32 | ED.RN ---
NO OLD EKGS IN MUSE
[2019-05-02] MEDS: 0.9% Normal Saline 1,000 ML 250 ML IV (22:37)
--- NOTE | 2019-05-02 22:40 | RAD_ITS ---
STUDY: X-RAY CHEST REASON FOR EXAM: Female, 74 years old. Cough TECHNIQUE: Frontal and lateral views COMPARISON: None. FINDINGS: The lungs are clear and expanded. There is no demonstrated pleural abnormality. Normal size heart. Normal mediastinum and mercedes. Prominent central pulmonary arteries. Mildly calcified visualized aortic arch and descending thoracic aorta. Degenerative changes of the thoracic spine. Normal visualized ribs, clavicles, and shoulders. There is no demonstrated abnormality of the visualized soft tissue structures of the upper abdomen. RAD/Chest PA and Lateral IMPRESSION: Prominent central pulmonary vasculature. Electronically Signed: Efren Al DO at 23:28 EST Tel [phone], Service support ,
[2019-05-02 23:11] VITALS: BP 178/66; PULSE 61; RESP 14; O2SAT 97
[2019-05-02 23:28] LABS: Absolute Lymphocyte Count 4.16 X10^3/uL (0.83-4.51); Absolute Neutrophil Count 10.6 X10^3/uL (2.0-7.7); Basophil# 0.05 X10^3/uL; Basophil% 0.3 % (0-1); Eosinophil# 0.08 X10^3/uL; Eosinophils% 0.5 % (0-5); Hematocrit 38.9 % (37-47); Hemoglobin 13.1 g/dL (12.0-15.0); Lymphocyte # 4.16 X10^3/ul (4.0); Mean Corp Hgb Conc 33.7 g/dL (32-36); Mean Corpuscular Hgb 26.9 pg (27.0-32.0); Mean Corpuscular Volume 79.9 fL (81-99); Monocyte# 2.28 X10^3/uL; Monocyte% 13.1 % (0-10); NRBC Flagged by Analyzer 0 % (0-5); Neutrophil # 10.55 X10^3/uL (2.7-7.7); Neutrophil % 60.7 % (47-70); POSITIVE DIFFERENTIAL YES; Platelet Count 328 K/mm3 (150-450); RBC Distribution Width CV 13.2 % (11.6-14.6); RBC Distribution Width SD 37.3 fl (35.1-43.9); Red Blood Count 4.87 M/mm3 (4.2-5.4); White Blood Count 17.4 K/mm3 (4.4-11.0)
[2019-05-02 23:31] LABS: Bacteria 0 SEEN /hpf (None Seen); Mucous, Urine 0 SEEN /hpf (<or=2+); Red Blood Cells-Urine 0 SEEN /hpf (0-5); Squamous Epithelial Cells - UA 0 SEEN /hpf (5-10); White Blood Cells 0 SEEN /hpf (0-5)
[2019-05-02 23:37] LABS: Color, Urine Yellow (Yellow); Glucose, Dipstick Normal (Normal); Ketone-Dipstick Negative (Negative); Leukocyte Esterase-Dipstick Negative /ul (Negative); Nitrite-Dipstick Negative (Negative); Occult Blood-Urine Negative /ul (Negative); Protein-Dipstick Negative (Negative); Specific Gravity, Urine 1.005 (1.002-1.030); Urine Bilirubin Dipstick Negative (Negative); Urine Clarity Clear (Clear); Urine Urobilinogen Normal (Normal)
[2019-05-02 23:45] LABS: Differential Indicated SCAN CRITERIA MET
[2019-05-03] VITALS (17 sets, daily range): BP systolic 136–193; BP diastolic 51–97; PULSE 54–82; RESP 16–18; TEMP 36.6–36.8; O2SAT 92–100; BMI 27.3
[2019-05-03 00:06] LABS: Anion Gap 8 (5-15); BUN 14 mg/dL (7-18); BUN/Creat Ratio 24.8 RATIO (10-20); Calcium,Total 9.5 mg/dL (8.5-10.1); Chloride 91 mmol/L (98-107); Creatinine, Serum 0.56 mg/dL (0.55-1.02); EST Glomerular Filtration Rate 111 mL/min (>60); Est Glom Filt Rate - Afr Amer 134 mL/min (>60); Estimated Creatinine Clearance 34.91 ml/min; Glucose 133 mg/dL (74-106); Sodium Level 124 mmol/L (136-145)
--- NOTE | 2019-05-03 00:31 | PCM.HP.STD ---
Problem List (1) Recent compression fractures Status: Acute (2) Hyponatremia Status: Acute (3) Leukocytosis, unspecified Status: Acute (4) Compression fracture Status: Chronic (5) Hypertension Status: Chronic Qualifiers: Hypertension type: essential hypertension Qualified Code(s): I10 - Essential (primary) hypertension History of Present Illness Date of Admission: 05/02/19 Chief Complaint: Abnormal labs The patient is a 74 year old F with past medical history of compression fractures who comes in with abnormal blood work. Patient was recently discharged from [place] was seen alf. She lives with her daughter and her . She had blood work done by her primary care doctor and sodium was abnormal at 125. Fortunately. Her daughter, patient was slightly confused. Patient complains of epigastric discomfort. She denied any other complaints. Vitals in the ED showed temperature of 90 8F, heart rate 63, blood pressure 138/79, respiratory to 16, SPO2 was 97% on room air. BC count was 17.4, hemoglobin 13.1, platelet count 328, sodium 124, potassium 5.0, chloride 91, bicarbonate 25, BUN 14, creatinine 0.56, glucose 133, UA is unremarkable. Admitting chest x-ray showed no acute cardiopulmonary process. Past Medical History Past Medical History (Chronic Problems): Chronic Problems Compression fracture (Chronic) Hypertension (Chronic) Allergies Iodinated Contrast Media Adverse Reaction (Verified 05/02/19 20:32) Vomiting Home Medications: Ambulatory Orders Medication Instructions Recorded Albuterol IH (ProAir) [Proair Hfa 1 - 2 puff INHALATION Q4H PRN PRN 05/03/19 (SP)Vent Pts] Diltiazem HCl [Cartia Xt] 240 mg PO DAILY 05/03/19 Famotidine 20 mg PO DAILY 05/03/19 Fluticasone/Vilanterol [Breo 1 puff IH QHS 05/03/19 Ellipta 100-25 Mcg INH] Lisinopril 20 mg PO DAILY 05/03/19 Metformin HCl 500 mg PO BID 05/03/19 Metoprolol(XL)Succ [Toprol Xl 100 mg PO DAILY 05/03/19 (Beta Dionisio)] Potassium Chloride [Klor-Con M20] 20 meq PO DAILY 05/03/19 Quetiapine Fumarate [Seroquel] 50 mg PO DAILY 05/03/19 Quetiapine Fumarate [Seroquel] 75 mg PO QHS 05/03/19 Surgical History: noncontributory Psychiatric History: No pertinent psych hx 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 Denies: Anorexia, Chills, Fever, Night Sweats, Weight Change Eyes: Denies: Blurred vision, Cataracts, Conjunctivae Inflammation, Pain, Redness, Vision Change HEENT: Denies: Difficulty Hearing, Difficulty Swallowing, Head Aches, Hearing Changes, Sinus Congestion, Sinus Drainage Cardiovascular: Denies: Chest Pain, Claudication, Orthopnea, Palpitations Respiratory: Denies: Cough, Hemoptysis, Shortness of breath at rest, Shortness of breath upon exertion, Sputum production Gastrointestinal: Reports: Abdominal Pain - epigastric. Denies: Hematemesis, Hematochezia, Nausea, Vomiting Genitourinary: Denies: Dysuria Musculoskeletal: Denies: Joint Pain, Joint stiffness, Joint swelling, Joint Tenderness Skin: Denies: Rash, Wounds Neurological: Denies: Numbness, Tingling, Focal weakness Psychiatric: Denies: Anxiety, Depression, Homicidal Ideations, Suicidal Ideations Endocrine: Denies: Change in Body Habitus, Heat/ Cold Intolerance Hematologic/ Lymphatic: Denies: Easy Bruising, Easy Bleeding VTE Information - Inpt Only VTE Present on Admission: No VTE Pharm Prophylaxis ordered?: Yes Patient Problems: Active and Suspected Problems Acute hyponatremia (Acute) Leukocytosis, unspecified (Acute) - Physical Exam Vitals/I&O's: Vital Signs Temp Pulse Resp BP Pulse Ox 98.0 F 61 14 178/66 H 97 05/02/19 20:29 05/02/19 23:11 05/02/19 23:11 05/02/19 23:11 05/02/19 23:11 Oxygen Delivery Method Room Air Weight: 58.967 kg Body Mass Index (BMI) 25.4 Intake and Output for Last 24 Hours 05/01/19 05/02/19 05/03/19 23:59 23:59 23:59 Output Total 400 / 400 Balance -400 / -400 General: Alert, Cooperative, No apparent distress, Confused - oriented to place, person, does not know year but knows time of day HEENT: Atraumatic, PERRLA, EOMI, Normocephalic Neck: Supple Lungs: Clear to auscultation, Normal air movement Cardiovascular: Regular rate, Regular Rhythm, Normal S1, Normal S2, No murmurs Abdomen: Bowel Sounds Present, Soft, Non Tender Extremities: No edema, Capillary Refill Less than 3 Seconds Skin: - - Stage II coccygeal pressure ulcer, present on admission Musculoskeletal: No Tenderness to Palpation of Joints or Extremities Lymphatic: No Cervical, Supraclavicular, or Inguinal Adenopathy Neurological: Cranial nerves II-XII grossly intact, Neuro grossly intact Psych/Mental Status: Normal Affect, Appropriate Laboratory Results 05/02/19 23:16: WBC 17.4 H, RBC 4.87, Hgb 13.1, Hct 38.9, MCV 79.9 L, MCH 26.9 L, MCHC 33.7, RDW Std Deviation 37.3, RDW Coeff of Erinn 13.2, Plt Count 328, MPV 8.0, Immature Gran % (Auto) 1.400 H, Neut % (Auto) 60.7, Lymph % (Auto) 24.0, [place] % (Auto) 13.1 H, Eos % (Auto) 0.5, Baso % (Auto) 0.3, Absolute Neuts (auto) 10.6 H, Absolute Lymphs (auto) 4.16, Nucleated RBC % 0 05/02/19 23:16: Sodium 124 L, Potassium 5.0, Chloride 91 L, Carbon Dioxide 25.0, Anion Gap 8, BUN 14, Creatinine 0.56, Estim Creat Clear Calc 34.91, Est GFR (MDRD) Af Amer 134, Est GFR (MDRD) Non-Af 111, BUN/Creatinine Ratio 24.8 H, Glucose 133 H, Calcium 9.5 05/02/19 23:26: Urine Color Yellow, Urine Clarity Clear, Urine pH 7.0, Ur Specific [place] 1.005, Urine Protein Negative, Urine Glucose (UA) Normal, Urine Ketones Negative, Urine Occult Blood Negative, Urine Nitrite Negative, Urine Bilirubin Negative, Urine Urobilinogen Normal, Ur Leukocyte Esterase Negative, Urine RBC 0 SEEN, Urine WBC 0 SEEN, Ur Squamous Epith Cells 0 SEEN, Urine Bacteria 0 SEEN, Urine Mucus 0 SEEN Current Medications Sodium Chloride () 1,000 mls @ 250 mls/hr IV .Q4H [facility] Last Admin: 05/02/19 22:37 Dose: 250 mls/hr Documented by: Assessment/Plan All Active Problems Recent compression fractures (Acute) Urinary tract infection (Acute) Hyponatremia (Acute) Acute hyponatremia (Acute) Leukocytosis, unspecified (Acute) 74 year old F with past medical history of Type 2 DM, hypertension, compression fractures who comes in with abnormal blood work. 1. Acute hyponatremia, reported drop in sodium to 125, unclear recent Na level, Reportedly normal in the alf Will continue on IV fluids, check BMP in a.m., urine osmolarity, urine sodium, TSH 2. Leukocytosis, likely reactive trend in am 3. Stage II coccygeal pressure ulcer, present on admission 4. Type II DM, hold metformin, continue on insulin sliding scale with blood glucose checks 5. Recent history of compression fractures, continue with Tylenol PRN 6. Hypertension, on Cardizem, continue to monitor 7. DVT Prophylaxis with heparin subcu Code Visit Inpatient E&M: 56782 Init Hosp L3
[2019-05-03 00:53] LABS: Differential Comment SCANNED
[2019-05-03] MEDS: 0.9% Normal Saline 1,000 ML 100 ML IV (03:07)
[2019-05-03] MEDS: 0.9% Saline Lock 10 ML Syringe IV ×2 (03:11→22:38)
[2019-05-03 06:12] LABS: Absolute Lymphocyte Count 3.77 X10^3/uL (0.83-4.51); Absolute Neutrophil Count 7.6 X10^3/uL (2.0-7.7); Basophil# 0.04 X10^3/uL; Basophil% 0.3 % (0-1); Eosinophils% 0.7 % (0-5); Hematocrit 36.4 % (37-47); Hemoglobin 12.2 g/dL (12.0-15.0); Lymphocyte # 3.77 X10^3/ul (4.0); Lymphocyte % 27.5 % (19-41); Mean Corp Hgb Conc 33.5 g/dL (32-36); Mean Corpuscular Hgb 26.9 pg (27.0-32.0); Mean Corpuscular Volume 80.4 fL (81-99); Mean Platelet Vol. 8.2 fl (6.2-12.0); Monocyte# 2.02 X10^3/uL; Monocyte% 14.7 % (0-10); NRBC Flagged by Analyzer 0 % (0-5); Neutrophil # 7.63 X10^3/uL (2.7-7.7); Neutrophil % 55.6 % (47-70); POSITIVE DIFFERENTIAL YES; Platelet Count 350 K/mm3 (150-450); RBC Distribution Width CV 13.1 % (11.6-14.6); RBC Distribution Width SD 37.8 fl (35.1-43.9); Red Blood Count 4.53 M/mm3 (4.2-5.4); White Blood Count 13.7 K/mm3 (4.4-11.0)
[2019-05-03] MEDS: Heparin Injection (Vial) 5,000 UNIT/ML VIAL 5000 UNIT SC ×3 (06:17→22:40)
[2019-05-03 06:23] LABS: Bedside Glucose 130 mg/dL (70-110)
[2019-05-03 06:44] LABS: BUN 11 mg/dL (7-18); Creatinine, Serum 0.54 mg/dL (0.55-1.02); Glucose 119 mg/dL (74-106)
[2019-05-03 06:45] LABS: ALB/GLOB Ratio 0.8 RATIO (0.9-2.4); AST(SGOT) 12 U/L (15-37); Alanine Aminotransfer ALT/SGPT 13 U/L (13-56); Alkaline Phosphatase 106 U/L (45-117); Anion Gap 6 (5-15); BUN/Creat Ratio 20.6 RATIO (10-20); Calcium,Total 9.2 mg/dL (8.5-10.1); Chloride 95 mmol/L (98-107); EST Glomerular Filtration Rate 118 mL/min (>60); Est Glom Filt Rate - Afr Amer 143 mL/min (>60); Estimated Creatinine Clearance 34.91 ml/min; Globulin 3.6 g/dL (2.2-4.2); Potassium 3.9 mmol/L (3.5-5.1); Protein, Total 6.6 g/dL (6.4-8.2); Sodium Level 129 mmol/L (136-145)
[2019-05-03] MEDS: Ipratropium/Albuterol Sulfate 3 ML AMPUL.NEB INHALATION ×2 (07:02→19:28)
[2019-05-03] MEDS: Budesonide Respules 0.5 MG/2 ML AMPUL.NEB. INHALATION ×2 (07:02→19:28)
[2019-05-03 07:11] LABS: Differential Indicated SCAN CRITERIA MET
[2019-05-03 07:27] LABS: Reactive Lymphocyte 1+
[2019-05-03 09:05] LABS: Urine Sodium 58 mmol/L (Not Establ.)
[2019-05-03 09:42] LABS: Osmolality, Urine 236 mOsm/KG
[2019-05-03 09:53] LABS: Osmolality, Serum 256 mOsm/KG (280-301)
[2019-05-03] MEDS: Lisinopril 20 MG Tablet PO (10:07)
[2019-05-03] MEDS: Famotidine 200 MG/20 ML MDV 20 MG in 0.9% Normal Saline (Pres. free 8 ML 300 MG IV ×2 (10:07→22:36)
[2019-05-03] MEDS: dilTIAZem CD 240 MG Capsule PO (10:07)
[2019-05-03] MEDS: QUEtiapine 25 MG Tablet 50 MG PO (10:07)
[2019-05-03] MEDS: Metoprolol(XL)Succ 100 MG Tablet PO (10:07)
[2019-05-03] MEDS: Glucerna Shake 120 ML LIQUID PO ×3 (10:08→16:20)
--- NOTE | 2019-05-03 11:09 | CPS ---
started by nursing
[2019-05-03 12:06] LABS: Bedside Glucose 202 mg/dL (70-110)
[2019-05-03] MEDS: Insulin Lispro 100 UNIT/ML INSULN.PEN SC ×3 (12:06→22:37)
--- NOTE | 2019-05-03 12:15 | CASEMGMT ---
KITTY GUZMÁN assessment: Face to Face with patient for initial transition planning/care coordination assessment. KITTY GUZMÁN introduced self and role at [facility], pt voices understanding and consents to assessment at this time. Pt is sitting up in chair in no distress at this time. Pt is A/Ox4 at this time and answers questions appropriately at this time. Pt is hard of hearing. Care providers, pharmacy, and demographics verified at this time. Presentation: Sent by PCP for low NA, 129 Admitting dx: Hyponatremia PCP: [facility] Specialists: Pt states has an ortho physician but cannot remember name at this time. [facility] Pres[facility] Benefit: [employer] Living Will/HPOA: Pt states has a LW/HPOA and is aware that they are not on file at [facility] at this time. Pt states that her daughter, Lisandra Gerber, is HPOA. Pt encouraged to bring copies in when able, voices understanding. LNOK: Lisandra Gerber, daughter Living Arrangements: Pt states lives with daughter in mobile home and states no concerns at home at this time. Pt states that daughter helps to care for her. Pt states daughter helps with ADL's. Transportation: Pt states family drives and states no transportation concerns at this time. DME/HHC: Pt states has the following DME: walker, w/c, grab bars, and shower chair. Pt states pt/daughter is working on getting new walker with script from PCP. Pt states no need for any further DME at this time. Pt states has had HHC in the past and states that she left [facility] on 04/22/19. Pt states no concerns with going home at time of discharge. Pt is retired. Pt states smokes 1/2pk/day and does not drink ETOH. Pt states no further concerns/needs at this time. CM to follow PT/OT evals and for any further discharge planning/needs. Advised pt to ask for CM if any further questions/concerns/needs arise, voices understanding. Pt Goal: Home Plan: TBD, pending PT/OT evals. [place] KITTY GUZMÁN
--- NOTE | 2019-05-03 12:31 | CON.PCM_ITS ---
Problem List (1) Hyponatremia Status: Acute Consultation - Renal 05/03/19 PCP/ Referring MD: Requesting physician: [] Primary care physician: John Del Valle MD Reason for Consultation:: Hyponatremia - History of Present Illness History of Present Illness: The patient is a 74 year old F who was recently admitted to the hospital with a compression fracture, subsequently discharged to a rehab. Apparently she has known history of hyponatremia which improved while she was at the rehab. Discharged about 4 days ago. Routine blood work drawn showed a sodium of 124. She had some change in mental status to hence she was referred to the emergency room. Found to have a sodium of 124 on admission. With IV fluids alone the sodium levels have improved to 129 today. Patient is somewhat drowsy and is unable to give me much of the history. Review of systems could not be obtained - Allergies Allergies: Allergies Iodinated Contrast Media Adverse Reaction (Verified 05/02/19 20:32) Vomiting - Current Medications Current Medications: Current Medications Acetaminophen (Tylenol) 650 mg PO Q6H PRN PRN PRN Reason: Pain Score 1-10/Temp > 100.7 F Albuterol/Ipratropium (Duoneb) 3 ml INHALATION Q4HWA.RT PRN PRN Reason: SHORTNESS OF BREATH Last Admin: 05/03/19 07:02 Dose: 3 ml Documented by: Budesonide (Pulmicort Aerosol) 0.5 mg INHALATION Q12H.RT JYOTI Last Admin: 05/03/19 07:02 Dose: 0.5 mg Documented by: Diltiazem HCl (Cardizem Cd) 240 mg PO DAILY JYOTI Last Admin: 05/03/19 10:07 Dose: 240 mg Documented by: Glucagon () 1 mg IM .X1 PRN PRN Reason: Hypoglycemia Heparin Sodium (Porcine) (Heparin Na) 5,000 unit SC Q8 JYOTI Last Admin: 05/03/19 06:17 Dose: 5,000 unit Documented by: Sodium Chloride () 1,000 mls @ 75 mls/hr IV .[id number] [facility] Last Infusion: 05/03/19 09:57 Dose: 75 mls/hr Documented by: Famotidine 20 mg/ Sodium (Chloride) 10 mls @ 300 mls/hr IV Q12 JYOTI Last Infusion: 05/03/19 10:14 Dose: Infused Documented by: Dextrose (Dextrose 10%-Water) 250 mls @ 999 mls/hr IV .Q16M PRN; Protocol PRN Reason: HYPOGLYCEMIA Insulin Human Lispro (Humalog Kwpatriciapen (Bkc)) 0 unit SC ACHS [facility]; Protocol Last Admin: 05/03/19 12:06 Dose: 1 u Documented by: Lisinopril (Zestril) 20 mg PO DAILY [facility] Last Admin: 05/03/19 10:07 Dose: 20 mg Documented by: Metoprolol Succinate (Toprol Xl (Beta Dionisio)) 100 mg PO DAILY [facility] Last Admin: 05/03/19 10:07 Dose: 100 mg Documented by: Nutritional Formula (Lactose Free) (Glucerna Shake) 120 ml PO TIDCM [facility] Last Admin: 05/03/19 12:09 Dose: 120 ml Documented by: Ondansetron HCl (Zofran) 4 mg IV Q8H PRN PRN PRN Reason: NAUSEA/VOMITING Quetiapine Fumarate (Seroquel) 50 mg PO DAILY [facility] Last Admin: 05/03/19 10:07 Dose: 50 mg Documented by: Quetiapine Fumarate (Seroquel) 75 mg PO QHS [facility] Sodium Chloride () 10 - 40 ml IV UD PRN PRN Reason: SALINE FLUSH Last Admin: 05/03/19 03:11 Dose: 10 ml Documented by: - Past Medical History Past Medical History (Chronic Problems): Chronic Problems Compression fracture (Chronic) Hypertension (Chronic) - Past Surgical History Surgical History: noncontributory - Social History Smoking Status: Current every day smoker Alcohol: None Drugs: None - Family History Maternal History Items: Unknown Paternal History Items: Unknown Review of Systems Unable to obtain accurate/complete ROS d/t: due to mental status Patient Problems: Active and Suspected Problems Acute hyponatremia (Acute) Leukocytosis, unspecified (Acute) - Physical Exam Vitals/I&O's: Vital Signs Temp Pulse Resp BP Pulse Ox 98.2 F 80 18 138/64 H 95 05/03/19 09:00 05/03/19 10:07 05/03/19 09:00 05/03/19 10:07 05/03/19 09:00 Oxygen Delivery Method Room Air Weight: 64.1 kg Body Mass Index (BMI) 27.3 Intake and Output for Last 24 Hours 05/01/19 05/02/19 05/03/19 23:59 23:59 23:59 Intake Total 1693.33 / 1693.33 Output Total 400 / 400 Balance -400 / -400 1693.33 / 1693.33 General: No apparent distress HEENT: Atraumatic, PERRLA, EOMI, Normocephalic Neck: Supple, No JVD, Negative Carotid Bruits Lungs: Clear to auscultation, Normal air movement Cardiovascular: Regular rate, No murmurs Abdomen: Bowel Sounds Present, Soft, Non Tender Extremities: No edema, Capillary Refill Less than 3 Seconds Skin: No rashes, No breakdown Musculoskeletal: No Tenderness to Palpation of Joints or Extremities Laboratory Results 05/02/19 23:16: WBC 17.4 H, RBC 4.87, Hgb 13.1, Hct 38.9, MCV 79.9 L, MCH 26.9 L , MCHC 33.7, RDW Std Deviation 37.3, RDW Coeff of Erinn 13.2, Plt Count 328, MPV 8.0, Immature Gran % (Auto) 1.400 H, Neut % (Auto) 60.7, Lymph % (Auto) 24.0, [place] % (Auto) 13.1 H, Eos % (Auto) 0.5, Baso % (Auto) 0.3, Absolute Neuts (auto) 10.6 H, Absolute Lymphs (auto) 4.16, Nucleated RBC % 0, Differential Comment SCANNED, Diff Path Review August foll 05/02/19 23:16: Sodium 124 L, Potassium 5.0, Chloride 91 L, Carbon Dioxide 25.0, Anion Gap 8, BUN 14, Creatinine 0.56, Estim Creat Clear Calc 34.91, Est GFR (MDRD) Af Amer 134, Est GFR (MDRD) Non-Af 111, BUN/Creatinine Ratio 24.8 H, Glucose 133 H, Calcium 9.5 05/02/19 23:26: Urine Color Yellow, Urine Clarity Clear, Urine pH 7.0, Ur Specific [place] 1.005, Urine Protein Negative, Urine Glucose (UA) Normal, Urine Ketones Negative, Urine Occult Blood Negative, Urine Nitrite Negative, Urine Bilirubin Negative, Urine Urobilinogen Normal, Ur Leukocyte Esterase Negative, Urine RBC 0 SEEN, Urine WBC 0 SEEN, Ur Squamous Epith Cells 0 SEEN, Urine Bacteria 0 SEEN, Urine Mucus 0 SEEN 05/02/19 23:26: Urine Osmolality 236 05/02/19 23:26: Ur Random Sodium 58 05/03/19 05:00: Serum Osmolality 256 L 05/03/19 05:30: WBC 13.7 H, RBC 4.53, Hgb 12.2, Hct 36.4 L, MCV 80.4 L, MCH 26.9 L, MCHC 33.5, RDW Std Deviation 37.8, RDW Coeff of Erinn 13.1, Plt Count 350, MPV 8.2, Immature Gran % (Auto) 1.200 H, Neut % (Auto) 55.6, Lymph % (Auto) 27.5, [place]oun % (Auto) 14.7 H, Eos % (Auto) 0.7, Baso % (Auto) 0.3, Absolute Neuts (auto) 7.6, Absolute Lymphs (auto) 3.77, Nucleated RBC % 0, Reactive Lymphocytes 1+ 05/03/19 05:30: Sodium 129 L, Potassium 3.9, Chloride 95 L, Carbon Dioxide 28.0, Anion Gap 6, BUN 11, Creatinine 0.54 L, Estim Creat Clear Calc 34.91, Est GFR (MDRD) Af Amer 143, Est GFR (MDRD) Non-Af 118, BUN/Creatinine Ratio 20.6 H, Glucose 119 H, Calcium 9.2, Total Bilirubin 0.20, AST 12 L, ALT 13, Alkaline Phosphatase 106, Total Protein 6.6, Albumin 3.0 L, Globulin 3.6, Albumin/Globulin Ratio 0.8 L 05/03/19 06:12: POC Glucose 130 H 05/03/19 12:01: POC Glucose 202 H Current Medications Acetaminophen (Tylenol) 650 mg PO Q6H PRN PRN PRN Reason: Pain Score 1-10/Temp > 100.7 F Albuterol/Ipratropium (Duoneb) 3 ml INHALATION Q4HWA.RT PRN PRN Reason: SHORTNESS OF BREATH Last Admin: 05/03/19 07:02 Dose: 3 ml Documented by: Budesonide (Pulmicort Aerosol) 0.5 mg INHALATION Q12H.RT JYOTI Last Admin: 05/03/19 07:02 Dose: 0.5 mg Documented by: Diltiazem HCl (Cardizem Cd) 240 mg PO DAILY [facility] Last Admin: 05/03/19 10:07 Dose: 240 mg Documented by: Glucagon () 1 mg IM .X1 PRN PRN Reason: Hypoglycemia Heparin Sodium (Porcine) (Heparin Na) 5,000 unit SC Q8 [facility] Last Admin: 05/03/19 06:17 Dose: 5,000 unit Documented by: Sodium Chloride () 1,000 mls @ 75 mls/hr IV .[id number] [facility] Last Infusion: 05/03/19 09:57 Dose: 75 mls/hr Documented by: Famotidine 20 mg/ Sodium (Chloride) 10 mls @ 300 mls/hr IV Q12 [facility] Last Infusion: 05/03/19 10:14 Dose: Infused Documented by: Dextrose (Dextrose 10%-Water) 250 mls @ 999 mls/hr IV .Q16M PRN; Protocol PRN Reason: HYPOGLYCEMIA Insulin Human Lispro (Humalog Kwikpen (Bkc)) 0 unit SC ACHS [facility]; Protocol Last Admin: 05/03/19 12:06 Dose: 1 u Documented by: Lisinopril (Zestril) 20 mg PO DAILY [facility] Last Admin: 05/03/19 10:07 Dose: 20 mg Documented by: Metoprolol Succinate (Toprol Xl (Beta Dionisio)) 100 mg PO DAILY [facility] Last Admin: 05/03/19 10:07 Dose: 100 mg Documented by: Nutritional Formula (Lactose Free) (Glucerna Shake) 120 ml PO TIDCM [facility] Last Admin: 05/03/19 12:09 Dose: 120 ml Documented by: Ondansetron HCl (Zofran) 4 mg IV Q8H PRN PRN PRN Reason: NAUSEA/VOMITING Quetiapine Fumarate (Seroquel) 50 mg PO DAILY [facility] Last Admin: 05/03/19 10:07 Dose: 50 mg Documented by: Quetiapine Fumarate (Seroquel) 75 mg PO QHS [facility] Sodium Chloride () 10 - 40 ml IV UD PRN PRN Reason: SALINE FLUSH Last Admin: 05/03/19 03:11 Dose: 10 ml Documented by: Assessment/Plan All Active Problems Recent compression fractures (Acute) Urinary tract infection (Acute) Hyponatremia (Acute) Acute hyponatremia (Acute) Leukocytosis, unspecified (Acute) Hyponatremia. Clinically no signs of hyper or hypovolemia. Urine sodium is more than 20 and urine osmolality more than 100. This is consistent with SIADH. However urine osmolality is on the lower side so there might be a component of polydipsia or poor osmolar intake. She is on Seroquel which can potentially cause SIADH. TSH was normal. Since sodium is improved to 129, no further work- up necessary. In general neurological symptoms are relatively rare unless the sodium is less than 120. Continue IV fluids for now. If her sodium levels stay near 130 or higher, no changes needed. If not will add salt tablets.
[2019-05-03 13:51] LABS: Pathologist Review Reviewed
[2019-05-03 14:46] LABS: Thyroid Stim Hormone (TSH) 0.38 uIU/mL (0.358-3.74)
--- NOTE | 2019-05-03 15:11 | CASEMGMT ---
Patient does not have a Healthcare POA or Healthcare LW as indicated in nursing admission questions. Nicole MARROQUIN MSW
[2019-05-03 16:25] LABS: Bedside Glucose 237 mg/dL (70-110)
[2019-05-03] MEDS: Menthol/Lanolin/Calamine/Znox 113 GM Tube 1 APPLIC TOPICAL (22:30)
[2019-05-03 22:36] LABS: Bedside Glucose 163 mg/dL (70-110)
[2019-05-03] MEDS: QUEtiapine 25 MG Tablet 75 MG PO (22:37)
[2019-05-04] VITALS (9 sets, daily range): BP systolic 126–141; BP diastolic 62–63; PULSE 51–62; RESP 16–18; TEMP 36.8–37; O2SAT 92–97
[2019-05-04 06:11] LABS: Absolute Lymphocyte Count 3.86 X10^3/uL (0.83-4.51); Absolute Neutrophil Count 6.4 X10^3/uL (2.0-7.7); Basophil# 0.02 X10^3/uL; Basophil% 0.2 % (0-1); Eosinophil# 0.07 X10^3/uL; Eosinophils% 0.6 % (0-5); Hemoglobin 11.7 g/dL (12.0-15.0); Lymphocyte # 3.86 X10^3/ul (4.0); Lymphocyte % 31.4 % (19-41); Mean Corp Hgb Conc 32.5 g/dL (32-36); Mean Corpuscular Hgb 26.4 pg (27.0-32.0); Mean Corpuscular Volume 81.3 fL (81-99); Mean Platelet Vol. 8.4 fl (6.2-12.0); Monocyte% 14.6 % (0-10); NRBC Flagged by Analyzer 0 % (0-5); Neutrophil # 6.42 X10^3/uL (2.7-7.7); Neutrophil % 52.1 % (47-70); POSITIVE DIFFERENTIAL YES; Platelet Count 337 K/mm3 (150-450); RBC Distribution Width CV 13.4 % (11.6-14.6); RBC Distribution Width SD 39.7 fl (35.1-43.9); Red Blood Count 4.43 M/mm3 (4.2-5.4); White Blood Count 12.3 K/mm3 (4.4-11.0)
[2019-05-04 06:14] LABS: Differential Indicated SCAN CRITERIA MET
[2019-05-04] MEDS: Heparin Injection (Vial) 5,000 UNIT/ML VIAL 5000 UNIT SC (06:15)
[2019-05-04] MEDS: Nystatin Powder 15gm Bottle 1 APPLIC TOPICAL (06:15)
[2019-05-04 06:23] LABS: Anion Gap 6 (5-15); BUN 12 mg/dL (7-18); BUN/Creat Ratio 18.4 RATIO (10-20); Calcium,Total 9.4 mg/dL (8.5-10.1); Chloride 99 mmol/L (98-107); Creatinine, Serum 0.65 mg/dL (0.55-1.02); EST Glomerular Filtration Rate 94 mL/min (>60); Est Glom Filt Rate - Afr Amer 114 mL/min (>60); Estimated Creatinine Clearance 34.91 ml/min; Glucose 132 mg/dL (74-106); Sodium Level 132 mmol/L (136-145)
[2019-05-04 06:26] LABS: Bedside Glucose 143 mg/dL (70-110)
[2019-05-04 06:38] LABS: Differential Comment SCANNED; Reactive Lymphocyte 3+
[2019-05-04] MEDS: Budesonide Respules 0.5 MG/2 ML AMPUL.NEB. INHALATION (06:45)
[2019-05-04] MEDS: Ipratropium/Albuterol Sulfate 3 ML AMPUL.NEB INHALATION (06:45)
--- NOTE | 2019-05-04 09:59 | PCM.DC ---
- Discharge Diagnoses Current Active Problems: Current Active and Chronic Problems Acute hyponatremia (Acute) Leukocytosis, unspecified (Acute) Compression fracture (Chronic) Hypertension (Chronic) You will use the following diet at home:: Calorie/Carbohydrate Controlled (specify 1200, 1400, etc) - 1800 meri., Cardiac Your food should be the consistency of: Regular Discharge Activity: Return to Normal Activity Weight Bearing Status: Weight bearing as tolerated Call your doctor if you observe: Fever of 101 or Higher, Shortness of breath, Dizziness, Fainting spells, Swelling in the ankles, Chest pain, Increased palpitations (irregular heartbeat), Uncontrolled pain Allergies/Adverse Reactions: Allergies Iodinated Contrast Media Adverse Reaction (Verified 05/02/19 20:32) Vomiting Medications to take at Discharge Albuterol IH (ProAir) [Proair Hfa] 1 - 2 puff INHALATION Q4H PRN PRN 05/03/19 Diltiazem HCl [Cartia Xt] 240 mg PO DAILY 05/03/19 Famotidine 20 mg PO DAILY 05/03/19 Fluticasone/Vilanterol [Breo Ellipta 100-25 Mcg INH] 1 puff IH QHS 05/03/19 Lisinopril 20 mg PO DAILY 05/03/19 Metformin HCl 500 mg PO BID 05/03/19 Metoprolol(XL)Succ [Toprol Xl (Beta Dionisio)] 100 mg PO DAILY 05/03/19 Potassium Chloride [Klor-Con M20] 20 meq PO DAILY 05/03/19 Quetiapine Fumarate [Seroquel] 25 mg PO DAILY #30 tab 05/04/19 Quetiapine Fumarate [Seroquel] 50 mg PO QHS #0 05/04/19 The following prescriptions were given: Quetiapine Fumarate [Seroquel] 25 mg PO DAILY #30 tab Transmission Status: Pending to [id number] Primary Care Physician: John Del Valle MD [Primary Care Provider] - Please follow up with your Primary Care Physician in: 1 week. Test Results: Test results from this visit will be discussed in further detail at your follow-up appointment, if applicable.
[2019-05-04] MEDS: dilTIAZem CD 240 MG Capsule PO (10:02)
[2019-05-04] MEDS: QUEtiapine 25 MG Tablet 50 MG PO (10:02)
[2019-05-04] MEDS: Lisinopril 20 MG Tablet PO (10:02)
[2019-05-04] MEDS: Metoprolol(XL)Succ 100 MG Tablet PO (10:02)
[2019-05-04] MEDS: Famotidine 200 MG/20 ML MDV 20 MG in 0.9% Normal Saline (Pres. free 8 ML 300 MG IV (10:03)
[2019-05-04] MEDS: Menthol/Lanolin/Calamine/Znox 113 GM Tube 1 APPLIC TOPICAL (10:03)
[2019-05-04] MEDS: 0.9% Saline Lock 10 ML Syringe IV (10:06)
[2019-05-04] MEDS: Glucerna Shake 120 ML LIQUID PO ×2 (10:09→11:54)
--- NOTE | 2019-05-04 10:32 | PHA.DC.MR ---
Pharmacy Service has performed discharge medication reconciliation for this patient. Home Medications Albuterol IH (ProAir) [Proair Hfa] 1 - 2 puff INHALATION Q4H PRN PRN 05/03/19 Diltiazem HCl [Cartia Xt] 240 mg PO DAILY 05/03/19 Famotidine 20 mg PO DAILY 05/03/19 Fluticasone/Vilanterol [Breo Ellipta 100-25 Mcg INH] 1 puff IH QHS 05/03/19 Lisinopril 20 mg PO DAILY 05/03/19 Metformin HCl 500 mg PO BID 05/03/19 Metoprolol(XL)Succ [Toprol Xl (Beta Dionisio)] 100 mg PO DAILY 05/03/19 Potassium Chloride [Klor-Con M20] 20 meq PO DAILY 05/03/19 Quetiapine Fumarate [Seroquel] 25 mg PO DAILY #30 tab 05/04/19 Quetiapine Fumarate [Seroquel] 50 mg PO QHS #0 05/04/19 The patient's discharge medication list was reviewed for discrepancies and discrepancies were resolved.
--- NOTE | 2019-05-04 11:24 | CASEMGMT ---
Per therapy, pt did fairly well and they do not recommend any further therapy at this time. Pt states she still plans to go home and states that she does not want any further therapy at this time d/t cost anyway. Pt would like this KITTY GUZMÁN to call her daughter, Lisandra, to notify of discharge and to clarify if there are any further needs at home at this time. Lisandra is aware of discharge at this time and states that she will work on finding someone to pick pt up from the hospital because pt is unable to get in her truck. Daughter states no concerns at finding ride at this time. Daughter also states no need for any further resources at this time. Daughter states no further questions/concerns/needs at this time. Tin TANG updated on all at this time, voices understanding. Tonja TANG CM
[2019-05-04] MEDS: Insulin Lispro 100 UNIT/ML INSULN.PEN SC (11:52)
[2019-05-04 12:01] LABS: Bedside Glucose 179 mg/dL (70-110)
--- NOTE | 2019-05-04 12:12 | PCM.DC.SUM ---
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 - Secondary Discharge Diagnosis Chronic Problems Compression fracture (Chronic) Hypertension (Chronic) Hospital Course and Treatment Imaging Results: Clinical Impression(s) from Imaging Studies Chest X-Ray 05/02/19 22:40 IMPRESSION: Prominent central pulmonary vasculature. Electronically Signed: Efren Al DO at 23:28 EST Tel [phone], Service support , Consultations 05/03/19 03:41 Consult: Onc/Wound/pomologist Routine Comment: Reason for Consult:: stage [address] Chavarria, nephrology. Operations: None Procedures: None Summary of Care Provided: Patient seen and examined on the day of discharge and appeared to be stable for discharge home. She denies any complaints. Her vitals are stable. The patient is a 74 year old F patient presented to the emergency room because of abnormal blood work and reported change in mental status although she remained alert and oriented x3 throughout admission. She was found to have sodium of 124 upon admission. There was no evidence of neurological manifestations of hyponatremia. There was no seizure. Work-up was done for this hyponatremia and patient found to have SIADH. Patient has been on Seroquel which can cause SIADH. Her TSH and serum cortisol were normal. She did have mild leukocytosis which is probably reactive to acute stress and illness. She has been afebrile and there was no evidence of infection. Chest x-ray showed no acute findings. Urinalysis was clean without evidence of acute cystitis. Initially, she was given IV fluids and later, she was put on fluid restriction. Her sodium improved and it went up to 132 upon discharge. Patient felt better and no complaints on the day of discharge. Her vital signs were stable. Patient discharged home in a stable medical condition, I will decrease the dose of Seroquel from 50 mg daily down to 25 mg p.o. daily and from 75 mg p.o. nightly down to 50 mg p.o. nightly, continued on her other previous home medications without any changes, recommended follow-up with PCP in 1 week. - Physical Exam Vitals/I&O's: Vital Signs Temp Pulse Resp BP Pulse Ox 98.2 F 62 18 141/63 H 97 05/04/19 12:00 05/04/19 12:00 05/04/19 12:00 05/04/19 12:00 05/04/19 12:00 Oxygen Delivery Method Room Air Weight: 138 lb 14.259 oz Body Mass Index (BMI) 27.3 Intake and Output for Last 24 Hours 05/02/19 05/03/19 05/04/19 23:59 23:59 23:59 Intake Total 2489.58 / 2589.58 230 / 230 Output Total 400 / 400 Balance -400 / -400 2489.58 / 2589.58 230 / 230 General: Alert, Oriented x3, Cooperative, No apparent distress HEENT: Atraumatic, PERRLA, EOMI, Normocephalic Oral: Moist Mucosa, No Gingival or Mucosal Lesions/ Ulcerations Neck: Supple, No JVD, Negative Carotid Bruits, Trachea Midline, Thyroid Normal Size and Texture Lungs: Clear to auscultation, Normal air movement, No rhonchi, No wheeze, No rales, Diminished Cardiovascular: Regular rate, Regular Rhythm, Normal S1, Normal S2, PMI Normal Abdomen: Bowel Sounds Present, Soft, Non Tender, Non-Distended, No Hepato-splenomegaly Extremities: No clubbing, No cyanosis, No edema Skin: No rashes, No breakdown Lymphatic: No Cervical, Supraclavicular, or Inguinal Adenopathy Neurological: Cranial nerves II-XII grossly intact, Neuro grossly intact Psych/Mental Status: Normal Affect, Appropriate Laboratory Results 05/02/19 23:16: Diff Path Review Reviewed 05/03/19 14:07: TSH 0.38 05/03/19 14:07: Cortisol 11.70 05/03/19 16:17: POC Glucose 237 H 05/03/19 22:29: POC Glucose 163 H 05/04/19 05:15: WBC 12.3 H, RBC 4.43, Hgb 11.7 L, Hct 36.0 L, MCV 81.3, MCH 26.4 L, MCHC 32.5, RDW Std Deviation 39.7, RDW Coeff of Erinn 13.4, Plt Count 337, MPV 8.4, Immature Gran % (Auto) 1.100 H, Neut % (Auto) 52.1, Lymph % (Auto) 31.4, [place] % (Auto) 14.6 H, Eos % (Auto) 0.6, Baso % (Auto) 0.2, Absolute Neuts (auto) 6.4, Absolute Lymphs (auto) 3.86, Nucleated RBC % 0, Differential Comment SCANNED, Diff Path Review May foll, Reactive Lymphocytes 3+ 05/04/19 05:15: Sodium 132 L, Potassium 4.0, Chloride 99, Carbon Dioxide 27.0, Anion Gap 6, BUN 12, Creatinine 0.65, Estim Creat Clear Calc 34.91, Est GFR (MDRD) Af Amer 114, Est GFR (MDRD) Non-Af 94, BUN/Creatinine Ratio 18.4, Glucose 132 H, Calcium 9.4 05/04/19 06:14: POC Glucose 143 H 05/04/19 11:49: POC Glucose 179 H Current Medications Acetaminophen (Tylenol) 650 mg PO Q6H PRN PRN PRN Reason: Pain Score 1-10/Temp > 100.7 F Albuterol/Ipratropium (Duoneb) 3 ml INHALATION Q4HWA.RT PRN PRN Reason: SHORTNESS OF BREATH Last Admin: 05/04/19 06:45 Dose: 3 ml Documented by: Budesonide (Pulmicort Aerosol) 0.5 mg INHALATION Q12H.RT JYOTI Last Admin: 05/04/19 06:45 Dose: 0.5 mg Documented by: Calamine/Phenol (Calmoseptine Ointment) 1 applic TOPICAL BID JYOTI; Protocol Last Admin: 05/04/19 10:03 Dose: 1 applicatio Documented by: Diltiazem HCl (Cardizem Cd) 240 mg PO DAILY [facility] Last Admin: 05/04/19 10:02 Dose: 240 mg Documented by: Glucagon () 1 mg IM .X1 PRN PRN Reason: Hypoglycemia Heparin Sodium (Porcine) (Heparin Na) 5,000 unit SC Q8 [facility] Last Admin: 05/04/19 06:15 Dose: 5,000 unit Documented by: Famotidine 20 mg/ Sodium (Chloride) 10 mls @ 300 mls/hr IV Q12 JYOTI Last Infusion: 05/04/19 10:17 Dose: Infused Documented by: Dextrose (Dextrose 10%-Water) 250 mls @ 999 mls/hr IV .Q16M PRN; Protocol PRN Reason: HYPOGLYCEMIA Insulin Human Lispro (Humalog Kwikpen (Bkc)) 0 unit SC ACHS [facility]; Protocol Last Admin: 05/04/19 11:52 Dose: 1 u Documented by: Lisinopril (Zestril) 20 mg PO DAILY [facility] Last Admin: 05/04/19 10:02 Dose: 20 mg Documented by: Metoprolol Succinate (Toprol Xl (Beta Dionisio)) 100 mg PO DAILY [facility] Last Admin: 05/04/19 10:02 Dose: 100 mg Documented by: Nutritional Formula (Lactose Free) (Glucerna Shake) 120 ml PO TIDCM [facility] Last Admin: 05/04/19 11:54 Dose: 120 ml Documented by: Nystatin (Mycostatin Powder) 1 applic TOPICAL TID [facility]; Protocol Last Admin: 05/04/19 06:15 Dose: 1 applicatio Documented by: Ondansetron HCl (Zofran) 4 mg IV Q8H PRN PRN PRN Reason: NAUSEA/VOMITING Quetiapine Fumarate (Seroquel) 50 mg PO DAILY [facility] Last Admin: 05/04/19 10:02 Dose: 50 mg Documented by: Quetiapine Fumarate (Seroquel) 75 mg PO QHS [facility] Last Admin: 05/03/19 22:37 Dose: 75 mg Documented by: Sodium Chloride () 10 - 40 ml IV UD PRN PRN Reason: SALINE FLUSH Last Admin: 05/04/19 10:06 Dose: 10 ml Documented by: Discharge Activity: Return to Normal Activity Weight Bearing Status: Weight bearing as tolerated Call your doctor if you observe: Fever of 101 or Higher, Shortness of breath, Dizziness, Fainting spells, Swelling in the ankles, Chest pain, Increased palpitations (irregular heartbeat), Uncontrolled pain Home Medications: Medications to take at Discharge Albuterol IH (ProAir) [Proair Hfa] 1 - 2 puff INHALATION Q4H PRN PRN 05/03/19 Diltiazem HCl [Cartia Xt] 240 mg PO DAILY 05/03/19 Famotidine 20 mg PO DAILY 05/03/19 Fluticasone/Vilanterol [Breo Ellipta 100-25 Mcg INH] 1 puff IH QHS 05/03/19 Lisinopril 20 mg PO DAILY 05/03/19 Metformin HCl 500 mg PO BID 05/03/19 Metoprolol(XL)Succ [Toprol Xl (Beta Dionisio)] 100 mg PO DAILY 05/03/19 Potassium Chloride [Klor-Con M20] 20 meq PO DAILY 05/03/19 Quetiapine Fumarate [Seroquel] 25 mg PO DAILY #30 tab 05/04/19 Quetiapine Fumarate [Seroquel] 50 mg PO QHS #0 05/04/19 Following Prescrptions Were Given to Patient: Quetiapine Fumarate [Seroquel] 25 mg PO DAILY #30 tab Transmission Status: Received by [id number] Primary Care Physician: John Del Valle MD [Primary Care Provider] - Please follow up with your Primary Care Physician in: 1 week. Disposition: Home Minutes spent on discharge:: 25 Patient Condition:: Stable Medical Necessity - Tobacco Use Smoking Status: Current every day smoker Tobacco Use: Cigarettes Meaningful Use Info Meaningful Use Diagnoses (Choose all that apply): None applicable Code Visit Inpatient E&M: 11400 Disch Hosp
[2019-05-04 14:35] LABS: Pathologist Review Reviewed
== END 2019-05-04 13:00 | disposition home or self-care (01) | DRG 645 ==
LOC: ED 05-03 00:38 → PCU 05-03 00:39
PROVIDERS: Admitting Provider Internal Medicine; Emergency Provider Emergency Medicine; Family Provider Family Medicine; PCP Family Medicine; Visit Provider Hospitalist
DX: E22.2 Syndrome of inappropriate secretion of antidiuretic hormone (principal); L89.152 Pressure ulcer of sacral region, stage 2; E11.9 Type 2 diabetes mellitus without complications; I10 Essential (primary) hypertension; T43.595A Adverse effect of other antipsychotics and neuroleptics, initial encounter; Z79.84 Long term (current) use of oral hypoglycemic drugs; F17.210 Nicotine dependence, cigarettes, uncomplicated
CPT/HCPCS: 36415; 71046; 80048; 80053; 81001; 82533; 82962; 83930; 83935; 84300; 84443; 85025; 87040; 93005; 94640; 97110; 97161; 97166; 97535; 97802; 99251; 99283; 99406; J7030; P9612; A4216; G0463; J3490

== ENCOUNTER → 2019-05-17 15:19 | Outpatient (CLI) | payer MEDICARE, SELFPAY ==
[2019-05-03 01:59] VITALS: BMI 27.3
[2019-05-17 17:49] LABS: ALB/GLOB Ratio 0.8 RATIO (0.9-2.4); AST(SGOT) 11 U/L (15-37); Alanine Aminotransfer ALT/SGPT 17 U/L (13-56); Albumin, Serum 3.4 g/dL (3.2-5.0); Alkaline Phosphatase 105 U/L (45-117); Anion Gap 7 (5-15); BUN 13 mg/dL (7-18); BUN/Creat Ratio 17.5 RATIO (10-20); Calcium,Total 9.5 mg/dL (8.5-10.1); Chloride 107 mmol/L (98-107); Creatinine, Serum 0.74 mg/dL (0.55-1.02); EST Glomerular Filtration Rate 81 mL/min (>60); Est Glom Filt Rate - Afr Amer 98 mL/min (>60); Globulin 4.1 g/dL (2.2-4.2); Glucose 150 mg/dL (74-106); Potassium 4.5 mmol/L (3.5-5.1); Protein, Total 7.5 g/dL (6.4-8.2); Sodium Level 137 mmol/L (136-145)
== END ==
PROVIDERS: PCP Family Medicine; Referring Provider Family Medicine; Visit Provider Family Medicine
DX: E22.2 Syndrome of inappropriate secretion of antidiuretic hormone (principal)
CPT/HCPCS: 36415; 80053

== ENCOUNTER → 2019-05-25 13:25 | Outpatient (CLI) | payer MEDICARE, SELFPAY ==
[2018-09-21 08:29] VITALS: BMI 29.2
--- NOTE | 2019-05-25 13:31 | CT_ITS ---
STUDY: CT CHEST WITHOUT CONTRAST REASON FOR EXAM: Female, 74 years old. Nodule follow-up RADIATION DOSAGE (If Supplied By Facility): CTDIvol = ( 11.35 ) mGy, DLP = ( 367.52 ) mGycm TECHNIQUE: Transaxial imaging was performed without the administration of intravenous contrast material. Individualized dose optimization techniques were used for this CT. COMPARISON: 11 November 2018 FINDINGS: Examination is mildly degraded due to motion artifact related to respiratory motion. Diagnostic information is available. There are no high-risk pulmonary findings. There are no thoracic findings requiring further radiologic attention. There is mild left lower lobe atelectasis. There is severe coronary artery disease. There is mild cardiomegaly involving all 4 chambers. There is mild pulmonary arterial hypertension. there is severe enlargement of the thyroid with mild mass effect on the trachea and retrosternal extension. There are subacute compression burst fractures of T12 and possibly acute fracture of L1. There is mild thecal sac stenosis at T11-T12. CT/Chest without Contrast IMPRESSION: 1. Unremarkable lungs. 2. Severe coronary artery disease. Cardiology referral advised. 3. Acute/subacute T12 and L1 spinal fractures. Specialty referral advised. 4. Enlarged thyroid, thyroid ultrasonography is advised for further evaluation. Electronically Signed: Doc Pierson, at 17:17 EST Tel , Service support ,
== END ==
PROVIDERS: PCP Family Medicine; Referring Provider Family Medicine; Visit Provider Family Medicine
DX: R91.1 Solitary pulmonary nodule (principal)
CPT/HCPCS: 71250

== ENCOUNTER → 2019-06-12 09:53 | Outpatient (CLI) | payer MEDICARE, SELFPAY ==
[2019-05-03 01:59] VITALS: BMI 27.3
--- NOTE | 2019-06-12 09:57 | US_ITS ---
STUDY: THYROID ULTRASOUND REASON FOR EXAM: Female, 74 years old. NODULE-Goiter TECHNIQUE: Ultrasound evaluation of the thyroid was performed with real-time and static nicole-scale imaging. COMPARISON: 11/16/2018 FINDINGS: RIGHT LOBE: The right lobe of the thyroid gland measures 9.8 x 4.3 x 4.8 cm. There is a heterogeneous echotexture. Multiple nodules, largest measuring 4.3 x 3.7 x 2.6 cm which is predominantly solid. LEFT LOBE: The left lobe of the thyroid gland measures 7.8 x 3.3 x 3.1 cm. There is a heterogeneous echotexture. Multiple nodules, largest measuring 2.1 x 1.5 x 1.4 cm. ISTHMUS: The isthmus measures 1.1 cm. Isthmus solid nodule measuring 2.1 x 0.7 x 1.6 cm The regional lymph nodes are normal. US/Thyroid IMPRESSION: Grossly stable appearance of multinodular goiter Electronically Signed: Manolo Meneses DO at 9:43 EST Tel , Service support ,
== END ==
PROVIDERS: PCP Family Medicine; Referring Provider Family Medicine; Visit Provider Family Medicine
DX: E01.0 Iodine-deficiency related diffuse (endemic) goiter (principal)
CPT/HCPCS: 76536

== ENCOUNTER → 2019-09-29 14:54 | Outpatient (CLI) | payer MEDICARE, SELFPAY ==
[2019-05-03 01:59] VITALS: BMI 27.3
[2019-09-29 18:00] LABS: Absolute Lymphocyte Count 2.82 X10^3/uL (0.83-4.51); Absolute Neutrophil Count 6.4 X10^3/uL (2.0-7.7); Basophil# 0.03 X10^3/uL; Basophil% 0.3 % (0-1); Eosinophil# 0.04 X10^3/uL; Eosinophils% 0.4 % (0-5); Hematocrit 42.3 % (37-47); Hemoglobin 13.1 g/dL (12.0-15.0); Lymphocyte # 2.82 X10^3/ul (4.0); Lymphocyte % 25.1 % (19-41); Mean Corpuscular Hgb 26.6 pg (27.0-32.0); Mean Corpuscular Volume 85.8 fL (81-99); Mean Platelet Vol. 9.7 fl (6.2-12.0); Monocyte# 1.89 X10^3/uL; Monocyte% 16.8 % (0-10); NRBC Flagged by Analyzer 0 % (0-5); Neutrophil % 56.9 % (47-70); POSITIVE DIFFERENTIAL YES; Platelet Count 361 K/mm3 (150-450); RBC Distribution Width CV 14.4 % (11.6-14.6); Red Blood Count 4.93 M/mm3 (4.2-5.4); White Blood Count 11.2 K/mm3 (4.4-11.0)
[2019-09-29 18:14] LABS: Vitamin B12 611 pg/mL (211-911); Vitamin D,25 Hydroxy 89.7 ng/mL
[2019-09-29 18:15] LABS: Hemoglobin A1c 7.2 % (3.8-5.6)
[2019-09-29 18:28] LABS: ALB/GLOB Ratio 0.7 RATIO (0.9-2.4); AST(SGOT) 15 U/L (15-37); Alanine Aminotransfer ALT/SGPT 16 U/L (13-56); Albumin, Serum 3.4 g/dL (3.2-5.0); Alkaline Phosphatase 121 U/L (45-117); Anion Gap 6 (5-15); BUN 11 mg/dL (7-18); BUN/Creat Ratio 13.4 RATIO (10-20); Calcium,Total 9.6 mg/dL (8.5-10.1); Chloride 103 mmol/L (98-107); Creatinine, Serum 0.82 mg/dL (0.55-1.02); EST Glomerular Filtration Rate 72 mL/min (>60); Est Glom Filt Rate - Afr Amer 87 mL/min (>60); Globulin 4.6 g/dL (2.2-4.2); Glucose 132 mg/dL (74-106); Potassium 4.9 mmol/L (3.5-5.1); Sodium Level 138 mmol/L (136-145); Thyroid Stim Hormone (TSH) 0.34 uIU/mL (0.358-3.74)
[2019-09-29 18:40] LABS: Differential Indicated SCAN CRITERIA MET
[2019-09-29 18:42] LABS: Platelet Estimate ADEQUATE (ADEQ); Red Cell Morphology NORM C+C NORMAL (NORM C&C)
[2019-10-02 12:15] LABS: Pathologist Review Reviewed
[2019-10-05 15:30] LABS: Vitamin B1, Thiamine 151.3 nmol/L (66.5-200.0)
== END ==
PROVIDERS: PCP Family Medicine; Referring Provider Family Medicine; Visit Provider Family Medicine
DX: E11.9 Type 2 diabetes mellitus without complications (principal); I10 Essential (primary) hypertension; E55.9 Vitamin D deficiency, unspecified; Z72.0 Tobacco use; F03.90 Unspecified dementia, unspecified severity, without behavioral disturbance, psychotic disturbance, mood disturbance, and anxiety
CPT/HCPCS: 36415; 80053; 82306; 82607; 83036; 84425; 84443; 85025

== ENCOUNTER → 2019-11-09 15:14 | Outpatient (CLI) | payer MEDICARE, SELFPAY ==
[2019-05-03 01:59] VITALS: BMI 27.3
== END ==
PROVIDERS: PCP Family Medicine; Referring Provider Family Medicine; Visit Provider Family Medicine
DX: R82.90 Unspecified abnormal findings in urine (principal)
CPT/HCPCS: 87086; 87088; 87186

== ENCOUNTER 2019-11-24 09:22 | Emergency (ER) | payer MEDICARE, SELFPAY ==
[2019-05-03 01:59] VITALS: BMI 27.3
[2019-11-24 09:23] VITALS: PULSE 0; RESP 0
--- NOTE | 2019-11-24 09:29 | ED.DCSUM_ITS ---
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 She had sustained a fall several weeks ago. Today they were outside smoking the patient needed to go inside to the bathroom. Patient went to the bathroom the daughter states she heard a loud thud. She was unable to get the door open because the patient's head was in front of the door. After a couple of minutes the patient got up and was able to move. Daughter states the patient on the commode where she was complaining of shortness of breath. She took several doses of her MDI. At that point she then went unresponsive. When EMS arrived on scene at 0954 there was no pulse and they began CPR. Eventually a pulse was obtained a lost the pulse again in route to the hospital. A total of 4 epinephrines and 2 bicarbonates were given. An eye gel was secured. Auto pulse initiated. Past Medical History - Allergies and Home Meds Allergies/Adverse Reactions: Allergies Sulfa (Sulfonamide Antibiotics) Allergy (Verified 05/25/19 14:48) Hives atorvastatin Adverse Reaction (Verified 05/25/19 14:48) Nausea Iodinated Contrast Media Adverse Reaction (Verified 05/25/19 14:48) Vomiting Primary Care Physician: John Del Valle MD [Primary Care Provider] - Surgical History: cholecystectomy, hysterectomy, noncontributory, tonsillectomy, - Smoking Status: Current every day smoker - Family History Maternal Family History: Reports: Heart Disease Paternal Family History: Reports: Heart Disease Review of Systems ROS: Unable to Obtain Physical Exam General: Well nourished, Well developed Eyes: - - Nipples are fixed 4 mm ENT: - - I-gel in place Cardiovascular: - - Patient without pulse patient with no cardiac activity on ultrasound Respiratory: - - Bagged respirations Skin: Pallor Neurological: - - Patient is unresponsive Diagnostic/Tx/Re-eval - Medical Decision Making Upon arrival in the emergency department a faint pulse was detected but this was quickly lost. No cardiac motion was seen on ultrasound and CPR started. She received a epinephrine. CPR was continued. The next pulse check patient was noted to have a bradycardic electrical activity but no pulse and no cardiac activity. It had been 30 minutes since EMS arrival and the patient was pronounced at 0927. ED Disposition - Plan for ED Patient: Disposition: Diagnosis: Cardiac arrest Referrals: John Del Valle MD [Primary Care Provider] -
--- NOTE | 2019-11-24 09:38 | CPS ---
intubated when arrived in ER
[2019-11-24 09:56] VITALS: TEMP 35.5; BMI 27.5
--- NOTE | 2019-11-24 10:37 | CM.ED ---
Social Work Responding to code blue. Support provided for family. Questions answered. Family reporting all family has been notified. Patient daughter, Lisandra is health care power of disability attorney. Sampson HYDE, CARA
== END 2019-11-24 12:39 ==
LOC: ED 09:59
PROVIDERS: Emergency Provider Emergency Medicine; PCP Family Medicine
DX: I46.9 Cardiac arrest, cause unspecified (principal); F17.200 Nicotine dependence, unspecified, uncomplicated
CPT/HCPCS: 92950; 99281; 99291; A4216